=== PATIENT | male | born 1965 | race Caucasian/White ===

== ENCOUNTER 2022-02-14 12:41 | Inpatient (IN) | payer MEDICARE, OTHER ==
[2022-02-14] MEDS ORDERED: ACETAMINOPHEN TAB 325 MG TAB PO PRN (12:52)
[2022-02-14] MEDS ORDERED: NALOXONE 0.4 MG/ML 1 ML VIAL IV PRN (12:52)
[2022-02-14] MEDS ORDERED: NOREPINEPHRINE 4 MG in SODIUM CHLORIDE 0.9% 250 ML IV SCH (13:00)
[2022-02-14] MEDS ORDERED: NOREPINEPHRINE 32 MG in SODIUM CHLORIDE 0.9% 250 ML IV SCH (13:00)
--- NOTE | 2022-02-14 13:04 | ED ---
General Adult HPI - General Chief complaint: Shortness of Breath Stated complaint: pneumonia Time Seen by Provider: 02/14/22 12:43 Source: patient, EMS, RN notes reviewed, old records reviewed Mode of arrival: EMS Limitations: altered mental status - History of Present Illness Initial comments: 56-year-old male who had presented as a transfer from outside hospital. Patient is nonambulatory, he is blind. He has a neurodegenerative disorder. Patient was transferred with septic shock for bilateral pneumonia. He does have history of recurrent UTI however urinalysis was unremarkable. He had significant laboratory abnormalities prior to transfer. He was started on norepinephrine through right femoral central line and transferred for ICU placement. He was given daptomycin and cefepime prior to transfer. Blood cultures were obtained and are pending. Patient is a DO NOT RESUSCITATE. - Related Data Home Medications Medication Instructions Recorded Confirmed ARIPiprazole [Abilify] 10 mg PO HS 04/20/15 04/20/15 ARIPiprazole [Abilify] 20 mg PO DAILY 04/20/15 04/20/15 Atropine Ophth Soln 1% 5Ml [Isopto 1 drops LEFT EYE HS 04/20/15 04/20/15 Atropine 1% 5Ml] Divalproex [Depakote] 500 mg PO BID 04/20/15 04/20/15 Divalproex [Depakote] 500 mg PO BID 04/20/15 04/20/15 Docusate [Colace] 100 mg PO BID 04/20/15 04/20/15 LORazepam [Ativan] 1 mg PO BID PRN 04/20/15 04/20/15 Lactulose [Kristalose] 10 gm PO DAILY 04/20/15 04/20/15 OXcarbazepine [Trileptal] 300 mg PO BID 04/20/15 04/20/15 Ranitidine HCl 150 mg PO DAILY 04/20/15 04/20/15 Sertraline [Zoloft] 25 mg PO DAILY 04/20/15 04/20/15 Sertraline [Zoloft] 50 mg PO DAILY 04/20/15 04/20/15 Sodium Bicarbonate Tab 10 gm PO TID 04/20/15 04/20/15 Zonisamide [Zonegran] 75 mg PO HS 04/20/15 04/20/15 Zonisamide [Zonegran] 100 mg PO Q12HR 04/20/15 04/20/15 lamoTRIgine [LaMICtal] 25 mg PO BID 04/20/15 04/20/15 lamoTRIgine [LaMICtal] 200 mg PO BID 04/20/15 04/20/15 prednisoLONE ACETATE 1% OPHTH 1 drops LEFT EYE HS 04/20/15 04/20/15 [Pred Forte 1%] Allergies Allergy/AdvReac Type Severity Reaction Status Date / Time No Known Allergies Allergy Verified 04/20/15 10:38 Review of Systems ROS Statement: Those systems with pertinent positive or pertinent negative responses have been documented in the HPI. ROS Other: All systems not noted in ROS Statement are negative. Past Medical History Past Medical History: Seizure Disorder Additional Past Medical History / Comment(s): Epileptic, mentally impaired, blind History of Any Multi-Drug Resistant Organisms: None Reported Past Surgical History: Orthopedic Surgery Past Anesthesia/Blood Transfusion Reactions: No Reported Reaction Smoking Status: Never smoker Past Alcohol Use History: None Reported Past Drug Use History: None Reported - Past Family History Sister(s) Family Medical History: Cancer Brother(s) Family Medical History: Cancer General Exam Limitations: altered mental status General appearance: alert, in no apparent distress Head exam: Present: atraumatic, normocephalic ENT exam: Present: mucous membranes dry Neck exam: Present: normal inspection. Absent: tenderness, meningismus Respiratory exam: Present: rhonchi. Absent: respiratory distress Cardiovascular Exam: Present: regular rate, normal rhythm GI/Abdominal exam: Present: soft, other (Colostomy). Absent: distended, tenderness, guarding Extremities exam: Present: normal inspection, normal capillary refill Neurological exam: Present: alert Skin exam: Present: warm, dry, intact. Absent: cyanosis, diaphoretic Course Vital Signs 02/14/22 02/14/22 02/14/22 12:44 12:50 12:53 Temperature 99.2 F Pulse Rate 101 H 92 Respiratory 20 20 20 Rate Blood Pressure 91/81 100/62 O2 Sat by Pulse 100 99 Oximetry Medical Decision Making - Medical Decision Making 56-year-old male with septic shock transfer from outside hospital with bilateral pneumonia. Patient will be continued on antibiotics as well as norepinephrine. He had received a 3 L bolus prior to transfer. He'll be continued on IV fluids here. He'll be admitted to the ICU with Dr. Martin and Dr. Barrera on consult. Case discussed with Dr. Farley. All laboratory testing will be repeated. Critical Care Time Critical Care Time: Yes Total Critical Care Time: 35 Disposition Clinical Impression: Bilateral pneumonia, Septic shock Disposition: ADMITTED IP TO THIS [facility] Condition: Serious Is patient prescribed a controlled substance at d/c from ED?: No Referrals: None,Stated [Primary Care Provider] - 1-2 days Time of Disposition: 13:04
[2022-02-14] MEDS: NOREPINEPHRINE 32 MG in SODIUM CHLORIDE 0.9% 218 ML IV SCH (13:15)
[2022-02-14] MEDS: SODIUM CHLORIDE 0.9% 1,000 ML IV SCH ×2 (13:22→21:30)
[2022-02-14 13:37] LABS: Glucose,Whole Blood 99 mg/dL (75-99)
[2022-02-14 13:48] LABS: Appearance,Urine Cloudy (Clear); Bacteria,Urine Rare /hpf; Bilirubin,Urine Negative (Negative); Blood,Urine Moderate (Negative); Color,Urine Dark Yellow; Glucose,Urine (UA) Negative (Negative); Ketones,Urine Trace (Negative); Leukocyte Esterase,Urine Moderate (Negative); Mucus,Urine Moderate /hpf; Nitrite,Urine Negative (Negative); PH, Urine 5.5 (5.0-8.0); Protein,Urine 1+ (Negative); RBC,Urine 48 /hpf (0-5); Urobilinogen,Urine <2.0 mg/dL (<2.0); WBC,Urine 27 /hpf (0-5)
--- NOTE | 2022-02-14 14:11 | XR ---
EXAMINATION TYPE: XR chest 1V portable DATE OF EXAM: 02/14/2022 COMPARISON: None INDICATION: Pneumonia TECHNIQUE: Single frontal view of the chest is obtained. FINDINGS: The heart size is normal. The pulmonary vasculature is upper limits for normal. Patchy infiltrate is through the right mid and lower lung field. Some mild left infrahilar infiltrate may be present. Correlate for pneumonia. Atelectasis could be considered. IMPRESSION: 1. Right lower lobe and left infrahilar infiltrates. Correlate for atelectasis and pneumonia.
[2022-02-14 14:18] LABS: Partial Thromboplastin Time 22.1 sec (22.0-30.0); Prothrombin Time 10.9 sec (9.0-12.0)
[2022-02-14 14:21] LABS: ALT 48 U/L (4-49); African American GFR (CKD) >90 (>60 ml/min/1.73 sqM); Albumin 2.9 g/dL (3.5-5.0); Anion Gap 6 mmol/L; Blood Urea Nitrogen 14 mg/dL (9-20); Calcium 8.4 mg/dL (8.4-10.2); Carbon Dioxide 20 mmol/L (22-30); Chloride 110 mmol/L (98-107); Glucose 97 mg/dL (74-99); Non-African American GFR(CKD) >90 (>60 ml/min/1.73 sqM); Potassium 3.6 mmol/L (3.5-5.1); Sodium 136 mmol/L (137-145); Total Protein 5.6 g/dL (6.3-8.2)
[2022-02-14 14:22] LABS: AST 77 U/L (17-59); Alkaline Phosphatase 74 U/L (38-126); Magnesium 1.6 mg/dL (1.6-2.3)
[2022-02-14 14:24] LABS: Glucose,Whole Blood 84 mg/dL (75-99)
[2022-02-14 14:24] LABS: HCT 38.3 % (39.0-53.0); HGB 12.5 gm/dL (13.0-17.5); MCH 34.1 pg (25.0-35.0); MCHC 32.5 g/dL (31.0-37.0); MCV 104.9 fL (80.0-100.0); Macrocytosis Moderate; Mean Platelet Volume 7.7; Platelet Count 161 k/uL (150-450); RBC 3.66 m/uL (4.30-5.90); RDW 14.1 % (11.5-15.5)
[2022-02-14] MEDS ORDERED: VANCOMYCIN IV PER PHARMACY 1 EACH MISC MISCELLANE PRN (14:54)
[2022-02-14 15:00] LABS: Band Neutrophils % 10 %; Monocytes # (M) 0.85 k/uL (0-1.0); Neutrophils % (M) 57 %; Nucleated Red Blood Cells 0 /100 WBC (0-0); Total Cells Counted 100
--- NOTE | 2022-02-14 15:02 | P.CNPUL ---
History of Present Illness Consult date: 02/14/22 Requesting physician: Matthew E Sheet Reason for consult: pneumonia, other (Septic shock) Chief complaint: Altered mental status, shortness of breath, and fever. History of present illness: This is a 56-year-old white male with history of Anita gestaut/LGS syndrome,, patient had 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 Patient lives at [facility] in [place], and patient is mostly wheelchair bound, bed bound, and since he was born the patient had many issues related to severe osteoporosis and recurrent left hip fractures, history of bowel issues requiring colostomy about a year and a half ago, history of recurrent urinary tract infections requiring multiple stent placements by Dr. 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 History of hypogonadism. History of obesity. And the patient has been seen in many institutions over the years including [facility], [facility], [facility], and most of the admissions were mostly related to recurrent infections. Few weeks ago, patient had stent placement by Dr. Johnson at [facility]. Apparently patient had multiple episodes of VRE urinary tract infections and has been frequently on antibiotics almost on a regular basis. Today the patient was noted to have altered mental status, fever, shortness of breath, and the staff at the [facility] sent the patient down to [facility] ER. His workup in the ER included a chest x-ray which was consistent with bilateral pneumonia right more so than left, his urinalysis was relatively unremarkable. Patient was febrile with a temp as high as 103, he was also hypotensive requiring fluid boluses, and required norepinephrine drip through a right femoral triple-lumen catheter that was placed by the ER physician at [facility]. Arrangements were made to transfer the patient to [facility], mother declined transfer to [facility] in [place]. I saw the patient in the ER, he is on 0.13 mcg/kg/m of norepinephrine, he already received antibiotics in the form of daptomycin and cefepime at [facility], I evaluated the patient, and recommended admission to the ICU. CODE STATUS has been discussed with the mother, and apparently the patient is DO NOT RESUSCITATE CODE STATUS at present Review of Systems ROS unobtainable: due to mental status (According to mother, patient had history of seizures most of his life secondary to LGS, history of recurrent bone frac tures, bones are brittle and this is related to seizure medications. Patient had recurrent and multiple episodes of urinary tract infections and sepsis.) Past Medical History Past Medical History: Seizure Disorder Additional Past Medical History / Comment(s): Epileptic, mentally impaired, blind history of nephrolithiasis,ANITA GESTAUT SYNDROME, history of hypogonadism, history of hyponatremia, and history of recurrent episodes of sepsis mostly related to urinary tract infections. And mostly related to nephrolithiasis. History of Any Multi-Drug Resistant Organisms: None Reported Past Surgical History: Orthopedic Surgery Additional Past Surgical History / Comment(s): Cystoscopy, cystourethroscopy, shockwave lithotripsy, open reduction internal fixation of right ankle open treatment of medial malleolus fracture bypass descend colon cut, colostomy i nsertion of PICC lines history of buttock debridement incision and drainage and excision of buttock skin, open reduction internal fixation of tibia 01/09/20 Past Anesthesia/Blood Transfusion Reactions: No Reported Reaction Smoking Status: Never smoker Past Alcohol Use History: None Reported Past Drug Use History: None Reported - Past Family History Sister(s) Family Medical History: Cancer Brother(s) Family Medical History: Cancer Medications and Allergies Home Medications Medication Instructions Recorded Confirmed Type Atropine Ophth Soln 1% 5Ml [Isopto 1 drops LEFT EYE HS 04/20/15 02/14/22 History Atropine 1% 5Ml] LORazepam [Ativan] 1 mg PO DIRECTED PRN 04/20/15 02/14/22 History Sodium Bicarbonate Tab 650 mg PO TID 04/20/15 02/14/22 History Zonisamide [Zonegran] See Taper PO DAILY 04/20/15 02/14/22 History lamoTRIgine [LaMICtal] 25 mg PO BID 04/20/15 02/14/22 History lamoTRIgine [LaMICtal] 200 mg PO BID 04/20/15 02/14/22 History prednisoLONE ACETATE 1% OPHTH 1 drops LEFT EYE QID 04/20/15 02/14/22 History [Pred Forte 1%] Acetaminophen Tab [Tylenol Tab] 1,000 mg PO Q6HR PRN 02/14/22 02/14/22 History Benzocaine 20 % Gel [Orajel] 1 applic TOPICAL QID PRN 02/14/22 02/14/22 History Brivaracetam [Briviact] 25 mg PO HS 02/14/22 02/14/22 History Brivaracetam [Briviact] 50 mg PO HS 02/14/22 02/14/22 History Cenobamate [Xcopri] 200 mg PO HS 02/14/22 02/14/22 History Chlorhexidine Gluconate [Peridex] 15 ml PO BID 02/14/22 02/14/22 History Dextrose Chew [Glucose Chew Tab] 4 gm PO DIRECTED PRN 02/14/22 02/14/22 History Divalproex ER [Depakote ER] 1,000 mg PO HS 02/14/22 02/14/22 History Divalproex ER [Depakote ER] 250 mg PO HS 02/14/22 02/14/22 History Ergocalciferol [Vitamin D2 (1250 1,250 mcg PO WE 02/14/22 02/14/22 History Mcg = 73161 Iu)] Folic Acid 1 mg PO HS 02/14/22 02/14/22 History Ibuprofen [Motrin Ib] 200 - 800 mg PO Q8H PRN 02/14/22 02/14/22 History Ibuprofen [Motrin] 600 mg PO Q6H PRN 02/14/22 02/14/22 History Lactulose 20 gm PO DAILY 02/14/22 02/14/22 History Levothyroxine Sodium [Synthroid] 75 mcg PO DAILY 02/14/22 02/14/22 History Magnesium Hydroxide [Milk of 2,400 mg PO HS 02/14/22 02/14/22 History Magnesia] Nutritional Supplim 1 tab PO BID@1200,1930 02/14/22 02/14/22 History OXcarbazepine [Oxtellar Xr] 1,200 mg PO HS 02/14/22 02/14/22 History Omeprazole 40 mg PO DAILY 02/14/22 02/14/22 History Polyethylene Glycol 3350 [Miralax] 17 gm PO DAILY 02/14/22 02/14/22 History Potassium Chloride ER [K-Dur 10] 10 meq PO DAILY 02/14/22 02/14/22 History Propranolol [Inderal] 40 mg PO DAILY@1230 PRN 02/14/22 02/14/22 History Sennosides [Senna] 17.2 mg PO HS 02/14/22 02/14/22 History Sertraline [Zoloft] 100 mg PO DAILY 02/14/22 02/14/22 History Tamsulosin [Flomax] 0.4 mg PO DAILY 02/14/22 02/14/22 History risperiDONE [RisperDAL] 2 mg PO HS 02/14/22 02/14/22 History risperiDONE [RisperDAL] 4 mg PO DAILY 02/14/22 02/14/22 History Allergies Allergy/AdvReac Type Severity Reaction Status Date / Time No Known Allergies Allergy Verified 02/14/22 13:42 Physical Exam Vitals: Vital Signs Temp Pulse Resp BP Pulse Ox 02/14/22 13:39 88 16 112/66 97 02/14/22 13:18 89 18 80/58 02/14/22 12:53 92 20 100/62 99 02/14/22 12:50 20 02/14/22 12:44 99.2 F 101 H 20 91/81 100 Intake and Output 02/13/22 02/14/22 02/14/22 22:59 06:59 14:59 Intake Total 0.409 Balance 0.409 Intake: Intake, IV Titration 0.409 Amount Norepinephrine 32 mg In 0.409 Sodium Chloride 0.9% 218 ml @ 0.1 MCG/KG/MIN 4.088 mls/hr IV .Q24H [facility] Rx#: [id number] Other: Weight 87.2 kg Physical Exam: Revealed a 56-year-old white male obese, blind, confused, not in distress Head: Atraumatic, normocephalic. Eyes: Bilateral eye blindness no icterus. No discharge. Neck supple, no tracheal deviation, no stridor. Throat dry mucous membranes otherwise negative. Chest: Symmetrical chest expansion, minimal crackles at the bases. No wheezes. Cardiac Exam: Tachycardic, regular rhythm, no murmur. Abdomen: [Obese, Soft, nontender, no megaly, no rebound, no guarding, normal bowel sounds.] Left sided colostomy is noted. With have full bag. Extremities: [No clubbing, no edema, no cyanosis.] Muscle wasting noted bilaterally in both lower extremities. Good pulses bilaterally. Neurological Exam: Arousable, does not follow any instructions, confused, generally weak. Psychiatric: Could not be assessed. Results - Laboratory Findings CBC and BMP: 02/14/22 14:00 02/14/22 14:00 PT/INR, D-dimer PT 10.9 sec (9.0-12.0) 02/14/22 14:00 INR 1.0 (<1.2) 02/14/22 14:00 Abnormal lab findings: Abnormal Labs 02/14/22 02/14/22 02/14/22 13:16 13:16 14:00 RBC 3.66 L Hgb 12.5 L Hct 38.3 L MCV 104.9 H Sodium Chloride Carbon Dioxide Plasma Lactic Acid Keaton 2.4 H* AST Total Protein Albumin Urine Protein 1+ H Urine Ketones Trace H Urine Blood Moderate H Ur Leukocyte Esterase Moderate H Urine RBC 48 H Urine WBC 27 H Urine Bacteria Rare H Urine Mucus Moderate H 02/14/22 14:00 RBC Hgb Hct MCV Sodium 136 L Chloride 110 H Carbon Dioxide 20 L Plasma Lactic Acid Keaton AST 77 H Total Protein 5.6 L Albumin 2.9 L Urine Protein Urine Ketones Urine Blood Ur Leukocyte Esterase Urine RBC Urine WBC Urine Bacteria Urine Mucus - Diagnostic Findings Chest x-ray: image reviewed (As noted in HPI, there is evidence of bilateral pneumonia.) Assessment and Plan Assessment: Impression: Sepsis and septic shock, patient required fluid boluses followed by norepinephrine. 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 However his urinalysis is clean on this admission. Cultures are pending. History of nephrolithiasis. 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 Severe osteoporosis and recurrent bone fractures. Mentally impaired and blind History of colostomy. Recommendation: Admit patient to the ICU Start patient on antibiotics will recommend vancomycin and cefepime for now empirically Swallow evaluation and aspiration precautions in the meantime keep the patient nothing by mouth. GI and DVT prophylaxis. Check urine sputum and blood cultures Infectious disease to see on consultation Urology consultation with Dr. Johnson regarding his nephrolithiasis and previous stent placement. Continue norepinephrine and titrate accordingly maintaining a mean arterial pressure of over 65. Resume home medications mostly his seizure medications. Neurology to see on consultation for his seizures /LGS Discussed CODE STATUS with the mother at bedside, wishes DO NOT RESUSCITATE CODE STATUS at present. Consider PEG tube placement if the patient failed the swallow evaluation. Patient is extremely ill, prognosis is guarded, we will admit to the ICU. Critical care time is over 55 minutes. Time with Patient: Greater than 30
[2022-02-14] MEDS ORDERED: ACETAMINOPHEN TAB 500 MG TAB PO PRN (15:08)
[2022-02-14] MEDS ORDERED: LORazepam 1 MG TAB PO PRN (15:08)
[2022-02-14] MEDS ORDERED: BENZOCAINE 20 % GEL 11.9 GM TUBE MM PRN (15:08)
[2022-02-14] MEDS ORDERED: ERGOCALCIFEROL 1,250 MCG (50,000 IU) CAPSULE PO SCH (17:30)
[2022-02-14] MEDS: VANCOMYCIN 1,500 MG in SODIUM CHLORIDE 0.9% 250 ML IVPB SCH (17:41)
--- NOTE | 2022-02-14 17:47 | HP ---
HISTORY AND PHYSICAL DATE OF SERVICE: 02/14/2022 CHIEF COMPLAINTS: Shortness of breath and pneumonia. HISTORY OF PRESENT ILLNESS: This 56-year-old gentleman with a past medical history of recurrent UTIs, history of seizure disorder, epilepsy, mental impairment, was living in an [facility] home. The patient was feeling well yesterday, but subsequently today the patient had features of hypotension, septic shock and pneumonia. He was evaluated in [facility] and was sent to [facility]. The patient was admitted to ICU. Dr. Martin is following the patient. Patient has been started on broad-spectrum IV antibiotics as well as Levophed at this time. Most of the history was taken from my discussion with the family at the bedside at this time. PAST MEDICAL HISTORY: History of seizure disorder, epilepsy, recurrent UTIs. HOME MEDICATIONS: Reviewed, which include Risperdal, Lamictal. Doses and other medications are reviewed. ALLERGIES: NONE. FAMILY HISTORY,: History of cancer. Social history and review of systems could not be taken at length. PHYSICAL EXAMINATION: Pulse is 71, blood pressure is 80/58, respiration 18, temperature 100.3, pulse ox 99% on 5 L. HEENT: Conjunctivae normal. NECK: No jugular venous distention. CARDIOVASCULAR: S1, S2 muffled. RESPIRATION: Breath sounds diminished at the bases. A few scattered rhonchi. ABDOMEN: Soft, nontender. LEGS: No edema. No swelling. NERVOUS SYSTEM: No focal deficit. SKIN: No ulcer, rash, bleeding. JOINTS: No active deforming arthropathy. LABS: WBC 5, hemoglobin 12.5. Sodium is 130. Other labs are noted. Chest x-ray reviewed personally. ASSESSMENT: 1. Acute bilateral pneumonia, right more than left, with possibly aspiration with hypotension and sepsis. 2. Seizure disorder. 3. History of nephrolithiasis. 4. History of recurrent urinary tract infection. 5. NO CODE, NO CPR, NO VENT. RECOMMENDATIONS AND DISCUSSION: In this 56-year-old gentleman who presented with multiple complex medical issues, we will monitor the patient closely. We will initiate broad-spectrum IV antibiotics, obtain the cultures. Closely monitor in ICU. Continue with the Levophed and pressor support. Otherwise, I would also recommend a speech pathology evaluation and modified barium swallow also. The patient is currently NO CODE. Resume the home medications and proton pump inhibitors and DVT prophylaxis. Discussed with staff at length. Further recommendations to follow. MMODL / IJN: [id number] /
[2022-02-14] MEDS: LEVOTHYROXINE 75 MCG TAB PO SCH (20:34)
[2022-02-14] MEDS: PANTOPRAZOLE 40 MG/10 ML VIAL IVP SCH (20:41)
[2022-02-14] MEDS: ENOXAPARIN 40 MG/0.4 ML SYRINGE SQ SCH (20:41)
[2022-02-14] MEDS: CEFEPIME 2 GM in SODIUM CHLORIDE 0.9% 100 ML IVPB SCH (20:41)
[2022-02-14] MEDS: prednisoLONE ACETATE 1% OPHTH DROPS 5 ML BTL LEFT EYE SCH ×2 (20:42→21:33)
[2022-02-14] MEDS: SODIUM BICARBONATE TAB 650 MG TAB PO SCH ×2 (20:42→21:36)
[2022-02-14] MEDS: ZONISAMIDE 100 MG CAP PO SCH (20:42)
[2022-02-14] MEDS: ATROPINE OPHTH SOLN 1% 5ML BTL LEFT EYE SCH (21:30)
[2022-02-14] MEDS: BRIVARACETAM 25 MG PO SCH (21:31)
[2022-02-14] MEDS: CENOBAMATE 200 MG PO SCH (21:31)
[2022-02-14] MEDS: BRIVARACETAM 50 MG PO SCH (21:31)
[2022-02-14] MEDS: OXCARBAZEPINE 600 MG PO SCH (21:32)
[2022-02-14] MEDS: MAGNESIUM HYDROXIDE 2,400 MG/10 ML CUP PO SCH (21:32)
[2022-02-14] MEDS: FOLIC ACID 1 MG TAB PO SCH (21:35)
[2022-02-14] MEDS: SENNOSIDES 8.6 MG TAB PO SCH (21:36)
[2022-02-14] MEDS: lamoTRIgine 100 MG TAB PO SCH (21:36)
[2022-02-14] MEDS: risperiDONE 2 MG TAB PO SCH (21:36)
[2022-02-14] MEDS: lamoTRIgine 25 MG TAB PO SCH (21:36)
[2022-02-14] MEDS: DIVALPROEX ER 500 MG TAB.ER.24H PO SCH (21:50)
[2022-02-14] MEDS: DIVALPROEX ER 250 MG TAB.ER.24H PO SCH (21:50)
[2022-02-15 00:03] LABS: Glucose,Whole Blood 65 mg/dL (75-99)
[2022-02-15] MEDS: CEFEPIME 2 GM in SODIUM CHLORIDE 0.9% 100 ML IVPB SCH ×4 (00:17→23:33)
[2022-02-15 00:25] LABS: Glucose,Whole Blood 81 mg/dL (75-99)
[2022-02-15] MEDS: VANCOMYCIN 1,500 MG in SODIUM CHLORIDE 0.9% 250 ML IVPB SCH ×2 (04:03→16:45)
[2022-02-15] MEDS: SODIUM CHLORIDE 0.9% 1,000 ML IV SCH ×2 (04:04→17:12)
[2022-02-15 05:49] LABS: Glucose,Whole Blood 52 mg/dL (75-99)
[2022-02-15] MEDS: DEXTROSE 4 GM CHEWABLE PO PRN ×2 (05:50→23:32)
[2022-02-15 06:11] LABS: Glucose,Whole Blood 64 mg/dL (75-99)
[2022-02-15] MEDS: LEVOTHYROXINE 75 MCG TAB PO SCH (06:18)
[2022-02-15 06:24] LABS: Glucose,Whole Blood 67 mg/dL (75-99)
[2022-02-15 06:39] LABS: Glucose,Whole Blood 76 mg/dL (75-99)
--- NOTE | 2022-02-15 07:47 | P.CONS ---
History of Present Illness - Reason for Consult Consult date: 02/14/22 Sepsis/pneumonia Requesting physician: Matthew E Sheet - Chief Complaint Fever 1 day - History of Present Illness Patient is a 56-year-old male with a past medical history significant for Leighton gestaut/LGS syndrome history of seizure disorder, renal stone and rec urrent urinary tract infection in this patient who is a resident of assisted living facility, patient recently did did have a ureteral stent placement by Dr. Johnson and this patient did have a history of ureteric infection with multiple pathogen including VRE the patient was noticed this morning to have a altered mental status a fever of 103 degrees formulae and the patient was complaining of some shortness of breath for the patient was taken to [facility] ER patient has been evaluated by the ER physician at that facility apparently the patient have a UA that was unremarkable patient did have a chest x-ray suggestive of right-sided pneumonia patient was hypotensive requiring multiple fluid boluses and subsequently patient was transferred to [facility] for higher level of care patient on presentation to this facility did have a low-grade fever 100.3 degrees small right did have a normal white count elevated lactic acid creatinine was normal AST was mildly elevated UA done here is positive with moderate leukocyte esterase and 27 WBC chest x-ray right lower lobe and left inf rahilar infiltrate patient has been admitted to ICU and started on cefepime infectious disease was consulted for further management of antibiotic therapy most information has been obtained from review the chart and talking to nursing staff as the patient himself not really good historian Review of Systems Positive points has been mentioned in HPI complete review could not be obtained because of his underlying mental status Past Medical History Past Medical History: Seizure Disorder Additional Past Medical History / Comment(s): Epileptic, mentally impaired, blind history of nephrolithiasis,ANITA GESTAUT SYNDROME, history of hypogonadism, history of hyponatremia, and history of recurrent episodes of sepsis mostly related to urinary tract infections. And mostly related to nephrolithiasis. History of Any Multi-Drug Resistant Organisms: None Reported Past Surgical History: Orthopedic Surgery Past Anesthesia/Blood Transfusion Reactions: No Reported Reaction Smoking Status: Never smoker Past Alcohol Use History: None Reported Past Drug Use History: None Reported - Past Family History Sister(s) Family Medical History: Cancer Brother(s) Family Medical History: Cancer Medications and Allergies Home Medications Medication Instructions Recorded Confirmed Type Atropine Ophth Soln 1% 5Ml [Isopto 1 drops LEFT EYE HS 04/20/15 02/14/22 History Atropine 1% 5Ml] LORazepam [Ativan] 1 mg PO DIRECTED PRN 04/20/15 02/14/22 History Sodium Bicarbonate Tab 650 mg PO TID 04/20/15 02/14/22 History Zonisamide [Zonegran] See Taper PO DAILY 04/20/15 02/14/22 History lamoTRIgine [LaMICtal] 25 mg PO BID 04/20/15 02/14/22 History lamoTRIgine [LaMICtal] 200 mg PO BID 04/20/15 02/14/22 History prednisoLONE ACETATE 1% OPHTH 1 drops LEFT EYE QID 04/20/15 02/14/22 History [Pred Forte 1%] Acetaminophen Tab [Tylenol Tab] 1,000 mg PO Q6HR PRN 02/14/22 02/14/22 History Benzocaine 20 % Gel [Orajel] 1 applic TOPICAL QID PRN 02/14/22 02/14/22 History Brivaracetam [Briviact] 25 mg PO HS 02/14/22 02/14/22 History Brivaracetam [Briviact] 50 mg PO HS 02/14/22 02/14/22 History Cenobamate [Xcopri] 200 mg PO HS 02/14/22 02/14/22 History Chlorhexidine Gluconate [Peridex] 15 ml PO BID 02/14/22 02/14/22 History Dextrose Chew [Glucose Chew Tab] 4 gm PO DIRECTED PRN 02/14/22 02/14/22 History Divalproex ER [Depakote ER] 1,000 mg PO HS 02/14/22 02/14/22 History Divalproex ER [Depakote ER] 250 mg PO HS 02/14/22 02/14/22 History Ergocalciferol [Vitamin D2 (1250 1,250 mcg PO WE 02/14/22 02/14/22 History Mcg = 28778 Iu)] Folic Acid 1 mg PO HS 02/14/22 02/14/22 History Ibuprofen [Motrin Ib] 200 - 800 mg PO Q8H PRN 02/14/22 02/14/22 History Ibuprofen [Motrin] 600 mg PO Q6H PRN 02/14/22 02/14/22 History Lactulose 20 gm PO DAILY 02/14/22 02/14/22 History Levothyroxine Sodium [Synthroid] 75 mcg PO DAILY 02/14/22 02/14/22 History Magnesium Hydroxide [Milk of 2,400 mg PO HS 02/14/22 02/14/22 History Magnesia] Nutritional Supplim 1 tab PO BID@1200,1930 02/14/22 02/14/22 History OXcarbazepine [Oxtellar Xr] 1,200 mg PO HS 02/14/22 02/14/22 History Omeprazole 40 mg PO DAILY 02/14/22 02/14/22 History Polyethylene Glycol 3350 [Miralax] 17 gm PO DAILY 02/14/22 02/14/22 History Potassium Chloride ER [K-Dur 10] 10 meq PO DAILY 02/14/22 02/14/22 History Propranolol [Inderal] 40 mg PO DAILY@1230 PRN 02/14/22 02/14/22 History Sennosides [Senna] 17.2 mg PO HS 02/14/22 02/14/22 History Sertraline [Zoloft] 100 mg PO DAILY 02/14/22 02/14/22 History Tamsulosin [Flomax] 0.4 mg PO DAILY 02/14/22 02/14/22 History risperiDONE [RisperDAL] 2 mg PO HS 02/14/22 02/14/22 History risperiDONE [RisperDAL] 4 mg PO DAILY 02/14/22 02/14/22 History Allergies Allergy/AdvReac Type Severity Reaction Status Date / Time No Known Allergies Allergy Verified 02/14/22 13:42 Physical Exam Vitals: Vital Signs Temp Pulse Resp BP Pulse Ox 02/14/22 14:30 100.3 F H 71 16 134/60 99 02/14/22 13:39 88 16 112/66 97 02/14/22 13:18 89 18 80/58 02/14/22 12:53 92 20 100/62 99 02/14/22 12:50 20 02/14/22 12:44 99.2 F 101 H 20 91/81 100 Intake and Output 02/13/22 02/14/22 02/14/22 22:59 06:59 14:59 Intake Total 0.409 Balance 0.409 Intake: Intake, IV Titration 0.409 Amount Norepinephrine 32 mg In 0.409 Sodium Chloride 0.9% 218 ml @ 0.1 MCG/KG/MIN 4.088 mls/hr IV .Q24H [facility] Rx#: [id number] Other: Weight 87.2 kg GENERAL DESCRIPTION: Middle-aged male lying in bed, no distress. No tachypnea or accessory muscle of respiration use. HEENT: Shows Pallor , no scleral icterus. Oral mucous membrane is dry. No pharyngeal erythema or thrush NECK: Trachea central, no thyromegaly. LUNGS: Unlabored breathing. Decreased breath sounds at the base. No wheeze or crackle. HEART: S1, S2, regular rate and rhythm. No loud murmur ABDOMEN: Soft, no tenderness , guarding or rigidity, no organomegaly EXTREMITIES: No edema of feet. SKIN: No rash, no masses palpable. NEUROLOGICAL: The patient is awake, however orientation could not be determined because of mental status Results CBC & Chem 7: 02/14/22 14:00 02/14/22 14:00 Labs: Abnormal Lab Results - Last 24 Hours (Table) 02/14/22 02/14/22 02/14/22 Range/Units 13:16 13:16 14:00 RBC 3.66 L (4.30-5.90) m/uL Hgb 12.5 L (13.0-17.5) gm/dL Hct 38.3 L (39.0-53.0) % MCV 104.9 H (80.0-100.0) fL Sodium (137-145) mmol/L Chloride (98-107) mmol/L Carbon Dioxide (22-30) mmol/L Plasma Lactic Acid Keaton 2.4 H* (0.7-2.0) mmol/L AST (17-59) U/L Total Protein (6.3-8.2) g/dL Albumin (3.5-5.0) g/dL Urine Protein 1+ H (Negative) Urine Ketones Trace H (Negative) Urine Blood Moderate H (Negative) Ur Leukocyte Esterase Moderate H (Negative) Urine RBC 48 H (0-5) /hpf Urine WBC 27 H (0-5) /hpf Urine Bacteria Rare H (None) /hpf Urine Mucus Moderate H (None) /hpf 02/14/22 Range/Units 14:00 RBC (4.30-5.90) m/uL Hgb (13.0-17.5) gm/dL Hct (39.0-53.0) % MCV (80.0-100.0) fL Sodium 136 L (137-145) mmol/L Chloride 110 H (98-107) mmol/L Carbon Dioxide 20 L (22-30) mmol/L Plasma Lactic Acid Keaton (0.7-2.0) mmol/L AST 77 H (17-59) U/L Total Protein 5.6 L (6.3-8.2) g/dL Albumin 2.9 L (3.5-5.0) g/dL Urine Protein (Negative) Urine Ketones (Negative) Urine Blood (Negative) Ur Leukocyte Esterase (Negative) Urine RBC (0-5) /hpf Urine WBC (0-5) /hpf Urine Bacteria (None) /hpf Urine Mucus (None) /hpf Assessment and Plan (1) Bilateral pneumonia Current Visit: Yes Status: Acute Code(s): J18.9 - PNEUMONIA, UNSPECIFIED ORGANISM SNOMED Code(s): 715816087 Plan: 1patient presented hospital with sepsis in this patient did have a fever elevated lactic acid tachycardia concerning for right lower lobe pneumonia in this patient who has been out of the hospital concerning for possible resistant gram-positive or gram-negative pathogen. 2we will try to obtain a sputum for gram stain and culture. 3cefepime 2 g every 8 hours. 4vancomycin pharmacy to dose target trough of 15 while watching kidney function and vancomycin trough closely. We will follow on clinical condition and cultures to further adjust medication if needed Thank you for this consultation will follow this patient along with you Time with Patient: Greater than 30
[2022-02-15] MEDS: ENOXAPARIN 40 MG/0.4 ML SYRINGE SQ SCH (08:13)
[2022-02-15] MEDS: PANTOPRAZOLE 40 MG/10 ML VIAL IVP SCH (08:13)
[2022-02-15] MEDS: SERTRALINE 100 MG TAB PO SCH (08:14)
[2022-02-15] MEDS: risperiDONE 2 MG TAB PO SCH ×2 (08:14→20:43)
[2022-02-15] MEDS: lamoTRIgine 25 MG TAB PO SCH ×2 (08:14→20:43)
[2022-02-15] MEDS: lamoTRIgine 100 MG TAB PO SCH ×2 (08:14→20:43)
[2022-02-15] MEDS: ZONISAMIDE 100 MG CAP PO SCH (08:14)
[2022-02-15] MEDS: SODIUM BICARBONATE TAB 650 MG TAB PO SCH ×3 (08:14→21:03)
[2022-02-15 08:30] LABS: ALT 50 U/L (4-49); AST 56 U/L (17-59); African American GFR (CKD) >90 (>60 ml/min/1.73 sqM); Albumin 2.8 g/dL (3.5-5.0); Alkaline Phosphatase 64 U/L (38-126); Anion Gap 6 mmol/L; Blood Urea Nitrogen 15 mg/dL (9-20); Calcium 8.3 mg/dL (8.4-10.2); Carbon Dioxide 20 mmol/L (22-30); Chloride 112 mmol/L (98-107); Glucose 97 mg/dL (74-99); Non-African American GFR(CKD) >90 (>60 ml/min/1.73 sqM); Potassium 3.7 mmol/L (3.5-5.1); Sodium 138 mmol/L (137-145); Total Bilirubin 0.8 mg/dL (0.2-1.3); Total Protein 5.5 g/dL (6.3-8.2)
[2022-02-15] MEDS: prednisoLONE ACETATE 1% OPHTH DROPS 5 ML BTL LEFT EYE SCH ×4 (08:38→21:03)
[2022-02-15 08:41] LABS: Basophils % (A) 1 %; Eosinophils # (A) 0.1 k/uL (0-0.7); Eosinophils % (A) 1 %; HCT 36.7 % (39.0-53.0); Hypochromasia Marked; Lymphocytes # (A) 0.8 k/uL (1.0-4.8); Lymphocytes % (A) 14 %; MCH 33.8 pg (25.0-35.0); Macrocytosis Marked; Monocytes # (A) 0.4 k/uL (0-1.0); Monocytes % (A) 6 %; Neutrophils # (A) 4.3 k/uL (1.3-7.7); Neutrophils % (A) 77 %; Platelet Count 139 k/uL (150-450); RBC 3.26 m/uL (4.30-5.90); RDW 14.1 % (11.5-15.5); WBC 5.7 k/uL (3.8-10.6)
[2022-02-15 08:46] LABS: MCV 112.5 fL (80.0-100.0)
[2022-02-15 09:23] LABS: C Reactive Protein 19.2 mg/dL (<1.0)
--- NOTE | 2022-02-15 09:23 | XR ---
EXAMINATION TYPE: XR chest 1V portable DATE OF EXAM: 02/15/2022 HISTORY: Shortness of breath. COMPARISON: 02/14/2022 TECHNIQUE: Single view of the chest is submitted. FINDINGS: Demonstrated are scattered senescent parenchymal change. Patchy perihilar and basilar infiltrates right greater than left persist unchanged. The heart is stable. Hilar and mediastinal structures are within normal limits. Degenerative changes are seen of the dorsal spine. IMPRESSION: 1. No change in features of pneumonia.
[2022-02-15 09:30] LABS: Lamotrigine (Lamictal) 9.3 ug/mL (2.0-15.0)
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
--- NOTE | 2022-02-15 11:30 | P.PN ---
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 Patient lives at [facility] in [place], and patient is mostly wheelchair bound, bed bound, and since he was born the patient had many issues related to severe osteoporosis and recurrent left hip fractures, history of bowel issues requiring colostomy about a year and a half ago, history of recurrent urinary tract infections requiring multiple stent placements by Dr. 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 History of hypogonadism. History of obesity. And the patient has been seen in many institutions over the years including [facility], [facility], [facility], and most of the admissions were mostly related to recurrent infections. Few weeks ago, patient had stent placement by Dr. Johnson at [facility]. Apparently patient had multiple epis odes of VRE urinary tract infections and has been frequently on antibiotics almost on a regular basis. Today the patient was noted to have altered mental status, fever, shortness of breath, and the staff at the [facility] sent the patient down to [facility] ER. His workup in the ER included a chest x-ray which was consistent with bilateral pneumonia right more so than left, his urinalysis was relatively unremarkable. Patient was febrile with a temp as high as 103, he was also hypotensive requiring fluid boluses, and required norepinephrine drip through a right femoral triple-lumen catheter that was placed by the ER physician at [facility]. Arrangements were made to transfer the patient to [facility], mother declined transfer to [facility] in [place]. I saw the patient in the ER, he is on 0.13 mcg/kg/m of norepinephrine, he already received antibiotics in the form of daptomycin and cefepime at [facility], I evaluated the patient, and recommended admission to the ICU. CODE STATUS has been discussed with the mother, and apparently the patient is DO NOT RESUSCITATE CODE STATUS at present Patient was reevaluated today on 02/15/2022, patient remains in the ICU, he is actually doing quite well better than expected, he is on room air, remains on vancomycin and cefepime, he is off norepinephrine, and he seems to be hemodynamically stable. Patient is having a barium swallow evaluation today. Remains on IV fluids at 1 30 mL per hour. Blood cultures and urine cultures are pending. Patient is being followed by many consultants including neurology and infectious disease. WBC count is 5.7 hemoglobin is 11 was are normal renal profile is normal Objective - Vital Signs Vital signs: Vital Signs Temp 98.3 F 02/15/22 08:00 Pulse 86 02/15/22 11:00 Resp 15 02/15/22 11:00 BP 99/58 02/15/22 11:00 Pulse Ox 98 02/15/22 11:00 Intake & Output 02/14/22 02/15/22 02/15/22 18:59 06:59 18:59 Intake Total 610.725 9905.090 750 Output Total 180 375 225 Balance 979.317 2437.090 525 Weight 87.2 kg 90.8 kg Intake: IV 1780 750 Cefepime 2 gm In Sodium 100 100 Chloride 0.9% 100 ml @ 25 mls/hr IVPB Q8HR [facility] Rx# :[id number] Sodium Chloride 0.9% 1, 1430 650 000 ml @ 130 mls/hr IV . Q7H42M [facility] Rx#:[id number] Vancomycin 1,500 mg In 250 Sodium Chloride 0.9% 250 ml @ 125 mls/hr IVPB Q12H [facility] Rx#:[id number] Intake, IV Titration 520.409 168.090 Amount Norepinephrine 32 mg In 0.409 38.090 Sodium Chloride 0.9% 218 ml @ 0.1 MCG/KG/MIN 4.088 mls/hr IV .Q24H [facility] Rx#: [id number] Sodium Chloride 0.9% 1, 520 130 000 ml @ 130 mls/hr IV . Q7H42M [facility] Rx#:[id number] Output: Urine 180 375 225 Other: Voiding Method Indwelling Catheter Indwelling Catheter Indwelling Catheter # Bowel Movements 1 - Exam Physical Exam: Revealed a 56-year-old white male obese, blind, confused, not in distress, patient is on room air. Head: Atraumatic, normocephalic. Eyes: Bilateral eye blindness no icterus. No discharge. Neck supple, no tracheal deviation, no stridor. Throat dry mucous membranes otherwise negative. Chest: Symmetrical chest expansion, minimal crackles at the bases. No wheezes. Cardiac Exam: Tachycardic, regular rhythm, no murmur. Abdomen: [Obese, Soft, nontender, no megaly, no rebound, no guarding, normal bowel sounds.] Left sided colostomy is noted. With have full bag. Extremities: [No clubbing, no edema, no cyanosis.] Muscle wasting noted bilaterally in both lower extremities. Good pulses bilaterally. Neurological Exam : does not follow any instructions, confused, generally weak. Psychiatric: Could not be assessed. - Labs CBC & Chem 7: 02/15/22 07:11 02/15/22 07:11 Labs: Abnormal Lab Results - Last 24 Hours (Table) 02/14/22 02/14/22 02/14/22 Range/Units 13:16 13:16 14:00 RBC 3.66 L (4.30-5.90) m/uL Hgb 12.5 L (13.0-17.5) gm/dL Hct 38.3 L (39.0-53.0) % MCV 104.9 H (80.0-100.0) fL MCHC (31.0-37.0) g/dL Plt Count (150-450) k/uL Lymphocytes # (1.0-4.8) k/uL Lymphocytes # (Manual) 0.80 L (1.0-4.8) k/uL Macrocytosis Sodium (137-145) mmol/L Chloride (98-107) mmol/L Carbon Dioxide (22-30) mmol/L POC Glucose (mg/dL) (75-99) mg/dL Plasma Lactic Acid Keaton 2.4 H* (0.7-2.0) mmol/L Calcium (8.4-10.2) mg/dL AST (17-59) U/L ALT (4-49) U/L C-Reactive Protein (<1.0) mg/dL Total Protein (6.3-8.2) g/dL Albumin (3.5-5.0) g/dL Urine Protein 1+ H (Negative) Urine Ketones Trace H (Negative) Urine Blood Moderate H (Negative) Ur Leukocyte Esterase Moderate H (Negative) Urine RBC 48 H (0-5) /hpf Urine WBC 27 H (0-5) /hpf Urine Bacteria Rare H (None) /hpf Urine Mucus Moderate H (None) /hpf 02/14/22 02/14/22 02/14/22 Range/Units 14:00 16:27 19:06 RBC (4.30-5.90) m/uL Hgb (13.0-17.5) gm/dL Hct (39.0-53.0) % MCV (80.0-100.0) fL MCHC (31.0-37.0) g/dL Plt Count (150-450) k/uL Lymphocytes # (1.0-4.8) k/uL Lymphocytes # (Manual) (1.0-4.8) k/uL Macrocytosis Sodium 136 L (137-145) mmol/L Chloride 110 H (98-107) mmol/L Carbon Dioxide 20 L (22-30) mmol/L POC Glucose (mg/dL) (75-99) mg/dL Plasma Lactic Acid Keaton 2.5 H* 2.5 H* (0.7-2.0) mmol/L Calcium (8.4-10.2) mg/dL AST 77 H (17-59) U/L ALT (4-49) U/L C-Reactive Protein (<1.0) mg/dL Total Protein 5.6 L (6.3-8.2) g/dL Albumin 2.9 L (3.5-5.0) g/dL Urine Protein (Negative) Urine Ketones (Negative) Urine Blood (Negative) Ur Leukocyte Esterase (Negative) Urine RBC (0-5) /hpf Urine WBC (0-5) /hpf Urine Bacteria (None) /hpf Urine Mucus (None) /hpf 02/14/22 02/15/22 02/15/22 Range/Units 22:04 00:02 05:48 RBC (4.30-5.90) m/uL Hgb (13.0-17.5) gm/dL Hct (39.0-53.0) % MCV (80.0-100.0) fL MCHC (31.0-37.0) g/dL Plt Count (150-450) k/uL Lymphocytes # (1.0-4.8) k/uL Lymphocytes # (Manual) (1.0-4.8) k/uL Macrocytosis Sodium (137-145) mmol/L Chloride (98-107) mmol/L Carbon Dioxide (22-30) mmol/L POC Glucose (mg/dL) 65 L 52 L (75-99) mg/dL Plasma Lactic Acid Keaton 2.1 H* (0.7-2.0) mmol/L Calcium (8.4-10.2) mg/dL AST (17-59) U/L ALT (4-49) U/L C-Reactive Protein (<1.0) mg/dL Total Protein (6.3-8.2) g/dL Albumin (3.5-5.0) g/dL Urine Protein (Negative) Urine Ketones (Negative) Urine Blood (Negative) Ur Leukocyte Esterase (Negative) Urine RBC (0-5) /hpf Urine WBC (0-5) /hpf Urine Bacteria (None) /hpf Urine Mucus (None) /hpf 02/15/22 02/15/22 02/15/22 Range/Units 06:09 06:23 07:11 RBC (4.30-5.90) m/uL Hgb (13.0-17.5) gm/dL Hct (39.0-53.0) % MCV (80.0-100.0) fL MCHC (31.0-37.0) g/dL Plt Count (150-450) k/uL Lymphocytes # (1.0-4.8) k/uL Lymphocytes # (Manual) (1.0-4.8) k/uL Macrocytosis Sodium (137-145) mmol/L Chloride 112 H (98-107) mmol/L Carbon Dioxide 20 L (22-30) mmol/L POC Glucose (mg/dL) 64 L 67 L (75-99) mg/dL Plasma Lactic Acid Keaton (0.7-2.0) mmol/L Calcium 8.3 L (8.4-10.2) mg/dL AST (17-59) U/L ALT 50 H (4-49) U/L C-Reactive Protein 19.2 H (<1.0) mg/dL Total Protein 5.5 L (6.3-8.2) g/dL Albumin 2.8 L (3.5-5.0) g/dL Urine Protein (Negative) Urine Ketones (Negative) Urine Blood (Negative) Ur Leukocyte Esterase (Negative) Urine RBC (0-5) /hpf Urine WBC (0-5) /hpf Urine Bacteria (None) /hpf Urine Mucus (None) /hpf 02/15/22 Range/Units 07:11 RBC 3.26 L (4.30-5.90) m/uL Hgb 11.0 L (13.0-17.5) gm/dL Hct 36.7 L (39.0-53.0) % MCV 112.5 H D (80.0-100.0) fL MCHC 30.0 L (31.0-37.0) g/dL Plt Count 139 L (150-450) k/uL Lymphocytes # 0.8 L (1.0-4.8) k/uL Lymphocytes # (Manual) (1.0-4.8) k/uL Macrocytosis Marked A Sodium (137-145) mmol/L Chloride (98-107) mmol/L Carbon Dioxide (22-30) mmol/L POC Glucose (mg/dL) (75-99) mg/dL Plasma Lactic Acid Keaton (0.7-2.0) mmol/L Calcium (8.4-10.2) mg/dL AST (17-59) U/L ALT (4-49) U/L C-Reactive Protein (<1.0) mg/dL Total Protein (6.3-8.2) g/dL Albumin (3.5-5.0) g/dL Urine Protein (Negative) Urine Ketones (Negative) Urine Blood (Negative) Ur Leukocyte Esterase (Negative) Urine RBC (0-5) /hpf Urine WBC (0-5) /hpf Urine Bacteria (None) /hpf Urine Mucus (None) /hpf Assessment and Plan Assessment: Impression: Sepsis and septic shock, most likely source is aspiration pneumonia Acute bilateral pneumonia, strongly suspect aspiration pneumonia 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 However his urinalysis is clean on this admission. Cultures are pending. History of nephrolithiasis. 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 Severe osteoporosis and recurrent bone fractures. Mentally impaired and blind History of colostomy. Recommendation: Continue to monitor in the ICU. Awaiting final cultures including blood cultures and urine cultures as well as sputum cultures Continue cefepime and vancomycin. Continue GI and DVT prophylaxis. Agree with modified barium swallow today. Keep patient off norepinephrine assuming his blood pressure remains stable. Consider transferring the patient out of the ICU to the regular medical floor in the next 24 hours. Resume his seizure medications as per neurology on the case. Continue aspiration precautions and seizure precautions. If the patient failed the swallow evaluation, may have to consider a PEG tube placement. CODE STATUS DO NOT RESUSCITATE Time with Patient: Less than 30
[2022-02-15] MEDS: polyethylene glycoL 3350 17 GM POWD.PACK PO SCH (11:39)
[2022-02-15] MEDS: POTASSIUM CHLORIDE ER 10 MEQ TAB.ER.PRT PO SCH (11:39)
[2022-02-15] MEDS: TAMSULOSIN 0.4 MG CAP.ER.24H PO SCH (11:39)
[2022-02-15] MEDS: LACTULOSE 20 GM/30 ML CUP PO SCH (11:39)
[2022-02-15 12:00] LABS: Glucose,Whole Blood 55 mg/dL (75-99)
[2022-02-15] MEDS ORDERED: DEXTROSE 50% SYRINGE 50 ML IVP ONE (12:00)
[2022-02-15] MEDS ORDERED: DEXTROSE 50% SYRINGE 50 ML IVP STA (12:07)
[2022-02-15 12:21] LABS: Glucose,Whole Blood 105 mg/dL (75-99)
[2022-02-15] MEDS: DEXTROSE 5%-0.9% NACL 1,000 ML IV SCH (12:58)
--- NOTE | 2022-02-15 13:22 | FL ---
EXAMINATION TYPE: FL barium swallow w video DATE OF EXAM: 02/15/2022 MODIFIED SWALLOW / DEGLUTITION STUDY CLINICAL HISTORY: Dysphagia. TECHNIQUE: Deglutition study is performed utilizing thin liquid barium, barium thick applesauce, and barium coated cracker. 1 min 27 seconds of fluoro time and 0 images obtained. COMPARISON: None. FINDINGS: Slightly suboptimal due to patient's underlying medical condition. The oral and pharyngeal phases show satisfactory initiation and propagation with all modalities tested. Satisfactory masticat ion is seen with solid modalities tested. There is no evidence of penetration or aspiration with any modality tested. No significant pharyngeal residue was appreciated. IMPRESSION: No penetration or aspiration observed. Please refer to speech therapist notes for furthe r details if necessary.
--- NOTE | 2022-02-15 15:12 | P.PN ---
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 Patient lives at [facility] in [place], and patient is mostl y wheelchair bound, bed bound, and since he was born the patient had many issues related to severe osteoporosis and recurrent left hip fractures, history of bowel issues requiring colostomy about a year and a half ago, history of recurrent urinary tract infections requiring multiple stent placements by Dr. 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 History of hypogonadism. History of obesity. And the patient has been seen in many institutions over the years including [facility], [facility], [facility], and most of the admissions were mostly related to recurrent infections. Few weeks ago, patient had stent placement by Dr. Johnson at [facility]. Apparently patient had multiple episodes of VRE urinary tract infections and has been frequently on antibiotics almost on a regular basis. Today the patient was noted to have altered mental status, fever, shortness of breath, and the staff at the [facility] sent the patient down to [facility] ER. His workup in the ER included a chest x-ray which was consistent with bilateral pneumonia right more so than left, his urinalysis was relatively unremarkable. Patient was febrile with a temp as high as 103, he was also hypotensive requiring fluid boluses, and required norepinephrine drip through a right femoral triple-lumen catheter that was placed by the ER physician at [facility]. Arrangements were made to transfer the patient to [facility], mother declined transfer to [facility] in [place]. I saw the patient in the ER, he is on 0.13 mcg/kg/m of norepinephrine, he already received antibiotics in the form of daptomycin and cefepime at [facility], I evaluated the patient, and recommended admission to the ICU. CODE STATUS has been discussed with the mother, and apparently the patient is DO NOT RESUSCITATE CODE STATUS at present February 15: ICU: Height to coordinate this patient from my colleague Dr. Ulrich. Patient doing better. Overnight patient was taken off levo fed. Patient is on room air. Telemetry shows sinus rhythm. Spoke to the father the bedside.: At baseline: Patient needs assistance with feeding. Is wheelchair bound. Has been in diapers. Poor eyesight. Patient did well with modified barium swallow this morning. Active Medications Acetaminophen (Acetaminophen Tab 325 Mg Tab) 650 mg PO Q4HR PRN PRN Reason: Fever and/or Mild Pain Last Admin: 02/14/22 22:50 Dose: 650 mg Documented by: Acetaminophen (Acetaminophen Tab 500 Mg Tab) 1,000 mg PO Q6HR PRN PRN Reason: Pain Atropine Sulfate (Atropine Ophth Soln 1% 5ml Btl) 1 drops LEFT EYE [facility] Last Admin: 02/14/22 21:30 Dose: 1 drops Documented by: Benzocaine (Benzocaine 20 % Gel 11.9 Gm Tube) 1 applic MM QID PRN PRN Reason: Pain Divalproex Sodium (Divalproex Er 250 Mg Tab.Er.24h) 250 mg PO [facility] Last Admin: 02/14/22 21:50 Dose: Not Given Documented by: Divalproex Sodium (Divalproex Er 500 Mg Tab.Er.24h) 1,000 mg PO [facility] Last Admin: 02/14/22 21:50 Dose: Not Given Documented by: Enoxaparin Sodium (Enoxaparin 40 Mg/0.4 Ml Syringe) 40 mg SQ DAILY [facility] Last Admin: 02/15/22 08:13 Dose: 40 mg Documented by: Ergocalciferol (Ergocalciferol 1,250 Mcg (50,000 Iu) Capsule) 1,250 mcg PO [facility] Last Admin: 02/14/22 20:35 Dose: Not Given Documented by: Folic Acid (Folic Acid 1 Mg Tab) 1 mg PO [facility] Last Admin: 02/14/22 21:35 Dose: 1 mg Documented by: Glucose (Dextrose 4 Gm Chewable) 4 gm PO Q1H PRN PRN Reason: Blood Sugar - Low Last Admin: 02/15/22 05:50 Dose: 4 gm Documented by: Cefepime HCl 2 gm/ Sodium (Chloride) 100 mls @ 25 mls/hr IVPB Q8HR [facility]; Protocol Last Admin: 02/15/22 08:12 Dose: 25 mls/hr Documented by: Norepinephrine Bitartrate 32 (mg/ Sodium Chloride) 250 mls @ 4.088 mls/hr IV .Q24H [facility]; Protocol Last Titration: 02/14/22 22:20 Dose: 0 mcg/kg/min, 0 mls/hr Documented by: Sodium Chloride (Saline 0.9%) 1,000 mls @ 65 mls/hr IV .[id number] [facility] Last Admin: 02/15/22 04:04 Dose: 130 mls/hr Documented by: Vancomycin HCl 1,500 mg/ (Sodium Chloride) 250 mls @ 125 mls/hr IVPB Q12H [facility] Last Admin: 02/15/22 04:03 Dose: 125 mls/hr Documented by: Dextrose/Sodium Chloride (Dextrose 5%-Ns Iv Soln) 1,000 mls @ 65 mls/hr IV .[id number] [facility] Last Admin: 02/15/22 12:58 Dose: 65 mls/hr Documented by: Lactulose (Lactulose 20 Gm/30 Ml Cup) 20 gm PO DAILY [facility] Last Admin: 02/15/22 11:39 Dose: Not Given Documented by: Lamotrigine (Lamotrigine 25 Mg Tab) 25 mg PO BID [facility] Last Admin: 02/15/22 08:14 Dose: 25 mg Documented by: Lamotrigine (Lamotrigine 100 Mg Tab) 200 mg PO BID [facility] Last Admin: 02/15/22 08:14 Dose: 200 mg Documented by: Levothyroxine Sodium (Levothyroxine 75 Mcg Tab) 75 mcg PO 0630 [facility] Last Admin: 02/15/22 06:18 Dose: 75 mcg Documented by: Lorazepam (Lorazepam 1 Mg Tab) 1 mg PO BID PRN PRN Reason: SEIZURE Magnesium Hydroxide (Magnesium Hydroxide 2,400 Mg/10 Ml Cup) 2,400 mg PO [facility] Last Admin: 02/14/22 21:32 Dose: Not Given Documented by: Miscellaneous Information (Vancomycin Trough Due 1 Each Misc) 0 each MISCELLANE DIRECTED ONE Stop: 02/16/22 15:01 Naloxone HCl (Naloxone 0.4 Mg/Ml 1 Ml Vial) 0.2 mg IV Q2M PRN PRN Reason: Opioid Reversal Patient's Own ( Brivaracetam [ Briviact] 25 Mg Tablet) 25 mg PO [facility] Last Admin: 02/14/22 21:31 Dose: Not Given Documented by: Patient's Own ( Brivaracetam [ Briviact] 50 Mg Tablet) 50 mg PO [facility] Last Admin: 02/14/22 21:31 Dose: Not Given Documented by: Patient's Own ( Cenobamate [Xcopri] 200 Mg Tablet) 200 mg PO [facility] Last Admin: 02/14/22 21:31 Dose: Not Given Documented by: Patient's Own ( Oxcarbazepine [ Oxtellar Xr] 600 Mg Tablet) 1,200 mg PO [facility] Last Admin: 02/14/22 21:32 Dose: Not Given Documented by: Pantoprazole Sodium (Pantoprazole 40 Mg/10 Ml Vial) 40 mg IVP DAILY [facility] Last Admin: 02/15/22 08:13 Dose: 40 mg Documented by: Polyethylene Glycol (Polyethylene Glycol 3350 17 Gm Powd.Pack) 17 gm PO DAILY [facility] Last Admin: 02/15/22 11:39 Dose: Not Given Documented by: Potassium Chloride (Potassium Chloride Er 10 Meq Tab.Er.Prt) 10 meq PO DAILY [facility] Last Admin: 02/15/22 11:39 Dose: Not Given Documented by: Prednisolone Acetate (Prednisolone Acetate 1% Ophth Drops 5 Ml Btl) 1 drops LEFT EYE QID [facility] Last Admin: 02/15/22 13:40 Dose: Not Given Documented by: Risperidone (Risperidone 2 Mg Tab) 2 mg PO [facility] Last Admin: 02/14/22 21:36 Dose: 2 mg Documented by: Risperidone (Risperidone 2 Mg Tab) 4 mg PO DAILY [facility] Last Admin: 02/15/22 08:14 Dose: 4 mg Documented by: Senna (Sennosides 8.6 Mg Tab) 17.2 mg PO [facility] Last Admin: 02/14/22 21:36 Dose: 17.2 mg Documented by: Sertraline HCl (Sertraline 100 Mg Tab) 100 mg PO DAILY [facility] Last Admin: 02/15/22 08:14 Dose: 100 mg Documented by: Sodium Bicarbonate (Sodium Bicarbonate Tab 650 Mg Tab) 650 mg PO TID [facility] Last Admin: 02/15/22 08:14 Dose: 650 mg Documented by: Tamsulosin HCl (Tamsulosin 0.4 Mg Cap.Er.24h) 0.4 mg PO DAILY [facility] Last Admin: 02/15/22 11:39 Dose: Not Given Documented by: Zonisamide (Zonisamide 100 Mg Cap) 100 mg PO DAILY [facility] Last Admin: 02/15/22 08:14 Dose: 100 mg Documented by: On examination: VITAL SIGNS: [98.3, 89, 27, 102/68, 95% room air] GENERAL APPEARANCE: Sitting up in bed, awake, not in distress HEENT: Normal external appearance of nose and ear. Oral cavity normal EYES: Poor eyesight NECK: JVD not raised. Mass not palpable. RESPIRATORY: Respiratory effort increased. Decreased breath sounds CARDIOVASCULAR: First and second sounds normal. No edema. ABDOMEN: Soft. Liver and spleen not palpable. No tenderness. No mass palpable. PSYCHIATRY: Able to answer some simple questions. INVESTIGATIONS, reviewed in the clinical context: February 15: White count 5.7 hemoglobin 11 platelets 139 sodium 138 potassium 3.7 creatinine 0.77 Modified barium swallow: No aspiration Chest x-ray: Infiltrates Assessment and plan: : -Sepsis and septic shock, most likely source is aspiration pneumonia IV fluids. Antibiotics. 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 However his urinalysis is clean on this admission. Cultures are pending. -nephrolithiasis. 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 Depakote, Lamictal, Zonegran -Severe osteoporosis and recurrent bone fractures. -Mentally impaired and blind -Chronic colostomy. -Chronic medical debility. Baseline on a wheelchair -Chronic visual impairment -Anxiety depression otherwise specified Depakote Patient passed a modified barium swallow. Patient on IV cefepime. Vancomycin. Taken off levo fed. Diet is being advanced. Spoke to patient's father the bedside.
[2022-02-15] MEDS: NOREPINEPHRINE 32 MG in SODIUM CHLORIDE 0.9% 218 ML IV SCH (17:13)
[2022-02-15 18:20] LABS: Glucose,Whole Blood 79 mg/dL (75-99)
[2022-02-15] MEDS: DIVALPROEX ER 250 MG TAB.ER.24H PO SCH (20:42)
[2022-02-15] MEDS: ATROPINE OPHTH SOLN 1% 5ML BTL LEFT EYE SCH (20:42)
[2022-02-15] MEDS: SENNOSIDES 8.6 MG TAB PO SCH (20:43)
[2022-02-15] MEDS: DIVALPROEX ER 500 MG TAB.ER.24H PO SCH (20:43)
[2022-02-15] MEDS: FOLIC ACID 1 MG TAB PO SCH (20:43)
[2022-02-15] MEDS: MAGNESIUM HYDROXIDE 2,400 MG/10 ML CUP PO SCH (20:43)
[2022-02-15] MEDS: BRIVARACETAM 25 MG PO SCH (20:44)
[2022-02-15] MEDS: CENOBAMATE 200 MG PO SCH (20:47)
[2022-02-15] MEDS: OXCARBAZEPINE 600 MG PO SCH (20:47)
[2022-02-15] MEDS: BRIVARACETAM 50 MG PO SCH (20:47)
--- NOTE | 2022-02-15 21:22 | P.PN ---
Subjective Progress Note Date: 02/15/22 Principal diagnosis: Sepsis/pneumonia Patient is a 56-year-old male transferred from [facility] with concern for sepsis from possible pneumonia in this patient who did have history of renal stone and recurrent UTI with recent ureteral stent placement. On today's evaluation that is 02/15/2022, the patient did spike a fever last evening however is afebrile this morning, patient is hemodynamically stable and is breathing comfortably on room air no vomiting or diarrhea has been reported patient himself is not a very good historian Objective - Vital Signs Vital signs: Vital Signs Temp 98.3 F 02/15/22 08:00 Pulse 89 02/15/22 12:00 Resp 27 H 02/15/22 12:00 BP 102/68 02/15/22 12:00 Pulse Ox 95 02/15/22 12:00 Intake & Output 02/14/22 02/15/22 02/15/22 18:59 06:59 18:59 Intake Total 047.972 3009.090 905 Output Total 180 375 260 Balance 578.132 3253.090 645 Weight 87.2 kg 90.8 kg Intake: IV 1780 905 Cefepime 2 gm In Sodium 100 125 Chloride 0.9% 100 ml @ 25 mls/hr IVPB Q8HR [facility] Rx# :[id number] Sodium Chloride 0.9% 1, 1430 780 000 ml @ 130 mls/hr IV . Q7H42M [facility] Rx#:[id number] Vancomycin 1,500 mg In 250 Sodium Chloride 0.9% 250 ml @ 125 mls/hr IVPB Q12H [facility] Rx#:[id number] Intake, IV Titration 520.409 168.090 Amount Norepinephrine 32 mg In 0.409 38.090 Sodium Chloride 0.9% 218 ml @ 0.1 MCG/KG/MIN 4.088 mls/hr IV .Q24H [facility] Rx#: [id number] Sodium Chloride 0.9% 1, 520 130 000 ml @ 130 mls/hr IV . Q7H42M [facility] Rx#:[id number] Output: Urine 180 375 260 Other: Voiding Method Indwelling Catheter Indwelling Catheter Indwelling Catheter # Bowel Movements 1 - Exam GENERAL DESCRIPTION: Middle-age male lying in bed in no distress RESPIRATORY SYSTEM: Unlabored breathing , decreased breath sounds at bases HEART: S1 S2 regular rate and rhythm , ABDOMEN: Soft , no tenderness EXTREMITIES: No edema feet - Labs CBC & Chem 7: 02/15/22 07:11 02/15/22 07:11 Labs: Abnormal Lab Results - Last 24 Hours (Table) 02/14/22 02/14/22 02/14/22 Range/Units 13:16 13:16 14:00 RBC 3.66 L (4.30-5.90) m/uL Hgb 12.5 L (13.0-17.5) gm/dL Hct 38.3 L (39.0-53.0) % MCV 104.9 H (80.0-100.0) fL MCHC (31.0-37.0) g/dL Plt Count (150-450) k/uL Lymphocytes # (1.0-4.8) k/uL Lymphocytes # (Manual) 0.80 L (1.0-4.8) k/uL Macrocytosis Sodium (137-145) mmol/L Chloride (98-107) mmol/L Carbon Dioxide (22-30) mmol/L POC Glucose (mg/dL) (75-99) mg/dL Plasma Lactic Acid Keaton 2.4 H* (0.7-2.0) mmol/L Calcium (8.4-10.2) mg/dL AST (17-59) U/L ALT (4-49) U/L C-Reactive Protein (<1.0) mg/dL Total Protein (6.3-8.2) g/dL Albumin (3.5-5.0) g/dL Urine Protein 1+ H (Negative) Urine Ketones Trace H (Negative) Urine Blood Moderate H (Negative) Ur Leukocyte Esterase Moderate H (Negative) Urine RBC 48 H (0-5) /hpf Urine WBC 27 H (0-5) /hpf Urine Bacteria Rare H (None) /hpf Urine Mucus Moderate H (None) /hpf 02/14/22 02/14/22 02/14/22 Range/Units 14:00 16:27 19:06 RBC (4.30-5.90) m/uL Hgb (13.0-17.5) gm/dL Hct (39.0-53.0) % MCV (80.0-100.0) fL MCHC (31.0-37.0) g/dL Plt Count (150-450) k/uL Lymphocytes # (1.0-4.8) k/uL Lymphocytes # (Manual) (1.0-4.8) k/uL Macrocytosis Sodium 136 L (137-145) mmol/L Chloride 110 H (98-107) mmol/L Carbon Dioxide 20 L (22-30) mmol/L POC Glucose (mg/dL) (75-99) mg/dL Plasma Lactic Acid Keaton 2.5 H* 2.5 H* (0.7-2.0) mmol/L Calcium (8.4-10.2) mg/dL AST 77 H (17-59) U/L ALT (4-49) U/L C-Reactive Protein (<1.0) mg/dL Total Protein 5.6 L (6.3-8.2) g/dL Albumin 2.9 L (3.5-5.0) g/dL Urine Protein (Negative) Urine Ketones (Negative) Urine Blood (Negative) Ur Leukocyte Esterase (Negative) Urine RBC (0-5) /hpf Urine WBC (0-5) /hpf Urine Bacteria (None) /hpf Urine Mucus (None) /hpf 02/14/22 02/15/22 02/15/22 Range/Units 22:04 00:02 05:48 RBC (4.30-5.90) m/uL Hgb (13.0-17.5) gm/dL Hct (39.0-53.0) % MCV (80.0-100.0) fL MCHC (31.0-37.0) g/dL Plt Count (150-450) k/uL Lymphocytes # (1.0-4.8) k/uL Lymphocytes # (Manual) (1.0-4.8) k/uL Macrocytosis Sodium (137-145) mmol/L Chloride (98-107) mmol/L Carbon Dioxide (22-30) mmol/L POC Glucose (mg/dL) 65 L 52 L (75-99) mg/dL Plasma Lactic Acid Keaton 2.1 H* (0.7-2.0) mmol/L Calcium (8.4-10.2) mg/dL AST (17-59) U/L ALT (4-49) U/L C-Reactive Protein (<1.0) mg/dL Total Protein (6.3-8.2) g/dL Albumin (3.5-5.0) g/dL Urine Protein (Negative) Urine Ketones (Negative) Urine Blood (Negative) Ur Leukocyte Esterase (Negative) Urine RBC (0-5) /hpf Urine WBC (0-5) /hpf Urine Bacteria (None) /hpf Urine Mucus (None) /hpf 02/15/22 02/15/22 02/15/22 Range/Units 06:09 06:23 07:11 RBC (4.30-5.90) m/uL Hgb (13.0-17.5) gm/dL Hct (39.0-53.0) % MCV (80.0-100.0) fL MCHC (31.0-37.0) g/dL Plt Count (150-450) k/uL Lymphocytes # (1.0-4.8) k/uL Lymphocytes # (Manual) (1.0-4.8) k/uL Macrocytosis Sodium (137-145) mmol/L Chloride 112 H (98-107) mmol/L Carbon Dioxide 20 L (22-30) mmol/L POC Glucose (mg/dL) 64 L 67 L (75-99) mg/dL Plasma Lactic Acid Keaton (0.7-2.0) mmol/L Calcium 8.3 L (8.4-10.2) mg/dL AST (17-59) U/L ALT 50 H (4-49) U/L C-Reactive Protein 19.2 H (<1.0) mg/dL Total Protein 5.5 L (6.3-8.2) g/dL Albumin 2.8 L (3.5-5.0) g/dL Urine Protein (Negative) Urine Ketones (Negative) Urine Blood (Negative) Ur Leukocyte Esterase (Negative) Urine RBC (0-5) /hpf Urine WBC (0-5) /hpf Urine Bacteria (None) /hpf Urine Mucus (None) /hpf 02/15/22 02/15/22 Range/Units 07:11 11:59 RBC 3.26 L (4.30-5.90) m/uL Hgb 11.0 L (13.0-17.5) gm/dL Hct 36.7 L (39.0-53.0) % MCV 112.5 H D (80.0-100.0) fL MCHC 30.0 L (31.0-37.0) g/dL Plt Count 139 L (150-450) k/uL Lymphocytes # 0.8 L (1.0-4.8) k/uL Lymphocytes # (Manual) (1.0-4.8) k/uL Macrocytosis Marked A Sodium (137-145) mmol/L Chloride (98-107) mmol/L Carbon Dioxide (22-30) mmol/L POC Glucose (mg/dL) 55 L (75-99) mg/dL Plasma Lactic Acid Keaton (0.7-2.0) mmol/L Calcium (8.4-10.2) mg/dL AST (17-59) U/L ALT (4-49) U/L C-Reactive Protein (<1.0) mg/dL Total Protein (6.3-8.2) g/dL Albumin (3.5-5.0) g/dL Urine Protein (Negative) Urine Ketones (Negative) Urine Blood (Negative) Ur Leukocyte Esterase (Negative) Urine RBC (0-5) /hpf Urine WBC (0-5) /hpf Urine Bacteria (None) /hpf Urine Mucus (None) /hpf Assessment and Plan (1) Bilateral pneumonia Current Visit: Yes Status: Acute Code(s): J18.9 - PNEUMONIA, UNSPECIFIED ORGANISM SNOMED Code(s): 000797501 Plan: 1patient presented hospital with sepsis in this patient did have a fever elevated lactic acid tachycardia concerning for right lower lobe pneumonia in this patient who has been out of the hospital concerning for possible resistant gram-positive or gram-negative pathogen. 2we will try to obtain a sputum for gram stain and culture. 3patient to continue with cefepime 2 g every 8 hours and vancomycin pharmacy to dose target trough of 15 while watching kidney function and vancomycin trough closely. Time with Patient: Less than 30
[2022-02-15 23:45] LABS: Glucose,Whole Blood 65 mg/dL (75-99)
[2022-02-15 23:45] LABS: Glucose,Whole Blood 72 mg/dL (75-99)
[2022-02-16] MEDS: DEXTROSE 5%-0.9% NACL 1,000 ML IV SCH ×2 (04:05→10:16)
[2022-02-16] MEDS: VANCOMYCIN 1,500 MG in SODIUM CHLORIDE 0.9% 250 ML IVPB SCH ×2 (04:06→15:33)
[2022-02-16] MEDS: SODIUM CHLORIDE 0.9% 1,000 ML IV SCH ×2 (04:06→22:47)
[2022-02-16 04:11] LABS: Glucose,Whole Blood 110 mg/dL (75-99)
[2022-02-16 05:49] LABS: Glucose,Whole Blood 93 mg/dL (75-99)
[2022-02-16] MEDS: LEVOTHYROXINE 75 MCG TAB PO SCH (06:22)
[2022-02-16 07:22] LABS: HCT 33.8 % (39.0-53.0); HGB 10.5 gm/dL (13.0-17.5); Hypochromasia Moderate; MCH 34.1 pg (25.0-35.0); MCHC 31.2 g/dL (31.0-37.0); MCV 109.4 fL (80.0-100.0); Macrocytosis Marked; Mean Platelet Volume 7.6; Platelet Count 109 k/uL (150-450); RBC 3.09 m/uL (4.30-5.90); RDW 13.5 % (11.5-15.5); WBC 5.1 k/uL (3.8-10.6)
[2022-02-16 07:42] LABS: African American GFR (CKD) >90 (>60 ml/min/1.73 sqM); Anion Gap 6 mmol/L; Blood Urea Nitrogen 11 mg/dL (9-20); Calcium 8.3 mg/dL (8.4-10.2); Carbon Dioxide 17 mmol/L (22-30); Chloride 115 mmol/L (98-107); Glucose 94 mg/dL (74-99); Non-African American GFR(CKD) >90 (>60 ml/min/1.73 sqM); Potassium 3.9 mmol/L (3.5-5.1); Sodium 138 mmol/L (137-145)
[2022-02-16] MEDS: lamoTRIgine 25 MG TAB PO SCH ×2 (08:01→20:26)
[2022-02-16] MEDS: CEFEPIME 2 GM in SODIUM CHLORIDE 0.9% 100 ML IVPB SCH ×3 (08:01→23:20)
[2022-02-16] MEDS: ENOXAPARIN 40 MG/0.4 ML SYRINGE SQ SCH (08:01)
[2022-02-16] MEDS: PANTOPRAZOLE 40 MG/10 ML VIAL IVP SCH (08:01)
[2022-02-16] MEDS: SERTRALINE 100 MG TAB PO SCH (08:02)
[2022-02-16] MEDS: SODIUM BICARBONATE TAB 650 MG TAB PO SCH ×3 (08:02→20:19)
[2022-02-16] MEDS: POTASSIUM CHLORIDE ER 10 MEQ TAB.ER.PRT PO SCH (08:02)
[2022-02-16] MEDS: lamoTRIgine 100 MG TAB PO SCH ×2 (08:02→20:19)
[2022-02-16] MEDS: ZONISAMIDE 100 MG CAP PO SCH (08:02)
[2022-02-16] MEDS: risperiDONE 2 MG TAB PO SCH ×2 (08:02→20:20)
[2022-02-16] MEDS: TAMSULOSIN 0.4 MG CAP.ER.24H PO SCH (08:02)
[2022-02-16] MEDS: prednisoLONE ACETATE 1% OPHTH DROPS 5 ML BTL LEFT EYE SCH ×4 (08:03→20:22)
--- NOTE | 2022-02-16 08:03 | XR ---
EXAMINATION TYPE: XR chest 1V portable DATE OF EXAM: 02/16/2022 COMPARISON: Chest x-ray 02/15/2022 HISTORY: Pneumonia TECHNIQUE: Single frontal view of the chest is obtained. FINDINGS: Lung volumes are low and the patient is rotated. There are overlying leads. Cardiac medias tinal silhouette is likely stable accounting for differences in technique. No evident pneumothorax or pleural effusion. Patchy airspace disease is thought to persist. IMPRESSION: Correlate for pneumonia, exam is expiratory and rotated, follow-up
[2022-02-16] MEDS: LACTULOSE 20 GM/30 ML CUP PO SCH (09:15)
[2022-02-16] MEDS: polyethylene glycoL 3350 17 GM POWD.PACK PO SCH (09:15)
--- NOTE | 2022-02-16 09:17 | P.PN ---
Subjective Progress Note Date: 02/15/22 Patient was seen for a follow-up. Patient's another sister was present today. No further seizures noted. Patient has improved significantly as per patient's sister. No new concerns. Objective - Vital Signs Vital signs: Vital Signs Temp 98.4 F 02/15/22 16:00 Pulse 79 02/15/22 19:00 Resp 31 H 02/15/22 19:00 BP 96/65 02/15/22 19:00 Pulse Ox 98 02/15/22 19:00 Intake & Output 02/15/22 02/15/22 02/16/22 06:59 18:59 06:59 Intake Total 3194.522 3186 130 Output Total 375 525 45 Balance 1849.671 0063 85 Weight 90.8 kg Intake: IV 1780 1685 130 Cefepime 2 gm In Sodium 100 125 Chloride 0.9% 100 ml @ 25 mls/hr IVPB Q8HR [facility] Rx# :[id number] Dextrose 5%-0.9% NaCl 1, 390 65 000 ml @ 65 mls/hr IV . [id number] [facility] Rx#:[id number] Sodium Chloride 0.9% 1, 1430 1170 65 000 ml @ 65 mls/hr IV . [id number] [facility] Rx#:[id number] Vancomycin 1,500 mg In 250 Sodium Chloride 0.9% 250 ml @ 125 mls/hr IVPB Q12H [facility] Rx#:[id number] Intake, IV Titration 168.090 Amount Norepinephrine 32 mg In 38.090 Sodium Chloride 0.9% 218 ml @ 0.1 MCG/KG/MIN 4.088 mls/hr IV .Q24H [facility] Rx#: [id number] Sodium Chloride 0.9% 1, 130 000 ml @ 65 mls/hr IV . [id number] [facility] Rx#:[id number] Output: Urine 375 525 45 Other: Voiding Method Indwelling Catheter Indwelling Catheter # Bowel Movements 1 - Exam Patient is alert and awake. He is trying to vocalize, speech is slightly more clear. Rest of the examination is unchanged. - Labs CBC & Chem 7: 02/16/22 07:06 02/16/22 07:06 Labs: Abnormal Lab Results - Last 24 Hours (Table) 02/14/22 02/14/22 02/15/22 Range/Units 19:06 22:04 00:02 RBC (4.30-5.90) m/uL Hgb (13.0-17.5) gm/dL Hct (39.0-53.0) % MCV (80.0-100.0) fL MCHC (31.0-37.0) g/dL Plt Count (150-450) k/uL Lymphocytes # (1.0-4.8) k/uL Macrocytosis Chloride (98-107) mmol/L Carbon Dioxide (22-30) mmol/L POC Glucose (mg/dL) 65 L (75-99) mg/dL Plasma Lactic Acid Keaton 2.5 H* 2.1 H* (0.7-2.0) mmol/L Calcium (8.4-10.2) mg/dL ALT (4-49) U/L C-Reactive Protein (<1.0) mg/dL Total Protein (6.3-8.2) g/dL Albumin (3.5-5.0) g/dL Procalcitonin (0.02-0.09) ng/mL 02/15/22 02/15/22 02/15/22 Range/Units 05:48 06:09 06:23 RBC (4.30-5.90) m/uL Hgb (13.0-17.5) gm/dL Hct (39.0-53.0) % MCV (80.0-100.0) fL MCHC (31.0-37.0) g/dL Plt Count (150-450) k/uL Lymphocytes # (1.0-4.8) k/uL Macrocytosis Chloride (98-107) mmol/L Carbon Dioxide (22-30) mmol/L POC Glucose (mg/dL) 52 L 64 L 67 L (75-99) mg/dL Plasma Lactic Acid Keaton (0.7-2.0) mmol/L Calcium (8.4-10.2) mg/dL ALT (4-49) U/L C-Reactive Protein (<1.0) mg/dL Total Protein (6.3-8.2) g/dL Albumin (3.5-5.0) g/dL Procalcitonin (0.02-0.09) ng/mL 05/03/0402/15/22 02/15/22 Range/Units 07:11 07:11 07:11 RBC 3.26 L (4.30-5.90) m/uL Hgb 11.0 L (13.0-17.5) gm/dL Hct 36.7 L (39.0-53.0) % MCV 112.5 H D (80.0-100.0) fL MCHC 30.0 L (31.0-37.0) g/dL Plt Count 139 L (150-450) k/uL Lymphocytes # 0.8 L (1.0-4.8) k/uL Macrocytosis Marked A Chloride 112 H (98-107) mmol/L Carbon Dioxide 20 L (22-30) mmol/L POC Glucose (mg/dL) (75-99) mg/dL Plasma Lactic Acid Keaton (0.7-2.0) mmol/L Calcium 8.3 L (8.4-10.2) mg/dL ALT 50 H (4-49) U/L C-Reactive Protein 19.2 H (<1.0) mg/dL Total Protein 5.5 L (6.3-8.2) g/dL Albumin 2.8 L (3.5-5.0) g/dL Procalcitonin 6.62 H (0.02-0.09) ng/mL 02/15/22 02/15/22 Range/Units 11:59 12:20 RBC (4.30-5.90) m/uL Hgb (13.0-17.5) gm/dL Hct (39.0-53.0) % MCV (80.0-100.0) fL MCHC (31.0-37.0) g/dL Plt Count (150-450) k/uL Lymphocytes # (1.0-4.8) k/uL Macrocytosis Chloride (98-107) mmol/L Carbon Dioxide (22-30) mmol/L POC Glucose (mg/dL) 55 L 105 H (75-99) mg/dL Plasma Lactic Acid Keaton (0.7-2.0) mmol/L Calcium (8.4-10.2) mg/dL ALT (4-49) U/L C-Reactive Protein (<1.0) mg/dL Total Protein (6.3-8.2) g/dL Albumin (3.5-5.0) g/dL Procalcitonin (0.02-0.09) ng/mL Microbiology - Last 24 Hours (Table) 02/14/22 13:17 Blood Culture - Preliminary Blood No Growth after 24 hours 02/14/22 13:00 Blood Culture - Preliminary Blood No Growth after 24 hours Assessment and Plan Assessment: * 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 Patient admitted however for bilateral pneumonia and sepsis * Mentally challenged, legally blind, wheelchair dependent status * History of recurrent UTI * History of recurrent nephrolithiasis * History of multiple hip fractures. * Probable underlying osteoporosis. * DO NOT RESUSCITATE status Plan: * Patient appears to be on fairly high dose of multiple antiepileptic medications, however the levels are therapeutic as mentioned below. * Patient is on Lamictal 225 mg twice a day, Trileptal (Oxtellar XR 1200 mg daily), Depakote 1250 mg at bedtime, Briviact 75 mg at bedtime and most recently started on Xcopri (Cenobamate) 200 mg at bedtime. These medications have been resumed in the hospital. * According to the notes from Dr. Medina, patient is being weaned off Zonegran 100 mg capsules. He will be off Zonegran on 02/18/2022. * All antiepileptic medication levels are therapeutic, with Lamictal 9.3(2-15), Depakote 53.7 (50-100) and Trileptal 12.7(10-35). * No other neurological workup indicated. Continue present dose of AEDs. * Patient to follow up with his neurologist after discharge. * Medical management as per IM/critical care. Please call neurology if any other concerns.
[2022-02-16 11:20] LABS: Glucose,Whole Blood 100 mg/dL (75-99)
--- NOTE | 2022-02-16 11:29 | P.PN ---
Subjective Progress Note Date: 02/16/22 Principal diagnosis: Aspiration pneumonia, sepsis, septic shock This is a 56-year-old white male with history of [place] gestaut/LGS syndrome,, patient had 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 Patient lives at [facility] in [place], and patient is mostly wheelchair bound, bed bound, and since he was born the patient had many issues related to severe osteoporosis and recurrent left hip fractures, history of bowel issues requiring colostomy about a year and a half ago, history of recurrent urinary tract infections requiring multiple stent placements by Dr. 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 History of hypogonadism. History of obesity. And the patient has been seen in many institutions over the years including [facility], [facility], [facility], and most of the admissions were mostly related to recurrent infections. Few weeks ago, patient had stent placement by Dr. Johnson at [facility]. Apparently patient had multiple epis odes of VRE urinary tract infections and has been frequently on antibiotics almost on a regular basis. Today the patient was noted to have altered mental status, fever, shortness of breath, and the staff at the [facility] sent the patient down to [facility] ER. His workup in the ER included a chest x-ray which was consistent with bilateral pneumonia right more so than left, his urinalysis was relatively unremarkable. Patient was febrile with a temp as high as 103, he was also hypotensive requiring fluid boluses, and required norepinephrine drip through a right femoral triple-lumen catheter that was placed by the ER physician at [facility]. Arrangements were made to transfer the patient to [facility], mother declined transfer to [facility] in [place]. I saw the patient in the ER, he is on 0.13 mcg/kg/m of norepinephrine, he already received antibiotics in the form of daptomycin and cefepime at [facility], I evaluated the patient, and recommended admission to the ICU. CODE STATUS has been discussed with the mother, and apparently the patient is DO NOT RESUSCITATE CODE STATUS at present Patient was reevaluated today on 02/15/2022, patient remains in the ICU, he is actually doing quite well better than expected, he is on room air, remains on vancomycin and cefepime, he is off norepinephrine, and he seems to be hemodynamically stable. Patient is having a barium swallow evaluation today. Remains on IV fluids at 1 30 mL per hour. Blood cultures and urine cultures are pending. Patient is being followed by many consultants including neurology and infectious disease. WBC count is 5.7 hemoglobin is 11 was are normal renal profile is normal Reevaluated today on 02/16/2022, patient remains in the ICU, has been off norepinephrine, patient is hemodynamically stable, remains on antibiotics including vancomycin and cefepime, no hemodynamic instability noted in the last 24 hours, chest x-ray is showing improvement in his pneumonia, cultures are pending, blood cultures are negative so far. Urine culture is pending so far. Labs today are unremarkable WBC count is 5.1 hemoglobin is 10.5 electrolytes are normal bicarb remains a bit low at 17. However the patient does not have anion gap acidosis. Objective - Vital Signs Vital signs: Vital Signs Temp 97.6 F 02/16/22 08:00 Pulse 57 L 02/16/22 10:00 Resp 22 02/16/22 10:00 BP 99/61 02/16/22 10:00 Pulse Ox 97 02/16/22 10:00 Intake & Output 02/15/22 02/16/22 02/16/22 18:59 06:59 18:59 Intake Total 1685 1810 390 Output Total 525 735 215 Balance 1160 1075 175 Weight 92.3 kg Intake: IV 1685 1810 390 Cefepime 2 gm In Sodium 125 Chloride 0.9% 100 ml @ 25 mls/hr IVPB Q8HR [facility] Rx# :[id number] Dextrose 5%-0.9% NaCl 1, 390 1025 230 000 ml @ 65 mls/hr IV . [id number] [facility] Rx#:[id number] Sodium Chloride 0.9% 1, 1170 535 160 000 ml @ 65 mls/hr IV . [id number] [facility] Rx#:[id number] Vancomycin 1,500 mg In 250 Sodium Chloride 0.9% 250 ml @ 125 mls/hr IVPB Q12H [facility] Rx#:[id number] Output: Urine 525 535 215 Stool 200 Other: Voiding Method Indwelling Catheter Indwelling Catheter Indwelling Catheter # Bowel Movements 1 1 - Exam Physical Exam: Revealed a 56-year-old white male obese, blind, confused, not in distress, patient is on room air. Head: Atraumatic, normocephalic. Eyes: Bilateral eye blindness no icterus. No discharge. Neck supple, no tracheal deviation, no stridor. Throat dry mucous membranes otherwise negative. Chest: Symmetrical chest expansion, minimal crackles at the bases. No wheezes. Cardiac Exam: Normal S1 and S2, no S3. Abdomen: [Obese, Soft, nontender, no megaly, no rebound, no guarding, normal bowel sounds.] Left sided colostomy is noted. Functional Extremities: [No clubbing, no edema, no cyanosis.] Muscle wasting noted bilaterally in both lower extremities. Good pulses bilaterally. Neurological Exam : does not follow any instructions, confused, generally weak. Psychiatric: Could not be assessed. - Labs CBC & Chem 7: 02/16/22 07:06 02/16/22 07:06 Labs: Abnormal Lab Results - Last 24 Hours (Table) 02/15/22 02/15/22 02/15/22 Range/Units 07:11 11:59 12:20 RBC (4.30-5.90) m/uL Hgb (13.0-17.5) gm/dL Hct (39.0-53.0) % MCV (80.0-100.0) fL Plt Count (150-450) k/uL Macrocytosis Chloride (98-107) mmol/L Carbon Dioxide (22-30) mmol/L Creatinine (0.66-1.25) mg/dL POC Glucose (mg/dL) 55 L 105 H (75-99) mg/dL Calcium (8.4-10.2) mg/dL Procalcitonin 6.62 H (0.02-0.09) ng/mL 02/15/22 02/15/22 02/16/22 Range/Units 23:29 23:43 04:10 RBC (4.30-5.90) m/uL Hgb (13.0-17.5) gm/dL Hct (39.0-53.0) % MCV (80.0-100.0) fL Plt Count (150-450) k/uL Macrocytosis Chloride (98-107) mmol/L Carbon Dioxide (22-30) mmol/L Creatinine (0.66-1.25) mg/dL POC Glucose (mg/dL) 65 L 72 L 110 H (75-99) mg/dL Calcium (8.4-10.2) mg/dL Procalcitonin (0.02-0.09) ng/mL 02/16/22 02/16/22 02/16/22 Range/Units 07:06 07:06 11:19 RBC 3.09 L (4.30-5.90) m/uL Hgb 10.5 L (13.0-17.5) gm/dL Hct 33.8 L (39.0-53.0) % MCV 109.4 H (80.0-100.0) fL Plt Count 109 L (150-450) k/uL Macrocytosis Marked A Chloride 115 H (98-107) mmol/L Carbon Dioxide 17 L (22-30) mmol/L Creatinine 0.58 L (0.66-1.25) mg/dL POC Glucose (mg/dL) 100 H (75-99) mg/dL Calcium 8.3 L (8.4-10.2) mg/dL Procalcitonin (0.02-0.09) ng/mL Microbiology - Last 24 Hours (Table) 02/14/22 13:16 Urine Culture - Preliminary Urine,Clean Catch 02/14/22 13:17 Blood Culture - Preliminary Blood No Growth after 24 hours 02/14/22 13:00 Blood Culture - Preliminary Blood No Growth after 24 hours Assessment and Plan Assessment: Impression: Sepsis and septic shock, most likely source is aspiration pneumonia Acute bilateral pneumonia, strongly suspect aspiration pneumonia 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 However his urinalysis is clean on this admission. Cultures are pending. History of nephrolithiasis. 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 Severe osteoporosis and recurrent bone fractures. Mentally impaired and blind History of colostomy. Recommendation: Transfer patient out of the ICU to a regular medical floor. Continue empiric antibiotics/vancomycin and cefepime. Continue GI and DVT prophylaxis. Patient is being followed by other consultants including infectious disease, and including neurology. We will continue to follow on when necessary basis. Time with Patient: Less than 30
[2022-02-16] MEDS ORDERED: VANCOMYCIN TROUGH DUE 1 EACH MISC MISCELLANE ONE (15:00)
--- NOTE | 2022-02-16 15:32 | P.PN ---
Subjective Progress Note Date: 02/16/22 Principal diagnosis: Sepsis/pneumonia Patient is a 56-year-old male transferred from [facility] with concern for sepsis from possible pneumonia in this patient who did have history of renal stone and recurrent UTI with recent ureteral stent placement. On today's evaluation that is 02/16/2022, the patient is afebrile this morning, patient is hemodynamically stable not requiring any pressor support, the patient is breathing comfortably on room air no vomiting or diarrhea has been reported by the nursing staff Objective - Vital Signs Vital signs: Vital Signs Temp 98.1 F 02/16/22 12:00 Pulse 53 L 02/16/22 12:00 Resp 12 02/16/22 12:00 BP 101/59 02/16/22 12:00 Pulse Ox 94 L 02/16/22 12:00 Intake & Output 02/15/22 02/16/22 02/16/22 18:59 06:59 18:59 Intake Total 1685 1810 750 Output Total 525 735 215 Balance 1160 1075 535 Weight 92.3 kg Intake: IV 1685 1810 650 Cefepime 2 gm In Sodium 125 Chloride 0.9% 100 ml @ 25 mls/hr IVPB Q8HR [facility] Rx# :[id number] Dextrose 5%-0.9% NaCl 1, 390 1025 360 000 ml @ 65 mls/hr IV . [id number] [facility]AVEENA Rx#:[id number] Sodium Chloride 0.9% 1, 1170 535 290 000 ml @ 65 mls/hr IV . [id number] [facility]EENA Rx#:[id number] Vancomycin 1,500 mg In 250 Sodium Chloride 0.9% 250 ml @ 125 mls/hr IVPB Q12H [facility]NA Rx#:[id number] Oral 100 Output: Urine 525 535 215 Stool 200 Other: Voiding Method Indwelling Catheter Indwelling Catheter Indwelling Catheter # Bowel Movements 1 1 - Exam GENERAL DESCRIPTION: Middle-age male lying in bed in no distress RESPIRATORY SYSTEM: Unlabored breathing , decreased breath sounds at bases HEART: S1 S2 regular rate and rhythm , ABDOMEN: Soft , no tenderness EXTREMITIES: No edema feet - Labs CBC & Chem 7: 02/16/22 07:06 02/16/22 07:06 Labs: Abnormal Lab Results - Last 24 Hours (Table) 02/15/22 02/15/22 02/15/22 Range/Units 07:11 23:29 23:43 RBC (4.30-5.90) m/uL Hgb (13.0-17.5) gm/dL Hct (39.0-53.0) % MCV (80.0-100.0) fL Plt Count (150-450) k/uL Macrocytosis Chloride (98-107) mmol/L Carbon Dioxide (22-30) mmol/L Creatinine (0.66-1.25) mg/dL POC Glucose (mg/dL) 65 L 72 L (75-99) mg/dL Calcium (8.4-10.2) mg/dL Procalcitonin 6.62 H (0.02-0.09) ng/mL 02/16/22 02/16/22 02/16/22 Range/Units 04:10 07:06 07:06 RBC 3.09 L (4.30-5.90) m/uL Hgb 10.5 L (13.0-17.5) gm/dL Hct 33.8 L (39.0-53.0) % MCV 109.4 H (80.0-100.0) fL Plt Count 109 L (150-450) k/uL Macrocytosis Marked A Chloride 115 H (98-107) mmol/L Carbon Dioxide 17 L (22-30) mmol/L Creatinine 0.58 L (0.66-1.25) mg/dL POC Glucose (mg/dL) 110 H (75-99) mg/dL Calcium 8.3 L (8.4-10.2) mg/dL Procalcitonin (0.02-0.09) ng/mL 02/16/22 Range/Units 11:19 RBC (4.30-5.90) m/uL Hgb (13.0-17.5) gm/dL Hct (39.0-53.0) % MCV (80.0-100.0) fL Plt Count (150-450) k/uL Macrocytosis Chloride (98-107) mmol/L Carbon Dioxide (22-30) mmol/L Creatinine (0.66-1.25) mg/dL POC Glucose (mg/dL) 100 H (75-99) mg/dL Calcium (8.4-10.2) mg/dL Procalcitonin (0.02-0.09) ng/mL Microbiology - Last 24 Hours (Table) 02/14/22 13:16 Urine Culture - Preliminary Urine,Clean Catch 02/14/22 13:17 Blood Culture - Preliminary Blood No Growth after 24 hours 02/14/22 13:00 Blood Culture - Preliminary Blood No Growth after 24 hours Assessment and Plan (1) Bilateral pneumonia Current Visit: Yes Status: Acute Code(s): J18.9 - PNEUMONIA, UNSPECIFIED ORGANISM SNOMED Code(s): 201313620 Plan: 1patient presented hospital with sepsis in this patient did have a fever elevated lactic acid tachycardia concerning for right lower lobe pneumonia in this patient who has been out of the hospital concerning for possible resistant gram-positive or gram-negative pathogen. 2we will try to obtain a sputum for gram stain and culture. 3patient seemed to have shown clinical improvement and the patient will continue with cefepime 2 g every 8 hours and vancomycin pharmacy to dose target trough of 15 while watching kidney function and vancomycin trough closely. Time with Patient: Less than 30
--- NOTE | 2022-02-16 17:44 | P.PN ---
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 Patient lives at [facility] in [place], and patient is mostl y wheelchair bound, bed bound, and since he was born the patient had many issues related to severe osteoporosis and recurrent left hip fractures, history of bowel issues requiring colostomy about a year and a half ago, history of recurrent urinary tract infections requiring multiple stent placements by Dr. 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 History of hypogonadism. History of obesity. And the patient has been seen in many institutions over the years including [facility], [facility], [facility], and most of the admissions were mostly related to recurrent infections. Few weeks ago, patient had stent placement by Dr. Johnson at [facility]. Apparently patient had multiple episodes of VRE urinary tract infections and has been frequently on antibiotics almost on a regular basis. Today the patient was noted to have altered mental status, fever, shortness of breath, and the staff at the [facility] sent the patient down to [facility] ER. His workup in the ER included a chest x-ray which was consistent with bilateral pneumonia right more so than left, his urinalysis was relatively unremarkable. Patient was febrile with a temp as high as 103, he was also hypotensive requiring fluid boluses, and required norepinephrine drip through a right femoral triple-lumen catheter that was placed by the ER physician at [facility]. Arrangements were made to transfer the patient to [facility], mother declined transfer to [facility] in [place]. I saw the patient in the ER, he is on 0.13 mcg/kg/m of norepinephrine, he already received antibiotics in the form of daptomycin and cefepime at [facility], I evaluated the patient, and recommended admission to the ICU. CODE STATUS has been discussed with the mother, and apparently the patient is DO NOT RESUSCITATE CODE STATUS at present February 15: ICU: Resume care off the patient from my colleague Dr. Ulrich. Patient doing better. Overnight patient was taken off levo fed. Patient is on room air. Telemetry shows sinus rhythm. Spoke to the father the bedside.: At baseline: Patient needs assistance with feeding. Is wheelchair bound. Has been in diapers. Poor eyesight. Patient did well with modified barium swallow this morning. February 16: ICU: Pending bed on the medical floor. Has been tolerating diet. Also scored on room air. On IV cefepime and vancomycin. Nasal swab for MRSA being sent off. Breathing stable. Active Medications Acetaminophen (Acetaminophen Tab 325 Mg Tab) 650 mg PO Q4HR PRN PRN Reason: Fever and/or Mild Pain Last Admin: 02/14/22 22:50 Dose: 650 mg Documented by: Acetaminophen (Acetaminophen Tab 500 Mg Tab) 1,000 mg PO Q6HR PRN PRN Reason: Pain Atropine Sulfate (Atropine Ophth Soln 1% 5ml Btl) 1 drops LEFT EYE [facility] Last Admin: 02/15/22 20:42 Dose: 1 drops Documented by: Benzocaine (Benzocaine 20 % Gel 11.9 Gm Tube) 1 applic MM QID PRN PRN Reason: Pain Divalproex Sodium (Divalproex Er 250 Mg Tab.Er.24h) 250 mg PO [facility] Last Admin: 02/15/22 20:42 Dose: 250 mg Documented by: Divalproex Sodium (Divalproex Er 500 Mg Tab.Er.24h) 1,000 mg PO [facility] Last Admin: 02/15/22 20:43 Dose: 1,000 mg Documented by: Enoxaparin Sodium (Enoxaparin 40 Mg/0.4 Ml Syringe) 40 mg SQ DAILY [facility] Last Admin: 02/16/22 08:01 Dose: 40 mg Documented by: Ergocalciferol (Ergocalciferol 1,250 Mcg (50,000 Iu) Capsule) 1,250 mcg PO WE [facility] Last Admin: 02/14/22 20:35 Dose: Not Given Documented by: Folic Acid (Folic Acid 1 Mg Tab) 1 mg PO [facility] Last Admin: 02/15/22 20:43 Dose: 1 mg Documented by: Glucose (Dextrose 4 Gm Chewable) 4 gm PO Q1H PRN PRN Reason: Blood Sugar - Low Last Admin: 02/15/22 23:32 Dose: 4 gm Documented by: Cefepime HCl 2 gm/ Sodium (Chloride) 100 mls @ 25 mls/hr IVPB Q8HR [facility]; Protocol Last Admin: 02/16/22 15:33 Dose: 25 mls/hr Documented by: Sodium Chloride (Saline 0.9%) 1,000 mls @ 65 mls/hr IV .[id number] [facility] Last Admin: 02/16/22 04:06 Dose: 65 mls/hr Documented by: Dextrose/Sodium Chloride (Dextrose 5%-Ns Iv Soln) 1,000 mls @ 65 mls/hr IV .[id number] [facility] Last Admin: 02/16/22 10:16 Dose: 65 mls/hr Documented by: Vancomycin HCl 1,750 mg/ (Sodium Chloride) 500 mls @ 167 mls/hr IVPB Q12H [facility] Lactulose (Lactulose 20 Gm/30 Ml Cup) 20 gm PO DAILY [facility] Last Admin: 02/16/22 09:15 Dose: Not Given Documented by: Lamotrigine (Lamotrigine 25 Mg Tab) 25 mg PO BID [facility] Last Admin: 02/16/22 08:01 Dose: 25 mg Documented by: Lamotrigine (Lamotrigine 100 Mg Tab) 200 mg PO BID [facility] Last Admin: 02/16/22 08:02 Dose: 200 mg Documented by: Levothyroxine Sodium (Levothyroxine 75 Mcg Tab) 75 mcg PO 0630 [facility] Last Admin: 02/16/22 06:22 Dose: 75 mcg Documented by: Lorazepam (Lorazepam 1 Mg Tab) 1 mg PO BID PRN PRN Reason: SEIZURE Magnesium Hydroxide (Magnesium Hydroxide 2,400 Mg/10 Ml Cup) 2,400 mg PO [facility] Last Admin: 02/15/22 20:43 Dose: Not Given Documented by: Naloxone HCl (Naloxone 0.4 Mg/Ml 1 Ml Vial) 0.2 mg IV Q2M PRN PRN Reason: Opioid Reversal Patient's Own ( Brivaracetam [ Briviact] 25 Mg Tablet) 25 mg PO [facility] Last Admin: 02/15/22 20:44 Dose: Not Given Documented by: Patient's Own ( Brivaracetam [ Briviact] 50 Mg Tablet) 50 mg PO [facility] Last Admin: 02/15/22 20:47 Dose: Not Given Documented by: Patient's Own ( Oxcarbazepine [ Oxtellar Xr] 600 Mg Tablet) 1,200 mg PO [facility] Last Admin: 02/15/22 20:47 Dose: Not Given Documented by: Cenobamate [Xcopri] (200 Mg Tablet) 200 mg PO [facility] Pantoprazole Sodium (Pantoprazole 40 Mg/10 Ml Vial) 40 mg IVP DAILY [facility] Last Admin: 02/16/22 08:01 Dose: 40 mg Documented by: Polyethylene Glycol (Polyethylene Glycol 3350 17 Gm Powd.Pack) 17 gm PO DAILY [facility] Last Admin: 02/16/22 09:15 Dose: Not Given Documented by: Potassium Chloride (Potassium Chloride Er 10 Meq Tab.Er.Prt) 10 meq PO DAILY [facility] Last Admin: 02/16/22 08:02 Dose: 10 meq Documented by: Prednisolone Acetate (Prednisolone Acetate 1% Ophth Drops 5 Ml Btl) 1 drops LEFT EYE QID [facility] Last Admin: 02/16/22 12:29 Dose: 1 drops Documented by: Risperidone (Risperidone 2 Mg Tab) 2 mg PO [facility] Last Admin: 02/15/22 20:43 Dose: 2 mg Documented by: Risperidone (Risperidone 2 Mg Tab) 4 mg PO DAILY [facility] Last Admin: 02/16/22 08:02 Dose: 4 mg Documented by: Senna (Sennosides 8.6 Mg Tab) 17.2 mg PO [facility] Last Admin: 02/15/22 20:43 Dose: 17.2 mg Documented by: Sertraline HCl (Sertraline 100 Mg Tab) 100 mg PO DAILY [facility] Last Admin: 02/16/22 08:02 Dose: 100 mg Documented by: Sodium Bicarbonate (Sodium Bicarbonate Tab 650 Mg Tab) 650 mg PO TID [facility] Last Admin: 02/16/22 15:34 Dose: 650 mg Documented by: Tamsulosin HCl (Tamsulosin 0.4 Mg Cap.Er.24h) 0.4 mg PO DAILY [facility] Last Admin: 02/16/22 08:02 Dose: 0.4 mg Documented by: Zonisamide (Zonisamide 100 Mg Cap) 100 mg PO DAILY [facility] Last Admin: 02/16/22 08:02 Dose: 100 mg Documented by: On examination: VITAL SIGNS: 98.1, 53, 12, 101/59, 94% room air GENERAL APPEARANCE: Reclining in bed, tired, not in distress HEENT: Normal external appearance of nose and ear. Oral cavity normal EYES: Poor eyesight NECK: JVD not raised. Mass not palpable. RESPIRATORY: Respiratory effort increased. Decreased breath sounds CARDIOVASCULAR: First and second sounds normal. No edema. ABDOMEN: Soft. Liver and spleen not palpable. No tenderness. No mass palpable. PSYCHIATRY: Able to answer some simple questions. INVESTIGATIONS, reviewed in the clinical context: February 16: White count 5.1 hemoglobin 10.5 platelets 109 sodium 138 potassium 3.9 creatinine 0.58 February 15: White count 5.7 hemoglobin 11 platelets 139 sodium 138 potassium 3.7 creatinine 0.77 Modified barium swallow: No aspiration Chest x-ray: Infiltrates Assessment and plan: : -Sepsis and septic shock, most likely source is aspiration pneumonia: Better IV fluids. Antibiotics. 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 However his urinalysis is clean on this admission. Cultures are pending. -nephrolithiasis. 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 Depakote, Lamictal, Zonegran -Severe osteoporosis and recurrent bone fractures. -Mentally impaired and blind -Chronic colostomy. -Chronic medical debility. Baseline on a wheelchair -Chronic visual impairment -Anxiety depression otherwise specified Depakote on IV cefepime. Vancomycin. Tolerating diet. We will check nasal swab for MRSA. If negative can DC vancomycin.
--- NOTE | 2022-02-16 18:28 | P.GSCN ---
History of Present Illness Consult date: 02/16/22 Reason for Consult: UTI Requesting physician: Tish Martin History of present illness: The patient is a 56-year-old white male well known to me. He has a history of developmental disability. He was found to have kidney stones in 2020. He underwent left ESWL in March 2021. He developed urinary retention on April 13 requ iring an indwelling Gaston catheter. Subsequently, he was hospitalized approximately 6 times with recurrent E. coli (ESBL) recurrent UTIs. He was found to have mild left hydronephrosis due to a small UPJ calculus. In July 2021, he underwent left ureteroscopy with Holmium laser lithotripsy to remove left renal calculi. His calculi are composed predominantly of calcium oxalate. A CT scan in November 2021 showed a small left renal pelvic calculus, with no evidence of hydronephrosis. He is now admitted with sepsis due to pneumonia. He was given levothyroid but this has been discontinued. The Gaston catheter is in place, draining clear yellow urine. He does report mild right flank disco mfort, the significance of which is unclear. Review of Systems - Constitutional Reports fever - Respiratory Reports dyspnea - Genitourinary Reports flank pain Past Medical History Past Medical History: Seizure Disorder Additional Past Medical History / Comment(s): Epileptic, mentally impaired, blind history of nephrolithiasis,ANITA GESTAUT SYNDROME, history of hypogonadism, history of hyponatremia, and history of recurrent episodes of sepsis mostly related to urinary tract infections. And mostly related to nephrolithiasis. History of Any Multi-Drug Resistant Organisms: None Reported Past Surgical History: Orthopedic Surgery Additional Past Surgical History / Comment(s): Cystoscopy, cystourethroscopy, shockwave lithotripsy, open reduction internal fixation of right ankle open treatment of medial malleolus fracture bypass descend colon cut, colostomy insertion of PICC lines history of buttock debridement incision and drainage and excision of buttock skin, open reduction internal fixation of tibia 01/09/20 Past Anesthesia/Blood Transfusion Reactions: No Reported Reaction Smoking Status: Never smoker Past Alcohol Use History: None Reported Past Drug Use History: None Reported - Past Family History Sister(s) Family Medical History: Cancer Brother(s) Family Medical History: Cancer Medications and Allergies Home Medications Medication Instructions Recorded Confirmed Type Atropine Ophth Soln 1% 5Ml [Isopto 1 drops LEFT EYE HS 04/20/15 02/14/22 History Atropine 1% 5Ml] LORazepam [Ativan] 1 mg PO DIRECTED PRN 04/20/15 02/14/22 History Sodium Bicarbonate Tab 650 mg PO TID 04/20/15 02/14/22 History Zonisamide [Zonegran] See Taper PO DAILY 04/20/15 02/14/22 History lamoTRIgine [LaMICtal] 25 mg PO BID 04/20/15 02/14/22 History lamoTRIgine [LaMICtal] 200 mg PO BID 04/20/15 02/14/22 History prednisoLONE ACETATE 1% OPHTH 1 drops LEFT EYE QID 04/20/15 02/14/22 History [Pred Forte 1%] Acetaminophen Tab [Tylenol Tab] 1,000 mg PO Q6HR PRN 02/14/22 02/14/22 History Benzocaine 20 % Gel [Orajel] 1 applic TOPICAL QID PRN 02/14/22 02/14/22 History Brivaracetam [Briviact] 25 mg PO HS 02/14/22 02/14/22 History Brivaracetam [Briviact] 50 mg PO HS 02/14/22 02/14/22 History Cenobamate [Xcopri] 200 mg PO HS 02/14/22 02/14/22 History Chlorhexidine Gluconate [Peridex] 15 ml PO BID 02/14/22 02/14/22 History Dextrose Chew [Glucose Chew Tab] 4 gm PO DIRECTED PRN 02/14/22 02/14/22 History Divalproex ER [Depakote ER] 1,000 mg PO HS 02/14/22 02/14/22 History Divalproex ER [Depakote ER] 250 mg PO HS 02/14/22 02/14/22 History Ergocalciferol [Vitamin D2 (1250 1,250 mcg PO WE 02/14/22 02/14/22 History Mcg = 74949 Iu)] Folic Acid 1 mg PO HS 02/14/22 02/14/22 History Ibuprofen [Motrin Ib] 200 - 800 mg PO Q8H PRN 02/14/22 02/14/22 History Ibuprofen [Motrin] 600 mg PO Q6H PRN 02/14/22 02/14/22 History Lactulose 20 gm PO DAILY 02/14/22 02/14/22 History Levothyroxine Sodium [Synthroid] 75 mcg PO DAILY 02/14/22 02/14/22 History Magnesium Hydroxide [Milk of 2,400 mg PO HS 02/14/22 02/14/22 History Magnesia] Nutritional Supplim 1 tab PO BID@1200,1930 02/14/22 02/14/22 History OXcarbazepine [Oxtellar Xr] 1,200 mg PO HS 02/14/22 02/14/22 History Omeprazole 40 mg PO DAILY 02/14/22 02/14/22 History Polyethylene Glycol 3350 [Miralax] 17 gm PO DAILY 02/14/22 02/14/22 History Potassium Chloride ER [K-Dur 10] 10 meq PO DAILY 02/14/22 02/14/22 History Propranolol [Inderal] 40 mg PO DAILY@1230 PRN 02/14/22 02/14/22 History Sennosides [Senna] 17.2 mg PO HS 02/14/22 02/14/22 History Sertraline [Zoloft] 100 mg PO DAILY 02/14/22 02/14/22 History Tamsulosin [Flomax] 0.4 mg PO DAILY 02/14/22 02/14/22 History risperiDONE [RisperDAL] 2 mg PO HS 02/14/22 02/14/22 History risperiDONE [RisperDAL] 4 mg PO DAILY 02/14/22 02/14/22 History Allergies Allergy/AdvReac Type Severity Reaction Status Date / Time No Known Allergies Allergy Verified 02/14/22 13:42 Surgical - Exam Vital Signs Temp Pulse Resp BP Pulse Ox 99.2 F 101 H 20 91/81 100 02/14/22 12:44 02/14/22 12:44 02/14/22 12:44 02/14/22 12:44 02/14/22 12:44 - General well developed, well nourished, no distress - Respiratory normal respiratory effort - Abdomen Abdomen: soft, non tender, no guarding, no rigid, no rebound - Genitourinary normal penis with no external lesions, testicles non-tender Results - Labs 02/16/22 07:06 02/16/22 07:06 Abnormal Lab Results - Last 24 Hours (Table) 02/15/22 02/15/22 02/15/22 Range/Units 07:11 07:11 07:11 RBC 3.26 L (4.30-5.90) m/uL Hgb 11.0 L (13.0-17.5) gm/dL Hct 36.7 L (39.0-53.0) % MCV 112.5 H D (80.0-100.0) fL MCHC 30.0 L (31.0-37.0) g/dL Plt Count 139 L (150-450) k/uL Lymphocytes # 0.8 L (1.0-4.8) k/uL Macrocytosis Marked A Chloride 112 H (98-107) mmol/L Carbon Dioxide 20 L (22-30) mmol/L POC Glucose (mg/dL) (75-99) mg/dL Calcium 8.3 L (8.4-10.2) mg/dL ALT 50 H (4-49) U/L C-Reactive Protein 19.2 H (<1.0) mg/dL Total Protein 5.5 L (6.3-8.2) g/dL Albumin 2.8 L (3.5-5.0) g/dL Procalcitonin 6.62 H (0.02-0.09) ng/mL 02/15/22 02/15/22 02/15/22 Range/Units 11:59 12:20 23:29 RBC (4.30-5.90) m/uL Hgb (13.0-17.5) gm/dL Hct (39.0-53.0) % MCV (80.0-100.0) fL MCHC (31.0-37.0) g/dL Plt Count (150-450) k/uL Lymphocytes # (1.0-4.8) k/uL Macrocytosis Chloride (98-107) mmol/L Carbon Dioxide (22-30) mmol/L POC Glucose (mg/dL) 55 L 105 H 65 L (75-99) mg/dL Calcium (8.4-10.2) mg/dL ALT (4-49) U/L C-Reactive Protein (<1.0) mg/dL Total Protein (6.3-8.2) g/dL Albumin (3.5-5.0) g/dL Procalcitonin (0.02-0.09) ng/mL 02/15/22 02/16/22 Range/Units 23:43 04:10 RBC (4.30-5.90) m/uL Hgb (13.0-17.5) gm/dL Hct (39.0-53.0) % MCV (80.0-100.0) fL MCHC (31.0-37.0) g/dL Plt Count (150-450) k/uL Lymphocytes # (1.0-4.8) k/uL Macrocytosis Chloride (98-107) mmol/L Carbon Dioxide (22-30) mmol/L POC Glucose (mg/dL) 72 L 110 H (75-99) mg/dL Calcium (8.4-10.2) mg/dL ALT (4-49) U/L C-Reactive Protein (<1.0) mg/dL Total Protein (6.3-8.2) g/dL Albumin (3.5-5.0) g/dL Procalcitonin (0.02-0.09) ng/mL Microbiology - Last 24 Hours (Table) 02/14/22 13:16 Urine Culture - Preliminary Urine,Clean Catch 02/14/22 13:17 Blood Culture - Preliminary Blood No Growth after 24 hours 02/14/22 13:00 Blood Culture - Preliminary Blood No Growth after 24 hours Diabetes panel 02/15/22 Range/Units 07:11 Sodium 138 (137-145) mmol/L Potassium 3.7 (3.5-5.1) mmol/L Chloride 112 H (98-107) mmol/L Carbon Dioxide 20 L (22-30) mmol/L BUN 15 (9-20) mg/dL Creatinine 0.77 (0.66-1.25) mg/dL Glucose 97 (74-99) mg/dL Calcium 8.3 L (8.4-10.2) mg/dL AST 56 (17-59) U/L ALT 50 H (4-49) U/L Alkaline Phosphatase 64 (38-126) U/L Total Protein 5.5 L (6.3-8.2) g/dL Albumin 2.8 L (3.5-5.0) g/dL Calcium panel 02/15/22 Range/Units 07:11 Calcium 8.3 L (8.4-10.2) mg/dL Albumin 2.8 L (3.5-5.0) g/dL Pituitary panel 02/15/22 Range/Units 07:11 Sodium 138 (137-145) mmol/L Potassium 3.7 (3.5-5.1) mmol/L Chloride 112 H (98-107) mmol/L Carbon Dioxide 20 L (22-30) mmol/L BUN 15 (9-20) mg/dL Creatinine 0.77 (0.66-1.25) mg/dL Glucose 97 (74-99) mg/dL Calcium 8.3 L (8.4-10.2) mg/dL Adrenal panel 02/15/22 Range/Units 07:11 Sodium 138 (137-145) mmol/L Potassium 3.7 (3.5-5.1) mmol/L Chloride 112 H (98-107) mmol/L Carbon Dioxide 20 L (22-30) mmol/L BUN 15 (9-20) mg/dL Creatinine 0.77 (0.66-1.25) mg/dL Glucose 97 (74-99) mg/dL Calcium 8.3 L (8.4-10.2) mg/dL Total Bilirubin 0.8 (0.2-1.3) mg/dL AST 56 (17-59) U/L ALT 50 H (4-49) U/L Alkaline Phosphatase 64 (38-126) U/L Total Protein 5.5 L (6.3-8.2) g/dL Albumin 2.8 L (3.5-5.0) g/dL Assessment and Plan (1) UTI (urinary tract infection) Current Visit: Yes Status: Acute Code(s): N39.0 - URINARY TRACT INFECTION, SITE NOT SPECIFIED SNOMED Code(s): 86738986 Plan: The patient has a complicated urologic history of kidney stones and recurrent UTIs. He is currently admitted with sepsis secondary to pneumonia. Urinalysis is suggestive of a possible infection. A urine culture is pending. I would suggest that he continue to receive broad-spectrum antibiotics until the urine culture is complete. The Gaston catheter may be removed when no longer needed.
[2022-02-16 20:13] LABS: Glucose,Whole Blood 82 mg/dL (75-99)
[2022-02-16] MEDS: FOLIC ACID 1 MG TAB PO SCH (20:19)
[2022-02-16] MEDS: SENNOSIDES 8.6 MG TAB PO SCH (20:19)
[2022-02-16] MEDS: MAGNESIUM HYDROXIDE 2,400 MG/10 ML CUP PO SCH (20:19)
[2022-02-16] MEDS: DIVALPROEX ER 500 MG TAB.ER.24H PO SCH (20:19)
[2022-02-16] MEDS: CENOBAMATE 200 MG PO SCH (20:21)
[2022-02-16] MEDS: Brivaracetam [Briviact] 50 MG Tablet PO SCH (20:21)
[2022-02-16] MEDS: OXCARBAZEPINE 600 MG PO SCH (20:22)
[2022-02-16] MEDS: ATROPINE OPHTH SOLN 1% 5ML BTL LEFT EYE SCH (20:28)
[2022-02-16] MEDS: DIVALPROEX ER 250 MG TAB.ER.24H PO SCH (20:28)
[2022-02-17 01:40] LABS: Glucose,Whole Blood 110 mg/dL (75-99)
[2022-02-17] MEDS: VANCOMYCIN 1,750 MG in SODIUM CHLORIDE 0.9% 500 ML 500 ML IVPB SCH ×2 (04:25→16:31)
[2022-02-17 06:07] LABS: African American GFR (CKD) >90 (>60 ml/min/1.73 sqM); Non-African American GFR(CKD) >90 (>60 ml/min/1.73 sqM)
[2022-02-17] MEDS: LEVOTHYROXINE 75 MCG TAB PO SCH (06:08)
[2022-02-17 06:18] LABS: Glucose,Whole Blood 103 mg/dL (75-99)
--- NOTE | 2022-02-17 07:23 | P.PN ---
Subjective Progress Note Date: 02/16/22 Patient was seen for a follow-up. Patient's one of the sister was present today. Patient apparently had a witnessed seizure, lasting for 30 seconds. Per nurse's description, his eyes were flickering, could not break his gaze. Post ictally he appeared stable, and was talking. It appears patient has not been receiving his nonformulary medications. Now they have been started. Objective - Vital Signs Vital signs: Vital Signs Temp 36.9 F L 02/16/22 16:00 Pulse 65 02/16/22 17:00 Resp 21 02/16/22 17:00 BP 131/84 02/16/22 17:00 Pulse Ox 98 02/16/22 17:00 Intake & Output 02/15/22 02/16/22 02/16/22 18:59 06:59 18:59 Intake Total 1685 1810 1400 Output Total 525 735 395 Balance 1160 1075 1005 Weight 92.3 kg Intake: IV 1685 1810 1300 Cefepime 2 gm In Sodium 125 Chloride 0.9% 100 ml @ 25 mls/hr IVPB Q8HR [facility] Rx# :[id number] Dextrose 5%-0.9% NaCl 1, 390 1025 685 000 ml @ 65 mls/hr IV . [id number] [facility] Rx#:[id number] Sodium Chloride 0.9% 1, 1170 535 615 000 ml @ 65 mls/hr IV . [id number] [facility] Rx#:[id number] Vancomycin 1,500 mg In 250 Sodium Chloride 0.9% 250 ml @ 125 mls/hr IVPB Q12H [facility] Rx#:[id number] Oral 100 Output: Urine 525 535 395 Stool 200 Other: Voiding Method Indwelling Catheter Indwelling Catheter Indwelling Catheter # Bowel Movements 1 1 - Exam Patient is alert and awake. He is trying to vocalize, speech is slightly more clear. Rest of the examination is unchanged. - Labs CBC & Chem 7: 02/16/22 07:06 02/17/22 05:03 Labs: Abnormal Lab Results - Last 24 Hours (Table) 02/15/22 02/15/22 02/16/22 Range/Units 23:29 23:43 04:10 RBC (4.30-5.90) m/uL Hgb (13.0-17.5) gm/dL Hct (39.0-53.0) % MCV (80.0-100.0) fL Plt Count (150-450) k/uL Macrocytosis Chloride (98-107) mmol/L Carbon Dioxide (22-30) mmol/L Creatinine (0.66-1.25) mg/dL POC Glucose (mg/dL) 65 L 72 L 110 H (75-99) mg/dL Calcium (8.4-10.2) mg/dL 02/16/22 02/16/22 02/16/22 Range/Units 07:06 07:06 11:19 RBC 3.09 L (4.30-5.90) m/uL Hgb 10.5 L (13.0-17.5) gm/dL Hct 33.8 L (39.0-53.0) % MCV 109.4 H (80.0-100.0) fL Plt Count 109 L (150-450) k/uL Macrocytosis Marked A Chloride 115 H (98-107) mmol/L Carbon Dioxide 17 L (22-30) mmol/L Creatinine 0.58 L (0.66-1.25) mg/dL POC Glucose (mg/dL) 100 H (75-99) mg/dL Calcium 8.3 L (8.4-10.2) mg/dL Microbiology - Last 24 Hours (Table) 02/14/22 13:17 Blood Culture - Preliminary Blood No Growth after 48 hours 02/14/22 13:00 Blood Culture - Preliminary Blood No Growth after 48 hours 02/14/22 13:16 Urine Culture - Preliminary Urine,Clean Catch Assessment and Plan Assessment: * 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 Patient admitted however for bilateral pneumonia and sepsis * Mentally challenged, legally blind, wheelchair dependent status * History of recurrent UTI * History of recurrent nephrolithiasis * History of multiple hip fractures. * Probable underlying osteoporosis. * DO NOT RESUSCITATE status Plan: * Patient appears to be on fairly high dose of multiple antiepileptic medications, however the levels are therapeutic as mentioned below. * Patient is on Lamictal 225 mg twice a day, Trileptal (Oxtellar XR 1200 mg daily), Depakote 1250 mg at bedtime, Briviact 75 mg at bedtime and most recent ly started on Xcopri (Cenobamate) 200 mg at bedtime. These medications have been resumed in the hospital. * According to the notes from Dr. Medina, patient is being weaned off Zonegran 100 mg capsules. He will be off Zonegran on 02/18/2022. * All antiepileptic medication levels are therapeutic, with Lamictal 9.3(2-15), Depakote 53.7 (50-100) and Trileptal 12.7(10-35). * No other neurological workup indicated. Continue present dose of AEDs. * Patient to follow up with his neurologist after discharge. * Patient's today's breakthrough seizure was likely due to not receiving his nonformulary medications. Please report neurology for any further breakthrough seizures.
[2022-02-17] MEDS: LACTULOSE 20 GM/30 ML CUP PO SCH (08:50)
[2022-02-17] MEDS: SERTRALINE 100 MG TAB PO SCH (08:50)
[2022-02-17] MEDS: lamoTRIgine 100 MG TAB PO SCH ×2 (08:50→20:31)
[2022-02-17] MEDS: ENOXAPARIN 40 MG/0.4 ML SYRINGE SQ SCH (08:51)
[2022-02-17] MEDS: POTASSIUM CHLORIDE ER 10 MEQ TAB.ER.PRT PO SCH (08:51)
[2022-02-17] MEDS: SODIUM BICARBONATE TAB 650 MG TAB PO SCH ×3 (08:51→21:30)
[2022-02-17] MEDS: CEFEPIME 2 GM in SODIUM CHLORIDE 0.9% 100 ML IVPB SCH ×2 (08:51→16:32)
[2022-02-17] MEDS: TAMSULOSIN 0.4 MG CAP.ER.24H PO SCH (08:51)
[2022-02-17] MEDS: risperiDONE 2 MG TAB PO SCH ×2 (08:52→20:31)
[2022-02-17] MEDS: polyethylene glycoL 3350 17 GM POWD.PACK PO SCH (08:52)
[2022-02-17] MEDS: lamoTRIgine 25 MG TAB PO SCH ×2 (08:53→20:31)
[2022-02-17] MEDS: ZONISAMIDE 100 MG CAP PO SCH (08:53)
[2022-02-17] MEDS: prednisoLONE ACETATE 1% OPHTH DROPS 5 ML BTL LEFT EYE SCH ×4 (08:54→21:24)
[2022-02-17] MEDS: SODIUM CHLORIDE 0.9% 1,000 ML IV SCH (08:55)
[2022-02-17] MEDS: PANTOPRAZOLE 40 MG/10 ML VIAL IVP SCH (09:18)
[2022-02-17] MEDS: DEXTROSE 5%-0.9% NACL 1,000 ML IV SCH (11:35)
[2022-02-17 12:03] LABS: Glucose,Whole Blood 94 mg/dL (75-99)
--- NOTE | 2022-02-17 12:22 | P.PN ---
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 Patient lives at [facility] in [place], and patient is mostl y wheelchair bound, bed bound, and since he was born the patient had many issues related to severe osteoporosis and recurrent left hip fractures, history of bowel issues requiring colostomy about a year and a half ago, history of recurrent urinary tract infections requiring multiple stent placements by Dr. 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 History of hypogonadism. History of obesity. And the patient has been seen in many institutions over the years including [facility], [facility], [facility], and most of the admissions were mostly related to recurrent infections. Few weeks ago, patient had stent placement by Dr. Johnson at [facility]. Apparently patient had multiple episodes of VRE urinary tract infections and has been frequently on antibiotics almost on a regular basis. Today the patient was noted to have altered mental status, fever, shortness of breath, and the staff at the [facility] sent the patient down to [facility] ER. His workup in the ER included a chest x-ray which was consistent with bilateral pneumonia right more so than left, his urinalysis was relatively unremarkable. Patient was febrile with a temp as high as 103, he was also hypotensive requiring fluid boluses, and required norepinephrine drip through a right femoral triple-lumen catheter that was placed by the ER physician at [facility]. Arrangements were made to transfer the patient to [facility], mother declined transfer to [facility] in [place]. I saw the patient in the ER, he is on 0.13 mcg/kg/m of norepinephrine, he already received antibiotics in the form of daptomycin and cefepime at [facility], I evaluated the patient, and recommended admission to the ICU. CODE STATUS has been discussed with the mother, and apparently the patient is DO NOT RESUSCITATE CODE STATUS at present February 15: ICU: Resume care off the patient from my colleague Dr. Ulrich. Patient doing better. Overnight patient was taken off levo fed. Patient is on room air. Telemetry shows sinus rhythm. Spoke to the father the bedside.: At baseline: Patient needs assistance with feeding. Is wheelchair bound. Has been in diapers. Poor eyesight. Patient did well with modified barium swallow this morning. February 16: ICU: Pending bed on the medical floor. Has been tolerating diet. Also scored on room air. On IV cefepime and vancomycin. Nasal swab for MRSA being sent off. Breathing stable. February 17: Eating well. Tired. IV cefepime and vancomycin. Active Medications Acetaminophen (Acetaminophen Tab 325 Mg Tab) 650 mg PO Q4HR PRN PRN Reason: Fever and/or Mild Pain Last Admin: 02/14/22 22:50 Dose: 650 mg Documented by: Acetaminophen (Acetaminophen Tab 500 Mg Tab) 1,000 mg PO Q6HR PRN PRN Reason: Pain Atropine Sulfate (Atropine Ophth Soln 1% 5ml Btl) 1 drops LEFT EYE [facility] Last Admin: 02/16/22 20:28 Dose: 1 drops Documented by: Benzocaine (Benzocaine 20 % Gel 11.9 Gm Tube) 1 applic MM QID PRN PRN Reason: Pain Divalproex Sodium (Divalproex Er 250 Mg Tab.Er.24h) 250 mg PO [facility] Last Admin: 02/16/22 20:28 Dose: 250 mg Documented by: Divalproex Sodium (Divalproex Er 500 Mg Tab.Er.24h) 1,000 mg PO [facility] Last Admin: 02/16/22 20:19 Dose: 1,000 mg Documented by: Enoxaparin Sodium (Enoxaparin 40 Mg/0.4 Ml Syringe) 40 mg SQ DAILY [facility] Last Admin: 02/17/22 08:51 Dose: 40 mg Documented by: Ergocalciferol (Ergocalciferol 1,250 Mcg (50,000 Iu) Capsule) 1,250 mcg PO WE [facility] Last Admin: 02/14/22 20:35 Dose: Not Given Documented by: Folic Acid (Folic Acid 1 Mg Tab) 1 mg PO [facility] Last Admin: 02/16/22 20:19 Dose: 1 mg Documented by: Glucose (Dextrose 4 Gm Chewable) 4 gm PO Q1H PRN PRN Reason: Blood Sugar - Low Last Admin: 02/15/22 23:32 Dose: 4 gm Documented by: Cefepime HCl 2 gm/ Sodium (Chloride) 100 mls @ 25 mls/hr IVPB Q8HR [facility]; Protocol Last Admin: 02/17/22 08:51 Dose: 25 mls/hr Documented by: Sodium Chloride (Saline 0.9%) 1,000 mls @ 65 mls/hr IV .[id number] [facility] Last Admin: 02/17/22 08:55 Dose: 65 mls/hr Documented by: Dextrose/Sodium Chloride (Dextrose 5%-Ns Iv Soln) 1,000 mls @ 65 mls/hr IV .[id number] [facility] Last Admin: 02/17/22 11:35 Dose: 65 mls/hr Documented by: Vancomycin HCl 1,750 mg/ (Sodium Chloride) 500 mls @ 167 mls/hr IVPB Q12H [facility] Last Admin: 02/17/22 04:25 Dose: 167 mls/hr Documented by: Lactulose (Lactulose 20 Gm/30 Ml Cup) 20 gm PO DAILY [facility] Last Admin: 02/17/22 08:50 Dose: 20 gm Documented by: Lamotrigine (Lamotrigine 25 Mg Tab) 25 mg PO BID [facility] Last Admin: 02/17/22 08:53 Dose: 25 mg Documented by: Lamotrigine (Lamotrigine 100 Mg Tab) 200 mg PO BID [facility] Last Admin: 02/17/22 08:50 Dose: 200 mg Documented by: Levothyroxine Sodium (Levothyroxine 75 Mcg Tab) 75 mcg PO 0630 [facility] Last Admin: 02/17/22 06:08 Dose: 75 mcg Documented by: Lorazepam (Lorazepam 1 Mg Tab) 1 mg PO BID PRN PRN Reason: SEIZURE Magnesium Hydroxide (Magnesium Hydroxide 2,400 Mg/10 Ml Cup) 2,400 mg PO [facility] Last Admin: 02/16/22 20:19 Dose: 2,400 mg Documented by: Naloxone HCl (Naloxone 0.4 Mg/Ml 1 Ml Vial) 0.2 mg IV Q2M PRN PRN Reason: Opioid Reversal Cenobamate [Xcopri] (200 Mg Tablet) 200 mg PO [facility] Last Admin: 02/16/22 20:21 Dose: 200 mg Documented by: Oxcarbazepine [ Oxtellar Xr] 600 Mg Tablet 1,200 mg PO [facility] Last Admin: 02/16/22 20:22 Dose: 1,200 mg Documented by: Brivaracetam [ Briviact] 25 Mg Tablet 25 mg PO [facility] Last Admin: 02/16/22 20:21 Dose: 25 mg Documented by: Brivaracetam [ Briviact] 50 Mg Tablet 50 mg PO [facility] Last Admin: 02/16/22 20:21 Dose: 50 mg Documented by: Pantoprazole Sodium (Pantoprazole 40 Mg/10 Ml Vial) 40 mg IVP DAILY [facility] Last Admin: 02/17/22 09:18 Dose: 40 mg Documented by: Polyethylene Glycol (Polyethylene Glycol 3350 17 Gm Powd.Pack) 17 gm PO DAILY [facility] Last Admin: 02/17/22 08:52 Dose: 17 gm Documented by: Potassium Chloride (Potassium Chloride Er 10 Meq Tab.Er.Prt) 10 meq PO DAILY [facility] Last Admin: 02/17/22 08:51 Dose: 10 meq Documented by: Prednisolone Acetate (Prednisolone Acetate 1% Ophth Drops 5 Ml Btl) 1 drops LEFT EYE QID [facility] Last Admin: 02/17/22 08:54 Dose: 1 drops Documented by: Risperidone (Risperidone 2 Mg Tab) 2 mg PO [facility] Last Admin: 02/16/22 20:20 Dose: 2 mg Documented by: Risperidone (Risperidone 2 Mg Tab) 4 mg PO DAILY [facility] Last Admin: 02/17/22 08:52 Dose: 4 mg Documented by: Senna (Sennosides 8.6 Mg Tab) 17.2 mg PO [facility] Last Admin: 02/16/22 20:19 Dose: 17.2 mg Documented by: Sertraline HCl (Sertraline 100 Mg Tab) 100 mg PO DAILY [facility] Last Admin: 02/17/22 08:50 Dose: 100 mg Documented by: Sodium Bicarbonate (Sodium Bicarbonate Tab 650 Mg Tab) 650 mg PO TID [facility] Last Admin: 02/17/22 08:51 Dose: 650 mg Documented by: Tamsulosin HCl (Tamsulosin 0.4 Mg Cap.Er.24h) 0.4 mg PO DAILY [facility] Last Admin: 02/17/22 08:51 Dose: 0.4 mg Documented by: Zonisamide (Zonisamide 100 Mg Cap) 100 mg PO DAILY [facility] Last Admin: 02/17/22 08:53 Dose: 100 mg Documented by: On examination: VITAL SIGNS: 98.7, 56, 17, 107/65, 98% room air GENERAL APPEARANCE: Reclining in bed, sleepy HEENT: Normal external appearance of nose and ear. Oral cavity normal EYES: Poor eyesight NECK: JVD not raised. Mass not palpable. RESPIRATORY: Respiratory effort increased. Decreased breath sounds CARDIOVASCULAR: First and second sounds normal. No edema. ABDOMEN: Soft. Liver and spleen not palpable. No tenderness. No mass palpable. PSYCHIATRY: Sleepy INVESTIGATIONS, reviewed in the clinical context: February 16: White count 5.1 hemoglobin 10.5 platelets 109 sodium 138 potassium 3.9 creatinine 0.58 February 15: White count 5.7 hemoglobin 11 platelets 139 sodium 138 potassium 3.7 creatinine 0.77 Modified barium swallow: No aspiration Chest x-ray: Infiltrates Assessment and plan: : -Sepsis and septic shock, most likely source is aspiration pneumonia: Better IV fluids. Antibiotics. 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 However his urinalysis is clean on this admission. Cultures are pending. -nephrolithiasis. 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 Depakote, Lamictal, Zonegran -Severe osteoporosis and recurrent bone fractures. -Mentally impaired and blind -Chronic colostomy. -Chronic medical debility. Baseline on a wheelchair -Chronic visual impairment -Anxiety depression otherwise specified Depakote on IV cefepime. Vancomycin. Eating well. Pending results nasal swab for MRSA. If negative can DC vancomycin.
[2022-02-17 18:42] LABS: Glucose,Whole Blood 76 mg/dL (75-99)
[2022-02-17] MEDS: ATROPINE OPHTH SOLN 1% 5ML BTL LEFT EYE SCH (20:30)
[2022-02-17] MEDS: SENNOSIDES 8.6 MG TAB PO SCH (20:31)
[2022-02-17] MEDS: DIVALPROEX ER 500 MG TAB.ER.24H PO SCH (20:31)
[2022-02-17] MEDS: FOLIC ACID 1 MG TAB PO SCH (20:31)
[2022-02-17] MEDS: MAGNESIUM HYDROXIDE 2,400 MG/10 ML CUP PO SCH (20:31)
[2022-02-17] MEDS: DIVALPROEX ER 250 MG TAB.ER.24H PO SCH (20:31)
[2022-02-17] MEDS: CENOBAMATE 200 MG PO SCH (21:17)
[2022-02-17] MEDS: Brivaracetam [Briviact] 50 MG Tablet PO SCH (21:18)
[2022-02-17] MEDS: OXCARBAZEPINE 600 MG PO SCH (21:22)
[2022-02-18 00:16] LABS: Glucose,Whole Blood 93 mg/dL (75-99)
[2022-02-18] MEDS: CEFEPIME 2 GM in SODIUM CHLORIDE 0.9% 100 ML IVPB SCH ×4 (00:22→23:51)
--- NOTE | 2022-02-18 00:27 | P.PN ---
Subjective Progress Note Date: 02/17/22 Principal diagnosis: Sepsis/pneumonia Patient is a 56-year-old male transferred from [facility] with concern for sepsis from possible pneumonia in this patient who did have history of renal stone and recurrent UTI with recent ureteral stent placement. On today's evaluation that is 02/17/2022, the patient remains to be afebrile, patient is breathing comfortably on room air no vomiting or diarrhea has been reported by the nursing staff Objective - Vital Signs Vital signs: Vital Signs Temp 97.9 F 02/17/22 14:00 Pulse 60 02/17/22 14:00 Resp 17 02/17/22 14:00 BP 105/65 02/17/22 14:00 Pulse Ox 94 L 02/17/22 15:36 Intake & Output 02/16/22 02/17/22 02/17/22 18:59 06:59 18:59 Intake Total 1400 900 Output Total 395 750 Balance 1005 150 Intake: IV 1300 900 Dextrose 5%-0.9% NaCl 1, 685 780 000 ml @ 65 mls/hr IV . [id number] [facility] Rx#:[id number] Sodium Chloride 0.9% 1, 615 120 000 ml @ 65 mls/hr IV . [id number] [facility] Rx#:[id number] Oral 100 Output: Urine 395 750 Other: Voiding Method Indwelling Catheter Incontinent Incontinent External Catheter External Catheter - Exam GENERAL DESCRIPTION: Middle-age male lying in bed in no distress RESPIRATORY SYSTEM: Unlabored breathing , decreased breath sounds at bases HEART: S1 S2 regular rate and rhythm , ABDOMEN: Soft , no tenderness EXTREMITIES: No edema feet - Labs CBC & Chem 7: 02/16/22 07:06 02/17/22 05:03 Labs: Abnormal Lab Results - Last 24 Hours (Table) 02/17/22 02/17/22 02/17/22 Range/Units 01:37 05:03 06:12 Creatinine 0.54 L (0.66-1.25) mg/dL POC Glucose (mg/dL) 110 H 103 H (75-99) mg/dL Microbiology - Last 24 Hours (Table) 02/14/22 13:17 Blood Culture - Preliminary Blood No Growth after 72 hours 02/14/22 13:00 Blood Culture - Preliminary Blood No Growth after 72 hours 02/14/22 13:16 Urine Culture - Final Urine,Clean Catch 02/16/22 12:30 Nasal Screen MRSA/MSSA - Preliminary Nasal Swab Assessment and Plan (1) Bilateral pneumonia Current Visit: Yes Status: Acute Code(s): J18.9 - PNEUMONIA, UNSPECIFIED ORGANISM SNOMED Code(s): 827255397 Plan: 1patient presented hospital with sepsis in this patient did have a fever elevated lactic acid tachycardia concerning for right lower lobe pneumonia in this patient who has been out of the hospital concerning for possible resistant gram-positive or gram-negative pathogen. 2we will try to obtain a sputum for gram stain and culture. 3patient a slowly clinical improvement and the patient will continue with c efepime 2 g every 8 hours and vancomycin pharmacy to dose target trough of 15 while watching kidney function and vancomycin trough closely and hopefully finishing therapy with oral antibiotics. Family the bedside questions were answered Time with Patient: Less than 30
[2022-02-18] MEDS: SODIUM CHLORIDE 0.9% 1,000 ML IV SCH (03:11)
[2022-02-18] MEDS: DEXTROSE 5%-0.9% NACL 1,000 ML IV SCH ×2 (03:12→13:16)
[2022-02-18] MEDS: VANCOMYCIN 1,750 MG in SODIUM CHLORIDE 0.9% 500 ML 500 ML IVPB SCH ×2 (03:56→16:14)
[2022-02-18 05:03] LABS: African American GFR (CKD) >90 (>60 ml/min/1.73 sqM); Non-African American GFR(CKD) >90 (>60 ml/min/1.73 sqM)
[2022-02-18] MEDS: LEVOTHYROXINE 75 MCG TAB PO SCH (05:51)
[2022-02-18 05:55] LABS: Glucose,Whole Blood 71 mg/dL (75-99)
[2022-02-18] MEDS: ENOXAPARIN 40 MG/0.4 ML SYRINGE SQ SCH (07:56)
[2022-02-18] MEDS: LACTULOSE 20 GM/30 ML CUP PO SCH (07:56)
[2022-02-18] MEDS: POTASSIUM CHLORIDE ER 10 MEQ TAB.ER.PRT PO SCH (07:57)
[2022-02-18] MEDS: polyethylene glycoL 3350 17 GM POWD.PACK PO SCH (07:57)
[2022-02-18] MEDS: risperiDONE 2 MG TAB PO SCH ×2 (07:58→20:57)
[2022-02-18] MEDS: SODIUM BICARBONATE TAB 650 MG TAB PO SCH ×3 (07:58→20:57)
[2022-02-18] MEDS: TAMSULOSIN 0.4 MG CAP.ER.24H PO SCH (07:58)
[2022-02-18] MEDS: SERTRALINE 100 MG TAB PO SCH (07:58)
[2022-02-18] MEDS: lamoTRIgine 100 MG TAB PO SCH ×2 (07:58→20:57)
[2022-02-18] MEDS: PANTOPRAZOLE 40 MG TABLET PO SCH (07:58)
[2022-02-18] MEDS: prednisoLONE ACETATE 1% OPHTH DROPS 5 ML BTL LEFT EYE SCH ×4 (08:01→20:58)
[2022-02-18] MEDS: lamoTRIgine 25 MG TAB PO SCH ×2 (08:01→20:58)
[2022-02-18] MEDS: ZONISAMIDE 100 MG CAP PO SCH (08:01)
--- NOTE | 2022-02-18 09:44 | P.PN ---
Progress Note - Text Progress Note Date: 02/18/22 The patient is resting comfortably. The Gaston catheter is out. He denies flank pain. His urine culture was negative. He does not appear to have any urologic pathology. Please notify me if I can be of any further assistance.
[2022-02-18 11:19] LABS: Glucose,Whole Blood 78 mg/dL (75-99)
[2022-02-18 17:05] LABS: Glucose,Whole Blood 89 mg/dL (75-99)
--- NOTE | 2022-02-18 19:32 | P.PN ---
Progress Note - Text Progress Note Date: 02/18/22 Aspiration pneumonia, sepsis, septic shock Hospital course: This is a 56-year-old white male with history of Uziel gestaut/LGS syndrome,, patient had 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 Patient lives at [facility] in [place], and patient is mostl y wheelchair bound, bed bound, and since he was born the patient had many issues related to severe osteoporosis and recurrent left hip fractures, history of bowel issues requiring colostomy about a year and a half ago, history of recurrent urinary tract infections requiring multiple stent placements by Dr. 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 History of hypogonadism. History of obesity. And the patient has been seen in many institutions over the years including [facility], [facility], [facility], and most of the admissions were mostly related to recurrent infections. Few weeks ago, patient had stent placement by Dr. Johnson at [facility]. Apparently patient had multiple episodes of VRE urinary tract infections and has been frequently on antibiotics almost on a regular basis. Today the patient was noted to have altered mental status, fever, shortness of breath, and the staff at the [facility] sent the patient down to [facility] ER. His workup in the ER included a chest x-ray which was consistent with bilateral pneumonia right more so than left, his urinalysis was relatively unremarkable. Patient was febrile with a temp as high as 103, he was also hypotensive requiring fluid boluses, and required norepinephrine drip through a right femoral triple-lumen catheter that was placed by the ER physician at [facility]. Arrangements were made to transfer the patient to [facility], mother declined transfer to [facility] in [place]. I saw the patient in the ER, he is on 0.13 mcg/kg/m of norepinephrine, he already received antibiotics in the form of daptomycin and cefepime at [facility], I evaluated the patient, and recommended admission to the ICU. CODE STATUS has been discussed with the mother, and apparently the patient is DO NOT RESUSCITATE CODE STATUS at present February 15: ICU: Resume care off the patient from my colleague Dr. Ulrich. Patient doing better. Overnight patient was taken off levo fed. Patient is on room air. Telemetry shows sinus rhythm. Spoke to the father the bedside.: At baseline: Patient needs assistance with feeding. Is wheelchair bound. Has been in diapers. Poor eyesight. Patient did well with modified barium swallow this morning. February 16: ICU: Pending bed on the medical floor. Has been tolerating diet. Also scored on room air. On IV cefepime and vancomycin. Nasal swab for MRSA being sent off. Breathing stable. February 17: Eating well. Tired. IV cefepime and vancomycin. February 18: Oral intake good. Breathing stable. MRSA nasal screen positive. Continue IV cefepime and vancomycin. Active Medications Acetaminophen (Acetaminophen Tab 500 Mg Tab) 1,000 mg PO Q6HR PRN PRN Reason: Pain Atropine Sulfate (Atropine Ophth Soln 1% 5ml Btl) 1 drops LEFT EYE [facility] Last Admin: 02/17/22 20:30 Dose: 1 drops Documented by: Benzocaine (Benzocaine 20 % Gel 11.9 Gm Tube) 1 applic MM QID PRN PRN Reason: Pain Divalproex Sodium (Divalproex Er 250 Mg Tab.Er.24h) 250 mg PO [facility] Last Admin: 02/17/22 20:31 Dose: 250 mg Documented by: Divalproex Sodium (Divalproex Er 500 Mg Tab.Er.24h) 1,000 mg PO [facility] Last Admin: 02/17/22 20:31 Dose: 1,000 mg Documented by: Enoxaparin Sodium (Enoxaparin 40 Mg/0.4 Ml Syringe) 40 mg SQ DAILY [facility] Last Admin: 02/18/22 07:56 Dose: 40 mg Documented by: Ergocalciferol (Ergocalciferol 1,250 Mcg (50,000 Iu) Capsule) 1,250 mcg PO WE [facility] Last Admin: 02/14/22 20:35 Dose: Not Given Documented by: Folic Acid (Folic Acid 1 Mg Tab) 1 mg PO [facility] Last Admin: 02/17/22 20:31 Dose: 1 mg Documented by: Glucose (Dextrose 4 Gm Chewable) 4 gm PO Q1H PRN PRN Reason: Blood Sugar - Low Last Admin: 02/15/22 23:32 Dose: 4 gm Documented by: Cefepime HCl 2 gm/ Sodium (Chloride) 100 mls @ 25 mls/hr IVPB Q8HR [facility]; Protocol Last Admin: 02/18/22 16:14 Dose: 25 mls/hr Documented by: Dextrose/Sodium Chloride (Dextrose 5%-Ns Iv Soln) 1,000 mls @ 65 mls/hr IV .[id number] [facility] Last Admin: 02/18/22 13:16 Dose: 65 mls/hr Documented by: Vancomycin HCl 1,750 mg/ (Sodium Chloride) 500 mls @ 167 mls/hr IVPB Q12H [facility] Last Admin: 02/18/22 16:14 Dose: 167 mls/hr Documented by: Lactulose (Lactulose 20 Gm/30 Ml Cup) 20 gm PO DAILY [facility] Last Admin: 02/18/22 07:56 Dose: 20 gm Documented by: Lamotrigine (Lamotrigine 25 Mg Tab) 25 mg PO BID [facility] Last Admin: 02/18/22 08:01 Dose: 25 mg Documented by: Lamotrigine (Lamotrigine 100 Mg Tab) 200 mg PO BID [facility] Last Admin: 02/18/22 07:58 Dose: 200 mg Documented by: Levothyroxine Sodium (Levothyroxine 75 Mcg Tab) 75 mcg PO 0630 [facility] Last Admin: 02/18/22 05:51 Dose: 75 mcg Documented by: Lorazepam (Lorazepam 1 Mg Tab) 1 mg PO BID PRN PRN Reason: SEIZURE Magnesium Hydroxide (Magnesium Hydroxide 2,400 Mg/10 Ml Cup) 2,400 mg PO [facility] Last Admin: 02/17/22 20:31 Dose: 2,400 mg Documented by: Miscellaneous Information (Vancomycin Trough Due 1 Each Misc) 0 each MISCELLANE DIRECTED ONE Stop: 02/19/22 03:01 Naloxone HCl (Naloxone 0.4 Mg/Ml 1 Ml Vial) 0.2 mg IV Q2M PRN PRN Reason: Opioid Reversal Cenobamate [Xcopri] (200 Mg Tablet) 200 mg PO [facility] Last Admin: 02/17/22 21:17 Dose: 200 mg Documented by: Oxcarbazepine [ Oxtellar Xr] 600 Mg Tablet 1,200 mg PO [facility] Last Admin: 02/17/22 21:22 Dose: 1,200 mg Documented by: Brivaracetam [ Briviact] 25 Mg Tablet 25 mg PO [facility] Last Admin: 02/17/22 21:18 Dose: 25 mg Documented by: Brivaracetam [ Briviact] 50 Mg Tablet 50 mg PO [facility] Last Admin: 02/17/22 21:18 Dose: 50 mg Documented by: Pantoprazole Sodium (Pantoprazole 40 Mg Tablet) 40 mg PO AC-BRKFST [facility] Last Admin: 02/18/22 07:58 Dose: 40 mg Documented by: Polyethylene Glycol (Polyethylene Glycol 3350 17 Gm Powd.Pack) 17 gm PO DAILY [facility] Last Admin: 02/18/22 07:57 Dose: 17 gm Documented by: Potassium Chloride (Potassium Chloride Er 10 Meq Tab.Er.Prt) 10 meq PO DAILY [facility] Last Admin: 02/18/22 07:57 Dose: 10 meq Documented by: Prednisolone Acetate (Prednisolone Acetate 1% Ophth Drops 5 Ml Btl) 1 drops LEFT EYE QID [facility] Last Admin: 02/18/22 16:15 Dose: 1 drops Documented by: Risperidone (Risperidone 2 Mg Tab) 2 mg PO [facility] Last Admin: 02/17/22 20:31 Dose: 2 mg Documented by: Risperidone (Risperidone 2 Mg Tab) 4 mg PO DAILY [facility] Last Admin: 02/18/22 07:58 Dose: 4 mg Documented by: Senna (Sennosides 8.6 Mg Tab) 17.2 mg PO [facility] Last Admin: 02/17/22 20:31 Dose: 17.2 mg Documented by: Sertraline HCl (Sertraline 100 Mg Tab) 100 mg PO DAILY [facility] Last Admin: 02/18/22 07:58 Dose: 100 mg Documented by: Sodium Bicarbonate (Sodium Bicarbonate Tab 650 Mg Tab) 650 mg PO TID [facility] Last Admin: 02/18/22 16:14 Dose: 650 mg Documented by: Tamsulosin HCl (Tamsulosin 0.4 Mg Cap.Er.24h) 0.4 mg PO DAILY [facility] Last Admin: 02/18/22 07:58 Dose: 0.4 mg Documented by: Zonisamide (Zonisamide 100 Mg Cap) 100 mg PO DAILY [facility] Last Admin: 02/18/22 08:01 Dose: 100 mg Documented by: On examination: VITAL SIGNS: 97.8, 70, 18, 117/70, 99% room air GENERAL APPEARANCE: Reclining in bed, comfortable HEENT: Normal external appearance of nose and ear. Oral cavity normal EYES: Poor eyesight NECK: JVD not raised. Mass not palpable. RESPIRATORY: Respiratory effort increased. Decreased breath sounds CARDIOVASCULAR: First and second sounds normal. No edema. ABDOMEN: Soft. Liver and spleen not palpable. No tenderness. No mass palpable. Colostomy. PSYCHIATRY: Answering simple questions INVESTIGATIONS, reviewed in the clinical context: February 16: White count 5.1 hemoglobin 10.5 platelets 109 sodium 138 potassium 3.9 creatinine 0.58 February 15: White count 5.7 hemoglobin 11 platelets 139 sodium 138 potassium 3.7 creatinine 0.77 Modified barium swallow: No aspiration Chest x-ray: Infiltrates Assessment and plan: : -Sepsis and septic shock, most likely source is aspiration pneumonia: Better IV fluids. Antibiotics. IV levo fed- discontinued -Acute bilateral pneumonia, strongly suspect aspiration pneumonia: Better. 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 However his urinalysis is clean on this admission. Cultures are pending. -nephrolithiasis. 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 Depakote, Lamictal, Zonegran -Severe osteoporosis and recurrent bone fractures. -Mentally impaired and blind -Chronic colostomy. -Chronic medical debility. Baseline on a wheelchair -Chronic visual impairment -Anxiety depression otherwise specified Depakote on IV cefepime. Vancomycin. Eating well. Other medications to continue. Antibiotics per ID.
--- NOTE | 2022-02-18 20:21 | P.PN ---
Progress Note - Text Progress Note Date: 02/18/22 Spoke to the nurse on phone. Patient is doing well. No further seizures reported. Patient is back on all seizure medications. Neurology will sign off. Please reconsult neurology if any concerns. Dr. Angel Pereyra will be resuming neurology service in the morning.
[2022-02-18] MEDS: DIVALPROEX ER 500 MG TAB.ER.24H PO SCH (20:56)
[2022-02-18] MEDS: SENNOSIDES 8.6 MG TAB PO SCH (20:57)
[2022-02-18] MEDS: DIVALPROEX ER 250 MG TAB.ER.24H PO SCH (20:57)
[2022-02-18] MEDS: MAGNESIUM HYDROXIDE 2,400 MG/10 ML CUP PO SCH (20:57)
[2022-02-18] MEDS: FOLIC ACID 1 MG TAB PO SCH (20:57)
[2022-02-18] MEDS: ATROPINE OPHTH SOLN 1% 5ML BTL LEFT EYE SCH (20:58)
[2022-02-18] MEDS: CENOBAMATE 200 MG PO SCH (22:11)
[2022-02-18] MEDS: Brivaracetam [Briviact] 50 MG Tablet PO SCH (22:12)
[2022-02-18] MEDS: OXCARBAZEPINE 600 MG PO SCH (22:12)
[2022-02-19 01:01] LABS: Glucose,Whole Blood 92 mg/dL (75-99)
[2022-02-19 02:17] VITALS: RESP 17
[2022-02-19] MEDS ORDERED: VANCOMYCIN TROUGH DUE 1 EACH MISC MISCELLANE ONE (03:00)
[2022-02-19 03:40] LABS: African American GFR (CKD) >90 (>60 ml/min/1.73 sqM); Anion Gap 4 mmol/L; Blood Urea Nitrogen 3 mg/dL (9-20); Calcium 8.1 mg/dL (8.4-10.2); Carbon Dioxide 27 mmol/L (22-30); Chloride 109 mmol/L (98-107); Glucose 94 mg/dL (74-99); Non-African American GFR(CKD) >90 (>60 ml/min/1.73 sqM); Potassium 3.7 mmol/L (3.5-5.1); Sodium 140 mmol/L (137-145)
[2022-02-19] MEDS: VANCOMYCIN 1,750 MG in SODIUM CHLORIDE 0.9% 500 ML 500 ML IVPB SCH (04:01)
[2022-02-19] MEDS: LEVOTHYROXINE 75 MCG TAB PO SCH (06:11)
[2022-02-19 06:17] LABS: Glucose,Whole Blood 79 mg/dL (75-99)
[2022-02-19 07:33] VITALS: BP 118/71; PULSE 60; TEMP 98.4
--- NOTE | 2022-02-19 07:36 | P.PN ---
Subjective Progress Note Date: 02/18/22 Principal diagnosis: Sepsis/pneumonia Patient is a 56-year-old male transferred from [facility] with concern for sepsis from possible pneumonia in this patient who did have history of renal stone and recurrent UTI with recent ureteral stent placement. On today's evaluation that is 02/18/2022, the patient is afebrile, patient is breathing comfortably on room air no vomiting or diarrhea has been reported by the nursing staff patient himself is not a very good historian Objective - Vital Signs Vital signs: Vital Signs Temp 97.8 F 02/18/22 07:20 Pulse 62 02/18/22 07:20 Resp 17 02/18/22 07:20 BP 129/73 02/18/22 07:20 Pulse Ox 96 02/18/22 07:20 Intake & Output 02/17/22 02/18/22 02/18/22 18:59 06:59 18:59 Other: Voiding Method Incontinent Incontinent Incontinent External Catheter External Catheter External Catheter # Voids 4 - Exam GENERAL DESCRIPTION: Middle-age male lying in bed in no distress RESPIRATORY SYSTEM: Unlabored breathing , decreased breath sounds at bases HEART: S1 S2 regular rate and rhythm , ABDOMEN: Soft , no tenderness EXTREMITIES: No edema feet - Labs CBC & Chem 7: 02/16/22 07:06 02/19/22 02:58 Labs: Abnormal Lab Results - Last 24 Hours (Table) 02/18/22 02/18/22 Range/Units 04:05 05:51 Creatinine 0.53 L (0.66-1.25) mg/dL POC Glucose (mg/dL) 71 L (75-99) mg/dL Microbiology - Last 24 Hours (Table) 02/16/22 12:30 Nasal Screen MRSA/MSSA - Final Nasal Swab Methicillin resist S. aureus 02/14/22 13:17 Blood Culture - Preliminary Blood No Growth after 72 hours 02/14/22 13:00 Blood Culture - Preliminary Blood No Growth after 72 hours Assessment and Plan (1) Bilateral pneumonia Current Visit: Yes Status: Acute Code(s): J18.9 - PNEUMONIA, UNSPECIFIED ORGANISM SNOMED Code(s): 402046313 Plan: 1patient presented hospital with sepsis in this patient did have a fever elevated lactic acid tachycardia concerning for right lower lobe pneumonia in this patient who has been out of the hospital concerning for possible resistant gram-positive or gram-negative pathogen. 2we will try to obtain a sputum for gram stain and culture. 3patient is showing overall clinical improvement, afebrile culture has been negative, patient to continue with cefepime 2 g every 8 hours and vancomycin pharmacy to dose target trough of 15 while watching kidney function and vancomycin trough closely with the plan to finish therapy with oral Avelox and doxycycline Time with Patient: Less than 30
[2022-02-19] MEDS: ENOXAPARIN 40 MG/0.4 ML SYRINGE SQ SCH (09:02)
[2022-02-19] MEDS: PANTOPRAZOLE 40 MG TABLET PO SCH (09:02)
[2022-02-19] MEDS: polyethylene glycoL 3350 17 GM POWD.PACK PO SCH (09:02)
[2022-02-19] MEDS: lamoTRIgine 100 MG TAB PO SCH (09:02)
[2022-02-19] MEDS: SODIUM BICARBONATE TAB 650 MG TAB PO SCH (09:02)
[2022-02-19] MEDS: LACTULOSE 20 GM/30 ML CUP PO SCH (09:02)
[2022-02-19] MEDS: SERTRALINE 100 MG TAB PO SCH (09:02)
[2022-02-19] MEDS: POTASSIUM CHLORIDE ER 10 MEQ TAB.ER.PRT PO SCH (09:02)
[2022-02-19] MEDS: DEXTROSE 5%-0.9% NACL 1,000 ML IV SCH (09:03)
[2022-02-19] MEDS: ZONISAMIDE 100 MG CAP PO SCH (09:03)
[2022-02-19] MEDS: TAMSULOSIN 0.4 MG CAP.ER.24H PO SCH (09:03)
[2022-02-19] MEDS: risperiDONE 2 MG TAB PO SCH (09:03)
[2022-02-19] MEDS: lamoTRIgine 25 MG TAB PO SCH (09:04)
[2022-02-19] MEDS: prednisoLONE ACETATE 1% OPHTH DROPS 5 ML BTL LEFT EYE SCH ×2 (09:08→13:53)
[2022-02-19] MEDS: CEFEPIME 2 GM in SODIUM CHLORIDE 0.9% 100 ML IVPB SCH (09:22)
[2022-02-19 11:21] LABS: Glucose,Whole Blood 71 mg/dL (75-99)
[2022-02-19] MEDS ORDERED: VANCOMYCIN 1,250 MG in SODIUM CHLORIDE 0.9% 250 ML IVPB SCH (12:00)
--- NOTE | 2022-02-19 19:59 | P.DS ---
Providers Date of admission: 02/14/22 12:52 Expected date of discharge: 02/19/22 Attending physician: Luis Antonio Groves Consults: 02/14/22 12:52 Consult Physician Routine Consulting Provider: Tish Martin Consult Reason/Comments: Sepsis Do you want consulting provider notified?: Already Contacted Consult Physician Routine Consulting Provider: Bobbi iMlls Consult Reason/Comments: Sepsis, BL PNA Do you want consulting provider notified?: Yes 02/14/22 15:03 Consult Physician Routine Consulting Provider: Bobbi Mills Consult Reason/Comments: septic shock Do you want consulting provider notified?: Yes 02/14/22 15:04 Consult Physician Routine Consulting Provider: Rupert Johnson Consult Reason/Comments: NEPHROLITHIASIS/STENT KNOWN TO HIM Do you want consulting provider notified?: Yes Consult Physician Routine Consulting Provider: Varsha Hernandez Consult Reason/Comments: LGS/SEIZURES Do you want consulting provider notified?: Yes Primary care physician: Fernando Layne MD Hospital Course: Aspiration pneumonia, sepsis, septic shock Hospital course: This is a 56-year-old white male with history of Freeport gestaut/LGS syndrome,, patient had 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 Patient lives [facility] in [place], and patient is mostly wheelchair bound, bed bound, and since he was born the patient had many issues related to severe osteoporosis and recurrent left hip fractures, history of bowel issues requiring colostomy about a year and a half ago, history of recurrent urinary tract infections requiring multiple stent placements by Dr. 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 History of hypogonadism. History of obesity. And the patient has been seen in many institutions over the years including [facility], [facility], [facility], and most of the admissions were mostly related to recurrent infections. Few weeks ago, patient had stent placement by Dr. Johnson at [facility]. Apparently patient had multiple episodes of VRE urinary tract infections and has been frequently on antibiotics almost on a regular basis. Today the patient was noted to have altered mental status, fever, shortness of breath, and the staff [facility] to [facility] ER. His workup in the ER included a chest x-ray which was consistent with bilateral pneumonia right more so than left, his urinalysis was relatively unremarkable. Patient was febrile with a temp as high as 103, he was also hypotensive requiring fluid boluses, and required norepinephrine drip through a right femoral triple-lumen catheter that was placed by the ER physician at [facility]. Arran gements were made to transfer the patient to [facility], mother declined transfer to [facility] in [place]. I saw the patient in the ER, he is on 0.13 mcg/kg/m of norepinephrine, he already received antibiotics in the form of daptomycin and cefepime at [facility], I evaluated the patient, and recommended admission to the ICU. CODE STATUS has been discussed with the amita velazquez, and apparently the patient is DO NOT RESUSCITATE CODE STATUS at present February 15: ICU: Resume care off the patient from my colleague Dr. Ulrich. Patient doing better. Overnight patient was taken off levo fed. Patient is on room air. Telemetry shows sinus rhythm. Spoke to the father the bedside.: At baseline: Patient needs assistance with feeding. Is wheelchair bound. Has been in diapers. Poor eyesight. Patient did well with modified barium swallow this morning. February 16: ICU: Pending bed on the medical floor. Has been tolerating diet. Also scored on room air. On IV cefepime and vancomycin. Nasal swab for MRSA being sent off. Breathing stable. February 7: Eating well. Tired. IV cefepime and vancomycin. February 8: Oral intake good. Breathing stable. MRSA nasal screen positive. Con tinue IV cefepime and vancomycin. February 19: Patient doing well. Oral intake good. Sister the bedside. Questions answered. Being discharged on Avelox and doxycycline per ID for 5 days. Questions answered. Patient able to answer simple questions. Discussion and discharge planning more than 35 minutes On examination: VITAL SIGNS: 98.4, 16, 17, 118/71, 95% room air GENERAL APPEARANCE: Reclining in bed, comfortable HEENT: Normal external appearance of nose and ear. Oral cavity normal EYES: Poor eyesight NECK: JVD not raised. Mass not palpable. RESPIRATORY: Respiratory effort increased. Decreased breath sounds CARDIOVASCULAR: First and second sounds normal. No edema. ABDOMEN: Soft. Liver and spleen not palpable. No tenderness. No mass palpable. Colostomy. PSYCHIATRY: Answering simple questions INVESTIGATIONS, reviewed in the clinical context: February 19: Potassium 3.7 creatinine 0.5 for February 16: White count 5.1 hemoglobin 10.5 platelets 109 sodium 138 potassium 3.9 creatinine 0.58 February 15: White count 5.7 hemoglobin 11 platelets 139 sodium 138 potassium 3.7 creatinine 0.77 Modified barium swallow: No aspiration Chest x-ray: Infiltrates Assessment and plan: : -Sepsis and septic shock, most likely source is aspiration pneumonia: Better IV fluids. Antibiotics. IV levo fed- discontinued -Acute bilateral pneumonia, strongly suspect aspiration pneumonia: Better. Nasal screen positive for MRSA IV cefepime, vancomycin. 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 However his urinalysis is clean on this admission. Cultures are pending. -nephrolithiasis. 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 Depakote, Lamictal, Zonegran -Severe osteoporosis and recurrent bone fractures. -Mentally impaired and blind -Chronic colostomy. -Chronic medical debility. Baseline on a wheelchair -Chronic visual impairment -Anxiety depression otherwise specified Depakote Disposition: [facility] assisted living Plan - Discharge Summary New Discharge Prescriptions: New Moxifloxacin HCl [Avelox] 400 mg PO DAILY #5 tablet Doxycycline Hyclate 100 mg PO Q12H 5 Days #10 tab Continue Sodium Bicarbonate Tab 650 mg PO TID prednisoLONE ACETATE 1% OPHTH [Pred Forte 1%] 1 drops LEFT EYE QID lamoTRIgine [LaMICtal] 25 mg PO BID Zonisamide [Zonegran] See Taper PO DAILY lamoTRIgine [LaMICtal] 200 mg PO BID LORazepam [Ativan] 1 mg PO DIRECTED PRN PRN Reason: Seizures Atropine Ophth Soln 1% 5Ml [Isopto Atropine 1% 5Ml] 1 drops LEFT EYE HS Benzocaine 20 % Gel [Orajel] 1 applic TOPICAL QID PRN PRN Reason: Pain Ergocalciferol [Vitamin D2 (1250 Mcg = 86115 Iu)] 1,250 mcg PO WE Sertraline [Zoloft] 100 mg PO DAILY Potassium Chloride ER [K-Dur 10] 10 meq PO DAILY Polyethylene Glycol 3350 [Miralax] 17 gm PO DAILY Omeprazole 40 mg PO DAILY Magnesium Hydroxide [Milk of Magnesia] 2,400 mg PO HS Lactulose 20 gm PO DAILY Folic Acid 1 mg PO HS Divalproex ER [Depakote ER] 1,000 mg PO HS Divalproex ER [Depakote ER] 250 mg PO HS Chlorhexidine Gluconate [Peridex] 15 ml PO BID Brivaracetam [Briviact] 25 mg PO HS Nutritional Supplim 1 tab PO BID@1200,1930 Dextrose Chew [Glucose Chew Tab] 4 gm PO DIRECTED PRN PRN Reason: Blood Sugar - Low Ibuprofen [Motrin Ib] 200 - 800 mg PO Q8H PRN PRN Reason: Pain Or Fever > 100.5 Acetaminophen Tab [Tylenol] 1,000 mg PO Q6HR PRN PRN Reason: Pain Cenobamate [Xcopri] 200 mg PO HS Tamsulosin [Flomax] 0.4 mg PO DAILY risperiDONE [RisperDAL] 2 mg PO HS Sennosides [Senna] 17.2 mg PO HS risperiDONE [RisperDAL] 4 mg PO DAILY OXcarbazepine [Oxtellar Xr] 1,200 mg PO HS Levothyroxine Sodium [Synthroid] 75 mcg PO DAILY Brivaracetam [Briviact] 50 mg PO HS Discontinued Ibuprofen [Motrin] 600 mg PO Q6H PRN PRN Reason: Severe Pain Propranolol [Inderal] 40 mg PO DAILY@1230 PRN PRN Reason: HEART RATE OVER 60 Discharge Medication List Atropine Ophth Soln 1% 5Ml [Isopto Atropine 1% 5Ml] 1 drops LEFT EYE HS 04/20/15 [History] LORazepam [Ativan] 1 mg PO DIRECTED PRN 04/20/15 [History] Sodium Bicarbonate Tab 650 mg PO TID 04/20/15 [History] Zonisamide [Zonegran] See Taper PO DAILY 04/20/15 [History] lamoTRIgine [LaMICtal] 25 mg PO BID 04/20/15 [History] lamoTRIgine [LaMICtal] 200 mg PO BID 04/20/15 [History] prednisoLONE ACETATE 1% OPHTH [Pred Forte 1%] 1 drops LEFT EYE QID 04/20/15 [History] Acetaminophen Tab [Tylenol] 1,000 mg PO Q6HR PRN 02/14/22 [History] Benzocaine 20 % Gel [Orajel] 1 applic TOPICAL QID PRN 02/14/22 [History] Brivaracetam [Briviact] 25 mg PO HS 02/14/22 [History] Brivaracetam [Briviact] 50 mg PO HS 02/14/22 [History] Cenobamate [Xcopri] 200 mg PO HS 02/14/22 [History] Chlorhexidine Gluconate [Peridex] 15 ml PO BID 02/14/22 [History] Dextrose Chew [Glucose Chew Tab] 4 gm PO DIRECTED PRN 02/14/22 [History] Divalproex ER [Depakote ER] 1,000 mg PO HS 02/14/22 [History] Divalproex ER [Depakote ER] 250 mg PO HS 02/14/22 [History] Ergocalciferol [Vitamin D2 (1250 Mcg = 37785 Iu)] 1,250 mcg PO WE 02/14/22 [History] Folic Acid 1 mg PO HS 02/14/22 [History] Ibuprofen [Motrin Ib] 200 - 800 mg PO Q8H PRN 02/14/22 [History] Lactulose 20 gm PO DAILY 02/14/22 [History] Levothyroxine Sodium [Synthroid] 75 mcg PO DAILY 02/14/22 [History] Magnesium Hydroxide [Milk of Magnesia] 2,400 mg PO HS 02/14/22 [History] Nutritional Supplim 1 tab PO BID@1200,1930 02/14/22 [History] OXcarbazepine [Oxtellar Xr] 1,200 mg PO HS 02/14/22 [History] Omeprazole 40 mg PO DAILY 02/14/22 [History] Polyethylene Glycol 3350 [Miralax] 17 gm PO DAILY 02/14/22 [History] Potassium Chloride ER [K-Dur 10] 10 meq PO DAILY 02/14/22 [History] Sennosides [Senna] 17.2 mg PO HS 02/14/22 [History] Sertraline [Zoloft] 100 mg PO DAILY 02/14/22 [History] Tamsulosin [Flomax] 0.4 mg PO DAILY 02/14/22 [History] risperiDONE [RisperDAL] 2 mg PO HS 02/14/22 [History] risperiDONE [RisperDAL] 4 mg PO DAILY 02/14/22 [History] Doxycycline Hyclate 100 mg PO Q12H 5 Days #10 tab 02/19/22 [Rx] Moxifloxacin HCl [Avelox] 400 mg PO DAILY #5 tablet 02/19/22 [Rx] Follow up Appointment(s)/Referral(s): Fernando Layne MD [Primary Care Provider] - 1 Week None,Stated [REFERRING] - 1-2 days Patient Instructions/Handouts: Urinary Tract Infection in Men (DC), Sepsis (DC) Activity/Diet/Wound Care/Special Instructions: Abx per dr mills Discharge Disposition: TRANSFER TO SNF/ECF
[2022-02-20] MEDS ORDERED: VANCOMYCIN TROUGH DUE 1 EACH MISC MISCELLANE ONE (11:00)
== END 2022-02-19 13:54 | disposition home or self-care (01) | DRG 871 ==
LOC: EC 12:41 → 2SICU 12:52 → 4SSUR 02-16 18:55
PROVIDERS: ADMIT Hospitalist; ATTEND Hospitalist
PROC: 3E043XZ Introduction of Vasopressor into Central Vein, Percutaneous Approach (ICD-10-PCS; principal; 2022-02-14)
DX: A41.9 Sepsis, unspecified organism (principal); R65.21 Severe sepsis with septic shock; J69.0 Pneumonitis due to inhalation of food and vomit; G40.814 Lennox-Gastaut syndrome, intractable, without status epilepticus; N39.0 Urinary tract infection, site not specified; Z43.3 Encounter for attention to colostomy; Z66 Do not resuscitate; M81.0 Age-related osteoporosis without current pathological fracture; H54.8 Legal blindness, as defined in USA; F32.A Depression, unspecified; F41.9 Anxiety disorder, unspecified; E29.1 Testicular hypofunction; F89 Unspecified disorder of psychological development; R32 Unspecified urinary incontinence; R53.81 Other malaise; E66.9 Obesity, unspecified; Z68.27 Body mass index [BMI] 27.0-27.9, adult; Z79.1 Long term (current) use of non-steroidal anti-inflammatories (NSAID); Z79.890 Hormone replacement therapy; Z79.899 Other long term (current) drug therapy; Z87.440 Personal history of urinary (tract) infections; Z87.310 Personal history of (healed) osteoporosis fracture; Z99.3 Dependence on wheelchair; Z74.01 Bed confinement status; Z86.14 Personal history of Methicillin resistant Staphylococcus aureus infection; Z87.442 Personal history of urinary calculi; Z87.2 Personal history of diseases of the skin and subcutaneous tissue; Z86.19 Personal history of other infectious and parasitic diseases; Z96.649 Presence of unspecified artificial hip joint; Z98.890 Other specified postprocedural states; Z80.9 Family history of malignant neoplasm, unspecified
CPT/HCPCS: 71045; 74230; 80048; 80053; 80164; 80175; 80183; 80202; 81001; 82565; 83605; 83735; 84145; 85025; 85027; 85610; 85730; 86140; 87040; 87070; 87086; 99291

== ENCOUNTER 2024-03-18 12:06 | Inpatient (IN) | payer MEDICARE, OTHER ==
--- NOTE | 2024-03-18 12:59 | ED ---
General Adult HPI - General Chief complaint: Altered Mental Status Stated complaint: altered mental status Time Seen by Provider: 03/18/24 12:14 Source: EMS Mode of arrival: EMS Limitations: altered mental status - History of Present Illness Initial comments: Dictation was produced using [employer] dictation software. please excuse any grammatical, word or spelling errors. Chief Complaint: 58-year-old male presents to the emergency department for UTI and altered mental status History of Present Illness: Patient is 50-year-old male he has history of mental debility. Patient presents via EMS from longterm allegedly. Patient apparently has been little bit more lethargic than usual. Patient at baseline is ANO times 2 out of 4. States that he has been seemingly limited more sleepy than usual. Apparently he was seen here recently for nephrolithiasis. Patient recently admitted for acute delirium secondary to dehydration. Patient does have results faxed over for positive urine culture for Enterococcus. Patient able to answer basic questions. He denies any pain The ROS documented in this emergency department record has been reviewed and confirmed by me. Those systems with pertinent positive or negative responses have been documented in the HPI. All other systems are other negative and/or noncontributory. - Related Data Home Medications Medication Instructions Recorded Confirmed Atropine Ophth Soln 1% 5Ml [Isopto 1 drops LEFT EYE HS 04/20/15 03/03/24 Atropine 1% 5Ml] LORazepam [Ativan] 1 mg PO DIRECTED PRN 04/20/15 03/03/24 Sodium Bicarbonate Tab 650 mg PO TID 04/20/15 03/03/24 lamoTRIgine [LaMICtal] 25 mg PO BID 04/20/15 03/03/24 lamoTRIgine [LaMICtal] 200 mg PO BID 04/20/15 03/03/24 prednisoLONE ACETATE 1% OPHTH 1 drops LEFT EYE QID 04/20/15 03/03/24 [Pred Forte 1%] Benzocaine 20 % Gel [Orajel] 1 applic TOPICAL QID PRN 02/14/22 03/03/24 Brivaracetam [Briviact] 25 mg PO HS 02/14/22 03/03/24 Brivaracetam [Briviact] 50 mg PO HS 02/14/22 03/03/24 Cenobamate [Xcopri] 200 mg PO HS 02/14/22 03/03/24 Dextrose Chew [Glucose Chew Tab] 4 gm PO DIRECTED PRN 02/14/22 03/03/24 Divalproex ER [Depakote ER] 1,000 mg PO HS 02/14/22 03/03/24 Divalproex ER [Depakote ER] 250 mg PO HS 02/14/22 03/03/24 Ergocalciferol [Vitamin D2 (1250 1,250 mcg PO WE 02/14/22 03/03/24 Mcg = 43730 Iu)] Folic Acid 1 mg PO HS 02/14/22 03/03/24 Ibuprofen [Motrin Ib] 400 mg PO Q4H PRN 02/14/22 03/03/24 Lactulose 20 gm PO DAILY 02/14/22 03/03/24 Levothyroxine Sodium [Synthroid] 75 mcg PO DAILY 02/14/22 03/03/24 Magnesium Hydroxide [Milk of 2,400 mg PO HS 02/14/22 03/03/24 Magnesia] OXcarbazepine [Oxtellar Xr] 1,200 mg PO HS 02/14/22 03/03/24 Omeprazole 40 mg PO DAILY 02/14/22 03/03/24 Potassium Chloride ER [K-Dur 10] 10 meq PO DAILY 02/14/22 03/03/24 Sennosides [Senna] 17.2 mg PO HS 02/14/22 03/03/24 Sertraline [Zoloft] 100 mg PO DAILY 02/14/22 03/03/24 Tamsulosin [Flomax] 0.4 mg PO DAILY 02/14/22 03/03/24 polyethylene glycoL 3350 [Miralax] 17 gm PO DAILY 02/14/22 03/03/24 risperiDONE [RisperDAL] 3 mg PO HS 02/14/22 03/03/24 risperiDONE [RisperDAL] 4 mg PO DAILY 02/14/22 03/03/24 Acetaminophen Tab [Tylenol] 325 mg PO DIRECTED PRN 03/03/24 03/03/24 Lactose-Reduced Food [Boost] 1 can PO BID 03/03/24 03/03/24 Propranolol [Inderal] 40 mg PO PC-SUPPER 03/03/24 03/03/24 Sodium Chloride Tab 1 gm PO DAILY 03/03/24 03/03/24 guaiFENesin-DM 100-10MG/5ML 10 ml PO Q4H PRN MDD 6 DOSES/24 HRS 03/03/24 [Robitussin DM] Allergies Allergy/AdvReac Type Severity Reaction Status Date / Time No Known Allergies Allergy Verified 03/18/24 12:15 Review of Systems ROS Statement: Those systems with pertinent positive or pertinent negative responses have been documented in the HPI. ROS Other: All systems not noted in ROS Statement are negative. Past Medical History Past Medical History: Seizure Disorder Additional Past Medical History / Comment(s): Epileptic, mentally impaired, blind history of nephrolithiasis,ANITA GESTAUT SYNDROME, history of hypogonadism, history of hyponatremia, and history of recurrent episodes of sep sis mostly related to urinary tract infections. And mostly related to nephrolithiasis. History of Any Multi-Drug Resistant Organisms: None Reported Past Surgical History: Orthopedic Surgery Additional Past Surgical History / Comment(s): Cystoscopy, cystourethroscopy, shockwave lithotripsy, open reduction internal fixation of right ankle open treatment of medial malleolus fracture bypass descend colon cut, colostomy inser tion of PICC lines history of buttock debridement incision and drainage and excision of buttock skin, open reduction internal fixation of tibia 01/09/20 Past Anesthesia/Blood Transfusion Reactions: No Reported Reaction Past Psychological History: Anxiety, Depression Smoking Status: Never smoker Past Alcohol Use History: None Reported Past Drug Use History: None Reported - Past Family History Sister(s) Family Medical History: Cancer Brother(s) Family Medical History: Cancer General Exam - General Exam Comments Initial Comments: PHYSICAL EXAM: General Impression: Alert and oriented, not in acute distress HEENT: Normocephalic atraumatic, extra-ocular movements intact, pupils equal and reactive to light bilaterally, mucous membranes moist. Cardiovascular: Heart regular rate and rhythm Chest: Able to complete full sentences, no retractions, no tachypnea Abdomen: abdomen soft, non-tender, non-distended, no organomegaly Musculoskeletal: Pulses present and equal in all extremities, no peripheral edema Motor: no focal deficits noted Neurological: CN II-XII grossly intact, no focal motor or sensory deficits noted Skin: Intact with no visualized rashes Psych: Normal affect and mood Limitations: altered mental status Course Vital Signs 03/18/24 12:09 Temperature 97.5 F L Pulse Rate 56 L Respiratory 16 Rate O2 Sat by Pulse 98 Oximetry - Reevaluation(s) Reevaluation #1: 03/18/24 13:02 Patient has urine culture results and sensitivities. Documentation shows that patient has Enterococcus sensitive to ampicillin and linezolid. EKG Findings - EKG Comments: EKG Findings:: My EKG interpretation: Ventricular rate 53, sinus bradycardia,. With 212, QRS 92, QTc 426. No VA prolongation, no QTC prolongation, no ST or T- wave changes noted. Overall, this EKG is unremarkable Medical Decision Making - Medical Decision Making Was pt. sent in by a medical professional or institution (, PA, FARM OPERATIONS MANAGER, urgent care, hospital, or intermediate...) When possible be specific @ -No Did you speak to anyone other than the patient for history (EMS, parent, family, police, friend...)? What history was obtained from this source @ -No Did you review nursing and triage notes (agree or disagree)? Why? @ -I reviewed and agree with nursing and triage notes Were old charts reviewed (outside hosp., previous admission, EMS record, old EKG, old radiological studies, urgent care reports/EKG's, intermediate records)? Report findings @ -No old charts were reviewed Differential Diagnosis (chest pain, altered mental status, abdominal pain women, abdominal pain men, vaginal bleeding, musculoskeletal, weakness, fever, dyspnea, syncope, headache, dizziness, GI bleed, back pain, seizure, CVA, palpatations, mental health)? @ -Differential Weakness: Hypoglycemia, shock, sepsis, hyponatremia, anemia, infection, IN, ETOH, adverse medicine reaction, overdose, stroke, this is not meant to be an all-inclusive list. EKG interpreted by me (3pts min.). @ -None done X-rays interpreted by me (1pt min.). @ -None done CT interpreted by me (1pt min.). @ -CT brain shows no acute processes. U/S interpreted by me (1pt. min.). @ -None done What testing was considered but not performed or refused? (CT, X-rays, U/S, labs)? Why? @ -None What meds were considered but not given or refused? Why? @ -None Did you discuss the management of the patient with other professionals (professionals i.e. , PA, FARM OPERATIONS MANAGER, lab, RT, psych nurse, social services, orthopedic nurse practitioner, teacher, armor officer, manager case)? Give summary @ -Case discussed with hospitalist for admission Was smoking cessation discussed for >3mins.? @ -No Was critical care preformed (if so, how long)? @ -No Were there social determinants of health that impacted care today? How? (Homelessness, low income, unemployed, alcoholism, drug addiction, transportation, low edu. Level, literacy, decrease access to med. care, assisted, rehab)? @ -No Was there de-escalation of care discussed even if they declined (Discuss DNR or withdrawal of care, Hospice)? DNR status @ -No What co-morbidities impacted this encounter? (DM, HTN, Smoking, COPD, CAD, Cancer, CVA, ARF, Chemo, Hep., AIDS, mental health diagnosis, sleep apnea, morbid obesity)? @ -None Was patient admitted / discharged? Hospital course, mention meds given and route, prescriptions, significant lab abnormalities, going to OR and other pert inent info. @ -58-year-old male with mental debility presents to the ER for lethargy and positive urine cultures for Enterococcus. Patient does have some sensitivities. Urine culture results and sensitivities were reviewed with minimal information on antimicrobial susceptibilities. Nonetheless there appears to be susceptibilities to ampicillin and linezolid. Patient started on Zosyn. Laboratory evaluation obtained. Leukopenia of 2.6, sodium 129. No lactic acidosis. Patient will be admitted with consultation to infectious disease. Undiagnosed new problem with uncertain prognosis? @ -No Drug Therapy requiring intensive monitoring for toxicity (Heparin, Nitro, Insulin, Cardizem)? @ -No Were any procedures done? @ -No Diagnosis/symptom? Acute, or Chronic, or Acute on Chronic? Uncomplicated (without systemic symptoms) or Complicated (systemic symptoms)? @ -UTI complicated by lethargy Side effects of treatment? @ -No Exacerbation, Progression, or Severe Exacerbation? @ -No Poses a threat to life or bodily function? How? (Chest pain, [place], [place], pneumonia, PE, COPD, DKA, ARF, appy, cholecystitis, CVA, Diverticulitis, Homicidal, Suicidal, threat to staff... and all critical care pts) @ -yes - Lab Data Result diagrams: 03/18/24 12:46 03/18/24 12:46 Lab Results 03/18/24 03/18/24 03/18/24 Range/Units 12:46 12:46 13:01 WBC 2.6 L (3.8-10.6) k/uL RBC 4.44 (4.30-5.90) m/uL Hgb 14.2 (13.0-17.5) gm/dL Hct 44.9 (39.0-53.0) % MCV 101.1 H (80.0-100.0) fL MCH 32.1 (25.0-35.0) pg MCHC 31.7 (31.0-37.0) g/dL RDW 12.6 (11.5-15.5) % Plt Count 124 L (150-450) k/uL MPV 7.8 Neutrophils % 42 % Lymphocytes % 43 % Monocytes % 9 % Eosinophils % 3 % Basophils % 1 % Neutrophils # 1.1 L (1.3-7.7) k/uL Lymphocytes # 1.1 (1.0-4.8) k/uL Monocytes # 0.2 (0-1.0) k/uL Eosinophils # 0.1 (0-0.7) k/uL Basophils # 0.0 (0-0.2) k/uL Sodium 129 L (137-145) mmol/L Potassium 4.2 (3.5-5.1) mmol/L Chloride 95 L (98-107) mmol/L Carbon Dioxide 30 (22-30) mmol/L Anion Gap 4 mmol/L BUN 10 (9-20) mg/dL Creatinine 0.61 L (0.66-1.25) mg/dL Est GFR (CKD-EPI)AfAm >90 (>60 ml/min/1.73 sqM) Est GFR (CKD-EPI)NonAf >90 (>60 ml/min/1.73 sqM) Glucose 88 (74-99) mg/dL Plasma Lactic Acid Keaton 1.2 (0.7-2.0) mmol/L Calcium 9.0 (8.4-10.2) mg/dL Total Bilirubin 0.7 (0.2-1.3) mg/dL AST 23 (17-59) U/L ALT 20 (4-49) U/L Alkaline Phosphatase 61 (38-126) U/L Total Protein 6.2 L (6.3-8.2) g/dL Albumin 3.9 (3.5-5.0) g/dL Disposition Clinical Impression: UTI (urinary tract infection) Disposition: ADMITTED IP TO THIS HOSP Condition: Fair Referrals: None,Stated [Primary Care Provider] - 1-2 days Decision Time: 14:50
[2024-03-18 13:12] LABS: Basophils % (A) 1 %; Eosinophils # (A) 0.1 k/uL (0-0.7); Eosinophils % (A) 3 %; HCT 44.9 % (39.0-53.0); HGB 14.2 gm/dL (13.0-17.5); Lymphocytes # (A) 1.1 k/uL (1.0-4.8); Lymphocytes % (A) 43 %; MCH 32.1 pg (25.0-35.0); MCHC 31.7 g/dL (31.0-37.0); MCV 101.1 fL (80.0-100.0); Mean Platelet Volume 7.8; Monocytes # (A) 0.2 k/uL (0-1.0); Monocytes % (A) 9 %; Neutrophils # (A) 1.1 k/uL (1.3-7.7); Neutrophils % (A) 42 %; Platelet Count 124 k/uL (150-450); RBC 4.44 m/uL (4.30-5.90); RDW 12.6 % (11.5-15.5); WBC 2.6 k/uL (3.8-10.6)
[2024-03-18 13:32] LABS: ALT 20 U/L (4-49); AST 23 U/L (17-59); African American GFR (CKD) >90 (>60 ml/min/1.73 sqM); Albumin 3.9 g/dL (3.5-5.0); Alkaline Phosphatase 61 U/L (38-126); Anion Gap 4 mmol/L; Blood Urea Nitrogen 10 mg/dL (9-20); Carbon Dioxide 30 mmol/L (22-30); Chloride 95 mmol/L (98-107); Glucose 88 mg/dL (74-99); Non-African American GFR(CKD) >90 (>60 ml/min/1.73 sqM); Potassium 4.2 mmol/L (3.5-5.1); Sodium 129 mmol/L (137-145); Total Bilirubin 0.7 mg/dL (0.2-1.3); Total Protein 6.2 g/dL (6.3-8.2)
[2024-03-18] MEDS: SODIUM CHLORIDE 0.9% 1,000 ML IV STA (13:51)
[2024-03-18] MEDS: PIPERACILLIN-TAZOBACTAM 3.375 GM in SODIUM CHLORIDE 0.9% 100 ML IVPB ONE (13:52)
[2024-03-18] MEDS ORDERED: NALOXONE 0.4 MG/ML 1 ML VIAL IV PRN (14:24)
--- NOTE | 2024-03-18 15:03 | CT ---
EXAMINATION TYPE: CT brain wo con CT DLP: 1245.4 mGycm, Automated exposure control for dose reduction was used. DATE OF EXAM: 03/18/2024 2:50 PM COMPARISON: CT brain 03/03/2024. CLINICAL INDICATION:Male, 58 years old with history of acute altered mental status, ams. Pt is chroni carole mentally impaired and non-verbal. TECHNIQUE: Brain: Axial CT images of the brain were obtained with coronal and sagittal reformats created and rev iewed. Contrast used: None. Oral contrast used: None. FINDINGS: Brain: Extra-axial spaces: No abnormal extra-axial fluid collections. Ventricular system: Within normal limits Cerebral parenchyma: No acute intraparenchymal hemorrhage or mass effect. The horton-white junction is well differentiated. Cerebellum: Unremarkable. Mass effect: No evidence of midline shift. Intracranial vasculature: unremarkable Soft tissues: Normal. Calvarium/osseous structures: No depressed skull fracture. Paranasal sinuses and mastoid air cells: Partially septated left maxillary sinus and left maxillary s inus disease is present. Visualized orbits: Right lobe contents are intact. Left globe has implant IMPRESSION: No acute intracranial process.
[2024-03-18] MEDS ORDERED: LORazepam 1 MG TAB PO PRN (15:15)
--- NOTE | 2024-03-18 15:15 | P.HPIM ---
History of Present Illness H&P Date: 03/18/24 Chief Complaint: Lethargy This is a 58-year-old white male who was admitted from assisted living because of lethargy and decreased level of consciousness. He started to have a UTI and a urinalysis performed few days ago, cultures came positive for Enterococcus sensitive to ampicillin and Zyvox. Patient has decreased oral intake and decreased appetite. He is not a very good historian at the time of examination patient's sister is at bedside. There was no reported vomiting, no hematuria or dysuria. Review of Systems Unable to fully obtain secondary to decreased level of consciousness. No reported vomiting or chest pain Past Medical History Past Medical History: Seizure Disorder Additional Past Medical History / Comment(s): Epileptic, mentally impaired, blind history of nephrolithiasis,ANITA GESTAUT SYNDROME, history of hypogonadism, history of hyponatremia, and history of recurrent episodes of sepsis mostly related to urinary tract infections. And mostly related to nephrolithiasis. History of Any Multi-Drug Resistant Organisms: None Reported Past Surgical History: Orthopedic Surgery Additional Past Surgical History / Comment(s): Cystoscopy, cystourethroscopy, shockwave lithotripsy, open reduction internal fixation of right ankle open treatment of medial malleolus fracture bypass descend colon cut, colostomy insertion of PICC lines history of buttock debridement incision and drainage and excision of buttock skin, open reduction internal fixation of tibia 01/09/20 Past Anesthesia/Blood Transfusion Reactions: No Reported Reaction Past Psychological History: Anxiety, Depression Smoking Status: Never smoker Past Alcohol Use History: None Reported Past Drug Use History: None Reported - Past Family History Sister(s) Family Medical History: Cancer Brother(s) Family Medical History: Cancer Medications and Allergies Home Medications Medication Instructions Recorded Confirmed Type Atropine Ophth Soln 1% 5Ml [Isopto 1 drops LEFT EYE HS 04/20/15 03/03/24 History Atropine 1% 5Ml] LORazepam [Ativan] 1 mg PO DIRECTED PRN 04/20/15 03/03/24 History Sodium Bicarbonate Tab 650 mg PO TID 04/20/15 03/03/24 History lamoTRIgine [LaMICtal] 25 mg PO BID 04/20/15 03/03/24 History lamoTRIgine [LaMICtal] 200 mg PO BID 04/20/15 03/03/24 History prednisoLONE ACETATE 1% OPHTH 1 drops LEFT EYE QID 04/20/15 03/03/24 History [Pred Forte 1%] Benzocaine 20 % Gel [Orajel] 1 applic TOPICAL QID PRN 02/14/22 03/03/24 History Brivaracetam [Briviact] 25 mg PO HS 02/14/22 03/03/24 History Brivaracetam [Briviact] 50 mg PO HS 02/14/22 03/03/24 History Cenobamate [Xcopri] 200 mg PO HS 02/14/22 03/03/24 History Dextrose Chew [Glucose Chew Tab] 4 gm PO DIRECTED PRN 02/14/22 03/03/24 History Divalproex ER [Depakote ER] 1,000 mg PO HS 02/14/22 03/03/24 History Divalproex ER [Depakote ER] 250 mg PO HS 02/14/22 03/03/24 History Ergocalciferol [Vitamin D2 (1250 1,250 mcg PO WE 02/14/22 03/03/24 History Mcg = 79639 Iu)] Folic Acid 1 mg PO HS 02/14/22 03/03/24 History Ibuprofen [Motrin Ib] 400 mg PO Q4H PRN 02/14/22 03/03/24 History Lactulose 20 gm PO DAILY 02/14/22 03/03/24 History Levothyroxine Sodium [Synthroid] 75 mcg PO DAILY 02/14/22 03/03/24 History Magnesium Hydroxide [Milk of 2,400 mg PO HS 02/14/22 03/03/24 History Magnesia] OXcarbazepine [Oxtellar Xr] 1,200 mg PO HS 02/14/22 03/03/24 History Omeprazole 40 mg PO DAILY 02/14/22 03/03/24 History Potassium Chloride ER [K-Dur 10] 10 meq PO DAILY 02/14/22 03/03/24 History Sennosides [Senna] 17.2 mg PO HS 02/14/22 03/03/24 History Sertraline [Zoloft] 100 mg PO DAILY 02/14/22 03/03/24 History Tamsulosin [Flomax] 0.4 mg PO DAILY 02/14/22 03/03/24 History polyethylene glycoL 3350 [Miralax] 17 gm PO DAILY 02/14/22 03/03/24 History risperiDONE [RisperDAL] 3 mg PO HS 02/14/22 03/03/24 History risperiDONE [RisperDAL] 4 mg PO DAILY 02/14/22 03/03/24 History Acetaminophen Tab [Tylenol] 325 mg PO DIRECTED PRN 03/03/24 03/03/24 History Lactose-Reduced Food [Boost] 1 can PO BID 03/03/24 03/03/24 History Propranolol [Inderal] 40 mg PO PC-SUPPER 03/03/24 03/03/24 History Sodium Chloride Tab 1 gm PO DAILY 03/03/24 03/03/24 History guaiFENesin-DM 100-10MG/5ML 10 ml PO Q4H PRN MDD 6 DOSES/24 HRS 03/03/24 03/03/24 History [Robitussin DM] Allergies Allergy/AdvReac Type Severity Reaction Status Date / Time No Known Allergies Allergy Verified 03/18/24 12:15 Physical Exam Vitals: Vital Signs Temp Pulse Resp Pulse Ox 03/18/24 12:09 97.5 F L 56 L 16 98 Intake and Output 03/18/24 03/18/24 03/18/24 06:59 14:59 22:59 Other: Weight 90.718 kg Constitutional: Lethargic, decreased level of consciousness Eyes: Anicteric sclerae, moist conjunctiva, no lid-lag, PERRLA ENMT: NC/AT,Oropharynx clear, no erythema, exudates Neck:Supple, FROM, no masses, or JVD, No carotid bruits; No thyromegaly Lungs: Clear to auscultation, Clear to percussion, Normal respiratory effort, no accessory muscle use Cardiovascular: Heart regular in rate and rhythm, No murmurs, gallops, or rubs no peripheral edema Abdominal: Soft Nontender, non distended, no guarding, no rebound or rigidity, Normoactive bowel sounds No hepatomegaly, No splenomegaly, No palpable mass No abdominal wall hernia noted Skin: Normal temperature, tone, texture, turgor, No induration No subcutaneous nodules, No rash, lesions, No ulcers Extremities:No digital cyanosis No clubbing, Pedal pulses intact and symmetrical Radial pulses intact and symmetrical Normal gait and station, No calf tenderness Psychiatric: Crease level of consciousness, lethargic Results CBC & Chem 7: 03/18/24 12:46 03/18/24 12:46 Labs: Abnormal Lab Results - Last 24 Hours (Table) 03/18/24 03/18/24 Range/Units 12:46 12:46 WBC 2.6 L (3.8-10.6) k/uL MCV 101.1 H (80.0-100.0) fL Plt Count 124 L (150-450) k/uL Neutrophils # 1.1 L (1.3-7.7) k/uL Sodium 129 L (137-145) mmol/L Chloride 95 L (98-107) mmol/L Creatinine 0.61 L (0.66-1.25) mg/dL Total Protein 6.2 L (6.3-8.2) g/dL Assessment and Plan Plan: Assessment and plan: 1. Acute UTI Enterococcus: Sensitive to ampicillin and Zyvox, start Unasyn, infectious disease consultation. Supportive care. 2. History of nephrolithiasis status post lithotripsy: Supportive care, consult urology, obtain abdominal CT. 3. Leukopenia likely associated with UTI: WBC 2.6, treat underlying condition. 4. Hypovolemia with decreased oral intake: Continue normal saline at 75 mL/h. 5. Metabolic encephalopathy, acute secondary to UTI: Treat underlying condition. Pending brain CT. 6. Cognitive impairment: Continue supportive care. 7. Seizures: Continue outpatient medications. 8. Hypovolemic hyponatremia: Continue IV fluids and monitor. Disposition: Back to assisted living pending clinical progression hopefully in the next 2 to 3 days. Discussed with the patient's sister at bedside.
[2024-03-18] MEDS ORDERED: AMPICILLIN-SULBACTAM 3 GM in SODIUM CHLORIDE 0.9% 100 ML IVPB SCH (16:00)
[2024-03-18] MEDS: SODIUM CHLORIDE 0.9% 1,000 ML IV SCH (16:05)
[2024-03-18] MEDS ORDERED: AMPICILLIN-SULBACTAM 3 GM in SODIUM CHLORIDE 0.9% 50 ML IVPB SCH (18:00)
--- NOTE | 2024-03-18 18:02 | CT ---
EXAMINATION TYPE: CT abdomen pelvis w con CT DLP: 2153.4 mGycm, Automated exposure control for dose reduction was used. DATE OF EXAM: 03/18/2024 5:41 PM COMPARISON: 03/03/2024 CLINICAL INDICATION:Male, 58 years old with history of nephrolithiasis; nephrolithiasis TECHNIQUE: Axial CT abdomen pelvis w con;Sagittal and coronal reformats were created on a separate w orkstation. Contrast used:100ml mL of Isovue 300 with IV Contrast, (none if empty) Oral contrast used: without Oral Contrast (none if empty) FINDINGS: LOWER CHEST: Unremarkable ABDOMEN LIVER: Unremarkable GALLBLADDER AND BILE DUCTS: Unremarkable. PANCREAS: Unremarkable. SPLEEN: Unremarkable. ADRENAL GLANDS: Unremarkable. KIDNEYS AND URETERS: Bilateral renal calculi measuring up to 6 mm on the right and 5 mm on the left. No hydronephrosis. No ureteral calculus visualized. PELVIS BLADDER: Unremarkable REPRODUCTIVE: Unremarkable. ABDOMEN & PELVIS STOMACH AND BOWEL: No evidence of bowel obstruction. Left lower quadrant ostomy present. Decompressed distal colon. PERITONEUM/RETROPERITONEUM: No evidence of pneumoperitoneum or free fluid. VASCULATURE: No evidence of aortic aneurysm. MUSCULOSKELETAL: No acute osseous abnormalities, right hip arthroplasty hardware appears intact. LYMPH NODES: No gross evidence for lymphadenopathy. SOFT TISSUE/ABDOMINAL WALL: Unremarkable IMPRESSION: 1. No evidence for acute process. 2. Bilateral renal nonobstructing calculi.
[2024-03-18 18:39] LABS: HCT 42.3 % (39.0-53.0); HGB 13.8 gm/dL (13.0-17.5); MCH 32.8 pg (25.0-35.0); MCHC 32.7 g/dL (31.0-37.0); MCV 100.4 fL (80.0-100.0); Platelet Count 117 k/uL (150-450); RBC 4.21 m/uL (4.30-5.90); RDW 12.5 % (11.5-15.5); WBC 2.1 k/uL (3.8-10.6)
[2024-03-18 18:48] LABS: ALT 18 U/L (4-49); AST 22 U/L (17-59); African American GFR (CKD) >90 (>60 ml/min/1.73 sqM); Albumin 3.4 g/dL (3.5-5.0); Albumin/Globulin Ratio 1.5; Alkaline Phosphatase 54 U/L (38-126); Anion Gap 3 mmol/L; Blood Urea Nitrogen 8 mg/dL (9-20); Calcium 8.6 mg/dL (8.4-10.2); Carbon Dioxide 28 mmol/L (22-30); Chloride 96 mmol/L (98-107); Globulin 2.2 g/dL; Glucose 96 mg/dL (74-99); Non-African American GFR(CKD) >90 (>60 ml/min/1.73 sqM); Potassium 4.1 mmol/L (3.5-5.1); Sodium 127 mmol/L (137-145); Total Bilirubin 0.7 mg/dL (0.2-1.3); Total Protein 5.6 g/dL (6.3-8.2)
[2024-03-18 19:13] LABS: Eosinophils # (M) 0.04 k/uL (0-0.7); Monocytes # (M) 0.06 k/uL (0-1.0); Neutrophils % (M) 38 %; Nucleated Red Blood Cells 0 /100 WBC (0-0); Total Cells Counted 100
[2024-03-18 19:14] LABS: RBC Morphology Normal
[2024-03-18] MEDS ORDERED: PIPERACILLIN-TAZOBACTAM 3.375 GM in SODIUM CHLORIDE 0.9% 100 ML IVPB SCH (20:00)
[2024-03-18] MEDS: AMPICILLIN-SULBACTAM 3 GM in SODIUM CHLORIDE 0.9% 100 ML IVPB SCH ×2 (20:20→23:41)
[2024-03-18] MEDS: DIVALPROEX ER 500 MG TAB.ER.24H PO SCH (22:33)
[2024-03-18] MEDS: OXCARBAZEPINE 600 MG PO SCH (22:33)
[2024-03-18] MEDS: [UNRECOGNIZED DRUG - REMARK] PO SCH (22:33)
[2024-03-18] MEDS: Brivaracetam [Briviact] 50 MG Tablet PO SCH (22:33)
[2024-03-18] MEDS: lamoTRIgine 100 MG TAB PO SCH (22:33)
[2024-03-18] MEDS: risperiDONE 2 MG TAB PO SCH (22:33)
[2024-03-18] MEDS: lamoTRIgine 25 MG TAB PO SCH (22:33)
[2024-03-18] MEDS: DIVALPROEX ER 250 MG TAB.ER.24H PO SCH (22:33)
--- NOTE | 2024-03-18 22:43 | P.CONS ---
History of Present Illness - Reason for Consult Consult date: 03/18/24 - History of Present Illness Patient is a 58-year-old male with a past medical history significant for seizure disorder mentally impaired history of renal stones and recurrent UTI patient is a resident of an adult foster care currently recently has been diagnosed with UTI because of his decreased level of responsiveness and has been treated with a course of Cipro followed by another antibiotic patient did have repeat UA and culture done day before yesterday noticed to have a positive UA and the patient was advised to be taken to the ER to be on IV antibiotic therapy no clear history of any fever or any chills at home however the patient has been mostly lethargic and not as responsive and leaning towards 1 side as a history provided by the mother at the bedside no clear history of vomiting diarrhea and the patient has been straight cathed for his urinary symptoms no history of any G[place] catheter patient on presentation to the hospital was afebrile and no fever have recorded subsequently patient was not tachycardic hypotensive or hypoxic patient did have a white count of 2 point 6 repeat is 2.1 creatinine 0.54 liver enzymes are normal urine culture is currently pending patient has been started on Zosyn and Unasyn infectious disease was consulted for further management of antibiotic therapy the patient last urine culture done attributed to hospital was Enterococcus faecalis has reviewed all the patient mother's phone Past Medical History Past Medical History: Seizure Disorder Additional Past Medical History / Comment(s): Epileptic, mentally impaired, blind history of nephrolithiasis,ANITA GESTAUT SYNDROME, history of hypog onadism, history of hyponatremia, and history of recurrent episodes of sepsis mostly related to urinary tract infections. And mostly related to nephrolithiasis. History of Any Multi-Drug Resistant Organisms: None Reported Past Surgical History: Orthopedic Surgery Additional Past Surgical History / Comment(s): Cystoscopy, cystourethroscopy, shockwave lithotripsy, open reduction internal fixation of right ankle open treatment of medial malleolus fracture bypass descend colon cut, colostomy insertion of PICC lines history of buttock debridement incision and drainage and excision of buttock skin, open reduction internal fixation of tibia 01/09/20 Past Anesthesia/Blood Transfusion Reactions: No Reported Reaction Past Psychological History: Anxiety, Depression Smoking Status: Never smoker Past Alcohol Use History: None Reported Past Drug Use History: None Reported - Past Family History Sister(s) Family Medical History: Cancer Brother(s) Family Medical History: Cancer Mother Family Medical History: Cancer Additional Family Medical History / Comment(s): lung CA. Medications and Allergies Home Medications Medication Instructions Recorded Confirmed Type Atropine Ophth Soln 1% 5Ml [Isopto 1 drops LEFT EYE HS 04/20/15 03/18/24 History Atropine 1% 5Ml] LORazepam [Ativan] 1 mg PO DIRECTED PRN 04/20/15 03/18/24 History Sodium Bicarbonate Tab 650 mg PO TID@0800,1700,199904/20/15 03/18/24 History lamoTRIgine [LaMICtal] 25 mg PO BID@0800,199904/20/15 03/18/24 History lamoTRIgine [LaMICtal] 200 mg PO BID@0800,199904/20/15 03/18/24 History prednisoLONE ACETATE 1% OPHTH 1 drops LEFT EYE QID 04/20/15 03/18/24 History [Pred Forte 1%] Benzocaine 20 % Gel [Orajel] 1 applic TOPICAL QID PRN 02/14/22 03/18/24 History Brivaracetam [Briviact] 25 mg PO HS@199902/14/22 03/18/24 History Brivaracetam [Briviact] 50 mg PO HS@199902/14/22 03/18/24 History Cenobamate [Xcopri] 200 mg PO HS@199902/14/22 03/18/24 History Dextrose Chew [Glucose Chew Tab] 4 gm PO DIRECTED PRN 02/14/22 03/18/24 History Divalproex ER [Depakote ER] 1,000 mg PO HS@199902/14/22 03/18/24 History Divalproex ER [Depakote ER] 250 mg PO HS@199902/14/22 03/18/24 History Ergocalciferol [Vitamin D2 (1250 1,250 mcg PO WE@0800 02/14/22 03/18/24 History Mcg = 05999 Iu)] Folic Acid 1 mg PO HS@199902/14/22 03/18/24 History Ibuprofen [Motrin Ib] 400 mg PO Q4H PRN 02/14/22 03/18/24 History Lactulose 20 gm PO DAILY@0800 02/14/22 03/18/24 History Levothyroxine Sodium [Synthroid] 75 mcg PO DAILY@0800 02/14/22 03/18/24 History Magnesium Hydroxide [Milk of 2,400 mg PO HS 02/14/22 03/18/24 History Magnesia] OXcarbazepine [Oxtellar Xr] 1,200 mg PO HS@199902/14/22 03/18/24 History Omeprazole 40 mg PO DAILY@0800 02/14/22 03/18/24 History Potassium Chloride ER [K-Dur 10] 10 meq PO DAILY@1700 02/14/22 03/18/24 History Sennosides [Senna] 17.2 mg PO HS@199902/14/22 03/18/24 History Sertraline [Zoloft] 100 mg PO DAILY@0800 02/14/22 03/18/24 History Tamsulosin [Flomax] 0.4 mg PO DAILY 02/14/22 03/18/24 History polyethylene glycoL 3350 [Miralax] 17 gm PO DAILY@0800 02/14/22 03/18/24 History risperiDONE [RisperDAL] 3 mg PO HS@199902/14/22 03/18/24 History risperiDONE [RisperDAL] 4 mg PO DAILY@0802/14/22 03/18/24 History Acetaminophen Tab [Tylenol] 325 mg PO DIRECTED PRN 03/03/24 03/18/24 History Lactose-Reduced Food [Boost] 1 can PO BID@0800,1200 03/03/24 03/18/24 History Propranolol [Inderal] 40 mg PO PC-SUPPER 03/03/24 03/18/24 History Sodium Chloride Tab 1 gm PO DAILY@1700 03/03/24 03/18/24 History guaiFENesin-DM 100-10MG/5ML 10 ml PO Q4H PRN MDD 6 DOSES/24 HRS 03/03/24 03/18/24 History [Robitussin DM] Allergies Allergy/AdvReac Type Severity Reaction Status Date / Time No Known Allergies Allergy Verified 03/18/24 16:04 Physical Exam Vitals: Vital Signs Temp Pulse Resp Pulse Ox 03/18/24 12:09 97.5 F L 56 L 16 98 Intake and Output 03/18/24 03/18/24 03/18/24 06:59 14:59 22:59 Other: Weight 90.718 kg Results CBC & Chem 7: 03/18/24 17:50 03/18/24 17:50 Labs: Abnormal Lab Results - Last 24 Hours (Table) 03/18/24 03/18/24 Range/Units 12:46 12:46 WBC 2.6 L (3.8-10.6) k/uL MCV 101.1 H (80.0-100.0) fL Plt Count 124 L (150-450) k/uL Neutrophils # 1.1 L (1.3-7.7) k/uL Sodium 129 L (137-145) mmol/L Chloride 95 L (98-107) mmol/L Creatinine 0.61 L (0.66-1.25) mg/dL Total Protein 6.2 L (6.3-8.2) g/dL Assessment and Plan Plan: 1patient presented to hospital with weakness lethargy and this patient noted to have a history of kidney stone and recurrent UTI with the last urine culture done at [facility] was Enterococcus faecalis failing outpatient antibiotic therapy 2-patient to continue with Unasyn 3 g every 6 hours while waiting for the urine culture to finalize however discontinue Zosyn 3-we will check ultrasound kidney bladder to make sure no evidence of any hydronephrosis responsible for his recurrent UTI Mother at the bedside multiple question concern answered We will follow on clinical condition and cultures to further adjust medication if needed Thank you for this consultation we will follow the patient along with you Dictation was produced using [employer] dictation software. please excuse any grammatical, word or spelling errors. Time with Patient: Greater than 30
[2024-03-19 00:01] LABS: Appearance,Urine Clear (Clear); Bilirubin,Urine Negative (Negative); Blood,Urine Negative (Negative); Color,Urine Yellow; Glucose,Urine (UA) Negative (Negative); Ketones,Urine Negative (Negative); Leukocyte Esterase,Urine Negative (Negative); Nitrite,Urine Negative (Negative); PH, Urine 8.5 (5.0-8.0); Protein,Urine Negative (Negative); Urobilinogen,Urine <2.0 mg/dL (<2.0)
[2024-03-19 01:04] LABS: Specific Gravity,Urine 1.047 (1.001-1.035)
[2024-03-19 05:23] LABS: Basophils % (A) 1 %; Eosinophils # (A) 0.1 k/uL (0-0.7); Eosinophils % (A) 3 %; HCT 42.5 % (39.0-53.0); HGB 13.4 gm/dL (13.0-17.5); Lymphocytes # (A) 1.2 k/uL (1.0-4.8); Lymphocytes % (A) 44 %; MCH 31.8 pg (25.0-35.0); MCHC 31.6 g/dL (31.0-37.0); MCV 100.6 fL (80.0-100.0); Monocytes # (A) 0.3 k/uL (0-1.0); Monocytes % (A) 10 %; Neutrophils # (A) 1.1 k/uL (1.3-7.7); Neutrophils % (A) 41 %; Platelet Count 128 k/uL (150-450); RBC 4.22 m/uL (4.30-5.90); RDW 12.6 % (11.5-15.5); WBC 2.7 k/uL (3.8-10.6)
[2024-03-19 05:36] LABS: ALT 17 U/L (4-49); AST 20 U/L (17-59); African American GFR (CKD) >90 (>60 ml/min/1.73 sqM); Albumin 3.6 g/dL (3.5-5.0); Albumin/Globulin Ratio 1.8; Alkaline Phosphatase 51 U/L (38-126); Anion Gap 6 mmol/L; Blood Urea Nitrogen 7 mg/dL (9-20); Calcium 8.6 mg/dL (8.4-10.2); Carbon Dioxide 22 mmol/L (22-30); Chloride 97 mmol/L (98-107); Glucose 89 mg/dL (74-99); Non-African American GFR(CKD) >90 (>60 ml/min/1.73 sqM); Potassium 4.1 mmol/L (3.5-5.1); Sodium 125 mmol/L (137-145); Total Bilirubin 0.6 mg/dL (0.2-1.3); Total Protein 5.6 g/dL (6.3-8.2)
[2024-03-19] MEDS: LEVOTHYROXINE 75 MCG TAB PO SCH (05:47)
--- NOTE | 2024-03-19 08:07 | US ---
EXAMINATION TYPE: US kidneys/renal and bladder DATE OF EXAM: 03/19/2024 COMPARISON: CT 03/18/2024 CLINICAL INDICATION: Male, 58 years old with history of uti and bacteremia; UTI and bacteremia. EXAM MEASUREMENTS: Right Kidney: 12.3 x 6.7 x 7.0 cm Left Kidney: 11.8 x 6.3 x 6.8 cm Right Kidney: No hydronephrosis or masses seen Left Kidney: *Hyperechoic focus seen at the upper pole: 1.0 x 0.8 x 0.5 cm. Bladder: Not fully distended, appears anechoic. Bilateral Jets seen: No, only left jet seen during exam. IMPRESSION: 1. No evidence for obstructive uropathy. 2. Left nonobstructing calculus.
[2024-03-19] MEDS: risperiDONE 2 MG TAB PO SCH (08:52)
[2024-03-19] MEDS: SERTRALINE 100 MG TAB PO SCH (08:52)
[2024-03-19] MEDS: PANTOPRAZOLE 40 MG TABLET PO SCH (08:52)
[2024-03-19] MEDS: TAMSULOSIN 0.4 MG CAP.ER.24H PO SCH (08:52)
[2024-03-19] MEDS ORDERED: CENOBAMATE PO SCH (09:10)
--- NOTE | 2024-03-19 11:28 | P.PN ---
Subjective Progress Note Date: 03/19/24 Remains lethargic but afebrile, no reported diarrhea or vomiting. Objective - Vital Signs Vital signs: Vital Signs Temp 97.8 F 03/19/24 07:38 Pulse 53 L 03/19/24 07:38 Resp 18 03/19/24 07:38 BP 129/65 03/19/24 07:38 Pulse Ox 100 03/19/24 07:38 FiO2 Intake & Output 03/18/24 03/19/24 03/19/24 18:59 06:59 18:59 Output Total 250 Balance -250 Weight 90.718 kg 90.718 kg Output: Urine 250 Other: Voiding Method Diaper External Catheter # Voids 1 - Exam Constitutional: Lethargic, decreased level of consciousness Eyes: Anicteric sclerae, moist conjunctiva, no lid-lag, PERRLA ENMT: NC/AT,Oropharynx clear, no erythema, exudates Neck:Supple, FROM, no masses, or JVD, No carotid bruits; No thyromegaly Lungs: Clear to auscultation, Clear to percussion, Normal respiratory effort, no accessory muscle use Cardiovascular: Heart regular in rate and rhythm, No murmurs, gallops, or rubs no peripheral edema Abdominal: Soft Nontender, non distended, no guarding, no rebound or rigidity, Normoactive bowel sounds No hepatomegaly, No splenomegaly, No palpable mass No abdominal wall hernia noted Skin: Normal temperature, tone, texture, turgor, No induration No subcutaneous nodules, No rash, lesions, No ulcers Extremities:No digital cyanosis No clubbing, Pedal pulses intact and symmetrical Radial pulses intact and symmetrical Normal gait and station, No calf tenderness Psychiatric: decrease level of consciousness, lethargic - Labs CBC & Chem 7: 03/19/24 04:59 03/19/24 04:59 Labs: Abnormal Lab Results - Last 24 Hours (Table) 03/18/24 03/18/24 03/18/24 Range/Units 12:46 12:46 17:50 WBC 2.6 L 2.1 L (3.8-10.6) k/uL RBC 4.21 L (4.30-5.90) m/uL MCV 101.1 H 100.4 H (80.0-100.0) fL Plt Count 124 L 117 L (150-450) k/uL Neutrophils # 1.1 L (1.3-7.7) k/uL Neutrophils # (Manual) 0.80 L (1.3-7.7) k/uL Sodium 129 L (137-145) mmol/L Chloride 95 L (98-107) mmol/L BUN (9-20) mg/dL Creatinine 0.61 L (0.66-1.25) mg/dL Total Protein 6.2 L (6.3-8.2) g/dL Albumin (3.5-5.0) g/dL Urine pH (5.0-8.0) Ur Specific [place] (1.001-1.035) 03/18/24 03/18/24 03/19/24 Range/Units 17:50 23:45 04:59 WBC 2.7 L (3.8-10.6) k/uL RBC 4.22 L (4.30-5.90) m/uL MCV 100.6 H (80.0-100.0) fL Plt Count 128 L (150-450) k/uL Neutrophils # 1.1 L (1.3-7.7) k/uL Neutrophils # (Manual) (1.3-7.7) k/uL Sodium 127 L (137-145) mmol/L Chloride 96 L (98-107) mmol/L BUN 8 L (9-20) mg/dL Creatinine 0.54 L (0.66-1.25) mg/dL Total Protein 5.6 L (6.3-8.2) g/dL Albumin 3.4 L (3.5-5.0) g/dL Urine pH 8.5 H (5.0-8.0) Ur Specific [place] 1.047 H (1.001-1.035) 03/19/24 Range/Units 04:59 WBC (3.8-10.6) k/uL RBC (4.30-5.90) m/uL MCV (80.0-100.0) fL Plt Count (150-450) k/uL Neutrophils # (1.3-7.7) k/uL Neutrophils # (Manual) (1.3-7.7) k/uL Sodium 125 L (137-145) mmol/L Chloride 97 L (98-107) mmol/L BUN 7 L (9-20) mg/dL Creatinine 0.55 L (0.66-1.25) mg/dL Total Protein 5.6 L (6.3-8.2) g/dL Albumin (3.5-5.0) g/dL Urine pH (5.0-8.0) Ur Specific [place] (1.001-1.035) Assessment and Plan Plan: Assessment and plan: 1. Acute UTI Enterococcus: Sensitive to ampicillin and Zyvox, started Unasyn, infectious disease consultation. Input appreciated supportive care. 2. History of nephrolithiasis status post lithotripsy: Supportive care, consult urology, obtained abdominal CT and ultrasound. No evidence of obstruction. 3. Leukopenia likely associated with UTI: WBC 2.6, treat underlying condition. 4. Hypovolemia with decreased oral intake with hyponatremia: Continue normal saline at 75 mL/h. Sodium down to 125. 5. Metabolic encephalopathy, acute secondary to UTI: Treat underlying condition. Brain CT no acute findings 6. Cognitive impairment: Continue supportive care. 7. Seizures: Continue outpatient medications. 8. Hypovolemic hyponatremia: Continue IV fluids and monitor. 9. Thrombocytopenia: Fluctuates, platelets up to 128 Disposition: Back to assisted living pending clinical progression hopefully in the next 2 to 3 days.
--- NOTE | 2024-03-19 16:08 | XR ---
EXAMINATION TYPE: XR chest 1V portable DATE OF EXAM: 03/19/2024 3:22 PM CLINICAL INDICATION:Male, 58 years old with history of cough; COMPARISON: Chest radiographs from 03/03/2024 TECHNIQUE: XR chest 1V portable Frontal view of the chest. FINDINGS: Lungs/Pleura: Elevated left diaphragm. There is no evidence of pleural effusion, focal consolidation, or pneumothorax. Pulmonary vascularity: Unremarkable. Heart/mediastinum: Cardiomediastinal silhouette is unremarkable. Musculoskeletal: No acute osseous pathology. IMPRESSION: 1. Low lung volumes with a generalized hazy appearance which could represent atelectasis . 2. Elevated left diaphragm.
--- NOTE | 2024-03-19 18:16 | P.GSCN ---
History of Present Illness Consult date: 03/19/24 Reason for Consult: Bilateral renal stones History of present illness: 58-year-old male with history of mental developmental delay, patient of Dr. Johnson admitted to the hospital for failed outpatient treatment for Enterococcus UTI. Urology is consulted for finding of bilateral kidney stones. He does have history of recurrent UTIs, but per patient mom she has is not had a UTI in over 2-1/2 years prior to this episode. Does have previous history of kidney stones which required ESWL and ureteroscopy with holmium laser. Patient is nonverbal but no evidence of gross hematuria or flank pain. He underwent a CT abdomen and pelvis on presentation that showed evidence of bilateral 5 mm renal stones but no hydronephrosis. No evidence of ureteral stones or any abnormality within the bladder Review of Systems ROS unobtainable: due to mental status Past Medical History Past Medical History: Seizure Disorder Additional Past Medical History / Comment(s): Epileptic, mentally impaired, blind history of nephrolithiasis,ANITA GESTAUT SYNDROME, history of hypogonadism, history of hyponatremia, and history of recurrent episodes of sep sis mostly related to urinary tract infections. And mostly related to nephrolithiasis. History of Any Multi-Drug Resistant Organisms: None Reported Year Discovered:: 02/05/24 MDRO Source:: Buttock abcess. Past Surgical History: Orthopedic Surgery Additional Past Surgical History / Comment(s): Cystoscopy, cystourethroscopy, shockwave lithotripsy, open reduction internal fixation of right ankle open treatment of medial malleolus fracture bypass descend colon cut, colostomy insertion of PICC lines history of buttock debridement incision and drainage and excision of buttock skin, open reduction internal fixation of tibia 01/09/20 Past Anesthesia/Blood Transfusion Reactions: No Reported Reaction Past Psychological History: Anxiety, Depression Smoking Status: Never smoker Past Alcohol Use History: None Reported Past Drug Use History: None Reported - Past Family History Sister(s) Family Medical History: Cancer Additional Family Medical History / Comment(s): uturine CA. Brother(s) Family Medical History: Cancer Additional Family Medical History / Comment(s): renal CA. Mother Family Medical History: Cancer Additional Family Medical History / Comment(s): lung CA. Medications and Allergies Home Medications Medication Instructions Recorded Confirmed Type Atropine Ophth Soln 1% 5Ml [Isopto 1 drops LEFT EYE HS 04/20/15 03/18/24 History Atropine 1% 5Ml] LORazepam [Ativan] 1 mg PO DIRECTED PRN 04/20/15 03/18/24 History Sodium Bicarbonate Tab 650 mg PO TID@0800,1700,199904/20/15 03/18/24 History lamoTRIgine [LaMICtal] 25 mg PO BID@0800,199904/20/15 03/18/24 History lamoTRIgine [LaMICtal] 200 mg PO BID@0800,199904/20/15 03/18/24 History prednisoLONE ACETATE 1% OPHTH 1 drops LEFT EYE QID 04/20/15 03/18/24 History [Pred Forte 1%] Benzocaine 20 % Gel [Orajel] 1 applic TOPICAL QID PRN 02/14/22 03/18/24 History Brivaracetam [Briviact] 25 mg PO HS@199902/14/22 03/18/24 History Brivaracetam [Briviact] 50 mg PO HS@199902/14/22 03/18/24 History Cenobamate [Xcopri] 200 mg PO HS@199902/14/22 03/18/24 History Dextrose Chew [Glucose Chew Tab] 4 gm PO DIRECTED PRN 02/14/22 03/18/24 History Divalproex ER [Depakote ER] 1,000 mg PO HS@199902/14/22 03/18/24 History Divalproex ER [Depakote ER] 250 mg PO HS@199902/14/22 03/18/24 History Ergocalciferol [Vitamin D2 (1250 1,250 mcg PO WE@79902/14/22 03/18/24 History Mcg = 45939 Iu)] Folic Acid 1 mg PO HS@199902/14/22 03/18/24 History Ibuprofen [Motrin Ib] 400 mg PO Q4H PRN 02/14/22 03/18/24 History Lactulose 20 gm PO DAILY@0800 02/14/22 03/18/24 History Levothyroxine Sodium [Synthroid] 75 mcg PO DAILY@0800 02/14/22 03/18/24 History Magnesium Hydroxide [Milk of 2,400 mg PO HS 02/14/22 03/18/24 History Magnesia] OXcarbazepine [Oxtellar Xr] 1,200 mg PO HS@199902/14/22 03/18/24 History Omeprazole 40 mg PO DAILY@0800 02/14/22 03/18/24 History Potassium Chloride ER [K-Dur 10] 10 meq PO DAILY@1700 02/14/22 03/18/24 History Sennosides [Senna] 17.2 mg PO HS@199902/14/22 03/18/24 History Sertraline [Zoloft] 100 mg PO DAILY@0800 02/14/22 03/18/24 History Tamsulosin [Flomax] 0.4 mg PO DAILY 02/14/22 03/18/24 History polyethylene glycoL 3350 [Miralax] 17 gm PO DAILY@0800 02/14/22 03/18/24 History risperiDONE [RisperDAL] 3 mg PO HS@199902/14/22 03/18/24 History risperiDONE [RisperDAL] 4 mg PO DAILY@0800 02/14/22 03/18/24 History Acetaminophen Tab [Tylenol] 325 mg PO DIRECTED PRN 03/03/24 03/18/24 History Lactose-Reduced Food [Boost] 1 can PO BID@0800,1200 03/03/24 03/18/24 History Propranolol [Inderal] 40 mg PO PC-SUPPER 03/03/24 03/18/24 History Sodium Chloride Tab 1 gm PO DAILY@1700 03/03/24 03/18/24 History guaiFENesin-DM 100-10MG/5ML 10 ml PO Q4H PRN MDD 6 DOSES/24 HRS 03/03/24 03/18/24 History [Robitussin DM] Allergies Allergy/AdvReac Type Severity Reaction Status Date / Time No Known Allergies Allergy Verified 03/18/24 16:04 Surgical - Exam Vital Signs Temp Pulse Resp Pulse Ox 97.5 F L 56 L 16 98 03/18/24 12:09 03/18/24 12:09 03/18/24 12:09 03/18/24 12:09 - General no distress, no pain - Respiratory normal expansion, normal respiratory effort - Abdomen Abdomen: soft, non tender, no distended Results - Labs 03/19/24 04:59 03/19/24 04:59 Abnormal Lab Results - Last 24 Hours (Table) 03/18/24 03/18/24 03/18/24 Range/Units 12:46 12:46 17:50 WBC 2.6 L 2.1 L (3.8-10.6) k/uL RBC 4.21 L (4.30-5.90) m/uL MCV 101.1 H 100.4 H (80.0-100.0) fL Plt Count 124 L 117 L (150-450) k/uL Neutrophils # 1.1 L (1.3-7.7) k/uL Neutrophils # (Manual) 0.80 L (1.3-7.7) k/uL Sodium 129 L (137-145) mmol/L Chloride 95 L (98-107) mmol/L BUN (9-20) mg/dL Creatinine 0.61 L (0.66-1.25) mg/dL Total Protein 6.2 L (6.3-8.2) g/dL Albumin (3.5-5.0) g/dL Urine pH (5.0-8.0) Ur Specific [place] (1.001-1.035) 03/18/24 03/18/24 03/19/24 Range/Units 17:50 23:45 04:59 WBC 2.7 L (3.8-10.6) k/uL RBC 4.22 L (4.30-5.90) m/uL MCV 100.6 H (80.0-100.0) fL Plt Count 128 L (150-450) k/uL Neutrophils # 1.1 L (1.3-7.7) k/uL Neutrophils # (Manual) (1.3-7.7) k/uL Sodium 127 L (137-145) mmol/L Chloride 96 L (98-107) mmol/L BUN 8 L (9-20) mg/dL Creatinine 0.54 L (0.66-1.25) mg/dL Total Protein 5.6 L (6.3-8.2) g/dL Albumin 3.4 L (3.5-5.0) g/dL Urine pH 8.5 H (5.0-8.0) Ur Specific [place] 1.047 H (1.001-1.035) 03/19/24 Range/Units 04:59 WBC (3.8-10.6) k/uL RBC (4.30-5.90) m/uL MCV (80.0-100.0) fL Plt Count (150-450) k/uL Neutrophils # (1.3-7.7) k/uL Neutrophils # (Manual) (1.3-7.7) k/uL Sodium 125 L (137-145) mmol/L Chloride 97 L (98-107) mmol/L BUN 7 L (9-20) mg/dL Creatinine 0.55 L (0.66-1.25) mg/dL Total Protein 5.6 L (6.3-8.2) g/dL Albumin (3.5-5.0) g/dL Urine pH (5.0-8.0) Ur Specific [place] (1.001-1.035) Diabetes panel 03/18/24 03/18/24 03/19/24 Range/Units 12:46 17:50 04:59 Sodium 129 L 127 L 125 L (137-145) mmol/L Potassium 4.2 4.1 4.1 (3.5-5.1) mmol/L Chloride 95 L 96 L 97 L (98-107) mmol/L Carbon Dioxide 30 28 22 (22-30) mmol/L BUN 10 8 L 7 L (9-20) mg/dL Creatinine 0.61 L 0.54 L 0.55 L (0.66-1.25) mg/dL Glucose 88 96 89 (74-99) mg/dL Calcium 9.0 8.6 8.6 (8.4-10.2) mg/dL AST 23 22 20 (17-59) U/L ALT 20 18 17 (4-49) U/L Alkaline Phosphatase 61 54 51 (38-126) U/L Total Protein 6.2 L 5.6 L 5.6 L (6.3-8.2) g/dL Albumin 3.9 3.4 L 3.6 (3.5-5.0) g/dL Calcium panel 03/18/24 03/18/24 03/19/24 Range/Units 12:46 17:50 04:59 Calcium 9.0 8.6 8.6 (8.4-10.2) mg/dL Albumin 3.9 3.4 L 3.6 (3.5-5.0) g/dL Pituitary panel 03/18/24 03/18/24 03/19/24 Range/Units 12:46 17:50 04:59 Sodium 129 L 127 L 125 L (137-145) mmol/L Potassium 4.2 4.1 4.1 (3.5-5.1) mmol/L Chloride 95 L 96 L 97 L (98-107) mmol/L Carbon Dioxide 30 28 22 (22-30) mmol/L BUN 10 8 L 7 L (9-20) mg/dL Creatinine 0.61 L 0.54 L 0.55 L (0.66-1.25) mg/dL Glucose 88 96 89 (74-99) mg/dL Calcium 9.0 8.6 8.6 (8.4-10.2) mg/dL Adrenal panel 03/18/24 03/18/24 03/19/24 Range/Units 12:46 17:50 04:59 Sodium 129 L 127 L 125 L (137-145) mmol/L Potassium 4.2 4.1 4.1 (3.5-5.1) mmol/L Chloride 95 L 96 L 97 L (98-107) mmol/L Carbon Dioxide 30 28 22 (22-30) mmol/L BUN 10 8 L 7 L (9-20) mg/dL Creatinine 0.61 L 0.54 L 0.55 L (0.66-1.25) mg/dL Glucose 88 96 89 (74-99) mg/dL Calcium 9.0 8.6 8.6 (8.4-10.2) mg/dL Total Bilirubin 0.7 0.7 0.6 (0.2-1.3) mg/dL AST 23 22 20 (17-59) U/L ALT 20 18 17 (4-49) U/L Alkaline Phosphatase 61 54 51 (38-126) U/L Total Protein 6.2 L 5.6 L 5.6 L (6.3-8.2) g/dL Albumin 3.9 3.4 L 3.6 (3.5-5.0) g/dL - Imaging CT scan - abdomen: image reviewed (Bilateral renal stones in the midpole each measuring 5 mm, no hydronephrosis or ureteral stones visualized) Assessment and Plan Assessment: This is a 58-year-old male with with bilateral renal stones and Enterococcus UTI, given that this is his first UTI in 2-1/2 years and the stones are nonobstructive no intervention is needed at the current time, he can follow-up as an outpatient for Dr. Johnson he is a well-known patient to Dr. Pandey. If patient continues to have recurrent UTIs then we can address the stones as an outpatient -No acute surgical intervention from urology standpoint, can follow-up with as an outpatient
[2024-03-19] MEDS: CENOBAMATE 200 MG PO SCH (20:04)
--- NOTE | 2024-03-19 22:27 | P.PN ---
Subjective Progress Note Date: 03/19/24 Principal diagnosis: Reason for follow-up is recurrent urinary tract infection Patient is a 58-year-old male with a past medical history significant for seizure disorder mentally impaired history of renal stones and recurrent UTI patient is a resident of an adult foster care has been sent to the hospital concerning for UTI not responding to the outpatient oral antibiotic therapy with the last outpatient urine culture was Enterococcus faecalis. On today's evaluation that is 03/19/2024 patient remains to be afebrile patient is breathing comfortably currently on room air not requiring supplemental oxygen patient remains to be slightly lethargic per the mother at the bedside also evaluated by speech pathology concern about his swallowing however no overt choking has been noticed or any diarrhea. Patient white count is 2.7 creatinine 0.5-UA has been negative abdominal bladder ultrasound as well as CT did shows evidence of kidney stone Objective - Vital Signs Vital signs: Vital Signs Temp 97.5 F L 03/19/24 12:35 Pulse 64 03/19/24 12:35 Resp 18 03/19/24 12:35 BP 124/75 03/19/24 12:35 Pulse Ox 99 03/19/24 12:35 FiO2 Intake & Output 03/18/24 03/19/24 03/19/24 18:59 06:59 18:59 Output Total 250 Balance -250 Weight 90.718 kg 90.718 kg Output: Urine 250 Other: Voiding Method Diaper Diaper External Catheter External Catheter # Voids 1 - Exam GENERAL DESCRIPTION: Middle-age male lying in bed in no distress RESPIRATORY SYSTEM: Unlabored breathing , decreased breath sounds at bases HEART: S1 S2 regular rate and rhythm , ABDOMEN: Soft , no tenderness EXTREMITIES: No edema feet - Labs CBC & Chem 7: 03/19/24 04:59 03/19/24 04:59 Labs: Abnormal Lab Results - Last 24 Hours (Table) 03/18/24 03/18/24 03/18/24 Range/Units 12:46 12:46 17:50 WBC 2.6 L 2.1 L (3.8-10.6) k/uL RBC 4.21 L (4.30-5.90) m/uL MCV 101.1 H 100.4 H (80.0-100.0) fL Plt Count 124 L 117 L (150-450) k/uL Neutrophils # 1.1 L (1.3-7.7) k/uL Neutrophils # (Manual) 0.80 L (1.3-7.7) k/uL Sodium 129 L (137-145) mmol/L Chloride 95 L (98-107) mmol/L BUN (9-20) mg/dL Creatinine 0.61 L (0.66-1.25) mg/dL Total Protein 6.2 L (6.3-8.2) g/dL Albumin (3.5-5.0) g/dL Urine pH (5.0-8.0) Ur Specific [place] (1.001-1.035) 03/18/24 03/18/24 03/19/24 Range/Units 17:50 23:45 04:59 WBC 2.7 L (3.8-10.6) k/uL RBC 4.22 L (4.30-5.90) m/uL MCV 100.6 H (80.0-100.0) fL Plt Count 128 L (150-450) k/uL Neutrophils # 1.1 L (1.3-7.7) k/uL Neutrophils # (Manual) (1.3-7.7) k/uL Sodium 127 L (137-145) mmol/L Chloride 96 L (98-107) mmol/L BUN 8 L (9-20) mg/dL Creatinine 0.54 L (0.66-1.25) mg/dL Total Protein 5.6 L (6.3-8.2) g/dL Albumin 3.4 L (3.5-5.0) g/dL Urine pH 8.5 H (5.0-8.0) Ur Specific [place] 1.047 H (1.001-1.035) 03/19/24 Range/Units 04:59 WBC (3.8-10.6) k/uL RBC (4.30-5.90) m/uL MCV (80.0-100.0) fL Plt Count (150-450) k/uL Neutrophils # (1.3-7.7) k/uL Neutrophils # (Manual) (1.3-7.7) k/uL Sodium 125 L (137-145) mmol/L Chloride 97 L (98-107) mmol/L BUN 7 L (9-20) mg/dL Creatinine 0.55 L (0.66-1.25) mg/dL Total Protein 5.6 L (6.3-8.2) g/dL Albumin (3.5-5.0) g/dL Urine pH (5.0-8.0) Ur Specific [place] (1.001-1.035) Assessment and Plan (1) Recurrent UTI Current Visit: Yes Status: Acute Code(s): N39.0 - URINARY TRACT INFECTION, SITE NOT SPECIFIED SNOMED Code(s): 254308291 (2) Renal stones Current Visit: Yes Status: Acute Code(s): N20.0 - CALCULUS OF KIDNEY SNOMED Code(s): 12781168 (3) Weakness Current Visit: No Status: Acute Code(s): R53.1 - WEAKNESS SNOMED Code(s): 57301621 Plan: 1patient presented to hospital with weakness lethargy and this patient noted to have a history of kidney stone and recurrent UTI with the last urine culture done at [facility] was Enterococcus faecalis failing outpatient antibiotic therapy 2-- ultrasound kidney bladder did shows evidence of bilateral renal stones but no hydronephrosis patient has been eval by urology not recommending any intervention at this point 3-patient UA has been negative however the patient is more lethargic and seem to have issues with the swallowing per the speech pathology with a question of aspiration pneumonitis we will check a chest x-ray and a procalcitonin continue with Unasyn Mother at the bedside questions were answered Dictation was produced using [employer] dictation software. please excuse any grammatical, word or spelling errors. Time with Patient: Less than 30
--- NOTE | 2024-03-20 10:49 | P.PN ---
Subjective Progress Note Date: 03/20/24 More awake this morning, no reported vomiting, no diarrhea. Objective - Vital Signs Vital signs: Vital Signs Temp 97.8 F 03/20/24 00:51 Pulse 60 03/20/24 07:38 Resp 16 03/20/24 07:38 BP 105/71 03/20/24 07:38 Pulse Ox 96 03/20/24 07:38 FiO2 Intake & Output 03/19/24 03/20/24 03/20/24 18:59 06:59 18:59 Output Total 600 1800 Balance -600 -1800 Output: Urine 500 1800 Stool 100 Other: Voiding Method Diaper Diaper External Catheter External Catheter - Exam Constitutional: Lethargic, decreased level of consciousness Eyes: Anicteric sclerae, moist conjunctiva, no lid-lag, PERRLA ENMT: NC/AT,Oropharynx clear, no erythema, exudates Neck:Supple, FROM, no masses, or JVD, No carotid bruits; No thyromegaly Lungs: Clear to auscultation, Clear to percussion, Normal respiratory effort, no accessory muscle use Cardiovascular: Heart regular in rate and rhythm, No murmurs, gallops, or rubs no peripheral edema Abdominal: Soft Nontender, non distended, no guarding, no rebound or rigidity, Normoactive bowel sounds No hepatomegaly, No splenomegaly, No palpable mass No abdominal wall hernia noted Skin: Normal temperature, tone, texture, turgor, No induration No subcutaneous nodules, No rash, lesions, No ulcers Extremities:No digital cyanosis No clubbing, Pedal pulses intact and symmetrical Radial pulses intact and symmetrical Normal gait and station, No calf tenderness Psychiatric: decrease level of consciousness, partially oriented - Labs CBC & Chem 7: 03/19/24 04:59 03/19/24 04:59 Labs: Microbiology - Last 24 Hours (Table) 03/18/24 13:30 Blood Culture - Preliminary Blood 03/18/24 13:01 Blood Culture - Preliminary Blood Assessment and Plan Plan: Assessment and plan: 1. Acute UTI Enterococcus: Sensitive to ampicillin and Zyvox, started Unasyn, infectious disease consultation. Input appreciated supportive care. Continue current antibiotics, WBC up to 2.7 2. History of nephrolithiasis status post lithotripsy: Supportive care, consult urology, obtained abdominal CT and ultrasound. No evidence of obstruction. 3. Leukopenia likely associated with UTI: WBC 2.6, treat underlying condition. 4. Hypovolemia with decreased oral intake with hyponatremia: Continue normal saline at 75 mL/h. Sodium down to 125. Monitor, pending labs today. 5. Metabolic encephalopathy, acute secondary to UTI: Treat underlying condition. Brain CT no acute findings 6. Cognitive impairment: Continue supportive care. 7. Seizures: Continue outpatient medications. 8. Hypovolemic hyponatremia: Continue IV fluids and monitor. 9. Thrombocytopenia: Fluctuates, platelets up to 128 Disposition: Back to assisted living pending clinical progression hopefully in the next 2 days.
[2024-03-20 11:02] LABS: Basophils # (A) 0.02 X 10*3/uL (0.00-0.10); Basophils % (A) 0.8 %; Eosinophils # (A) 0.06 X 10*3/uL (0.04-0.35); Eosinophils % (A) 2.4 %; HCT 41.4 % (39.6-50.0); HGB 13.7 g/dL (13.0-17.0); Immature Grans, Automated 0 %; Lymphocytes # (A) 1.11 X 10*3/uL (0.90-5.00); Lymphocytes % (A) 43.9 %; MCH 33.1 pg (27.0-32.0); MCHC 33.1 g/dL (32.0-37.0); Mean Platelet Volume 10.1 FL (9.5-12.2); Monocytes # (A) 0.34 X 10*3/uL (0.20-1.00); Monocytes % (A) 13.4 %; NRBC Per 100 WBC 0 X 10*3/uL (0.00-0.01); Neutrophils % (A) 39.5 %; Platelet Count 133 X 10*3/uL (140-440); RBC 4.14 X 10*6/uL (4.40-5.60); WBC 2.53 X 10*3/uL (4.50-10.00)
[2024-03-20 11:49] LABS: C Reactive Protein <0.30 mg/dL (0.00-0.80)
[2024-03-20 12:02] LABS: ALT 19 U/L (10-49); AST 27 U/L (14-35); Albumin 3.8 g/dL (3.8-4.9); Alkaline Phosphatase 61 U/L (41-126); Blood Urea Nitrogen 3.5 mg/dL (9.0-27.0); Carbon Dioxide 24.3 mmol/L (21.6-31.8); Chloride 100 mmol/L (96-109); Glucose 91 mg/dL (70-110); Potassium 4.9 mmol/L (3.5-5.5); Sodium 134 mmol/L (135-145); Total Bilirubin 0.2 mg/dL (0.3-1.2); Total Protein 5.8 g/dL (6.2-8.2)
--- NOTE | 2024-03-20 13:12 | FL ---
Exam Date: 03/20/2024 12:55 PM. Modified barium swallow for dysphagia. Consistencies administered: Various consistency of barium. Fluoro time: 1 MIN 14 SEC FL No images were sent to PACS. Please see speech pathology report. DAP: Not reported mGym2 Gycm2
--- NOTE | 2024-03-20 19:56 | P.PN ---
Subjective Progress Note Date: 03/20/24 Principal diagnosis: Reason for follow-up is recurrent urinary tract infection Patient is a 58-year-old male with a past medical history significant for seizure disorder mentally impaired history of renal stones and recurrent UTI patient is a resident of an adult foster care has been sent to the hospital concerning for UTI not responding to the outpatient oral antibiotic therapy with the last outpatient urine culture was Enterococcus faecalis. On today's evaluation that is 03/20/2024, patient has been afebrile, patient is breathing comfortably and is currently on room air, patient does not seem to be in any distress he is nonverbal did not provide any history no vomiting or diarrhea reported by the nursing staff. Patient white count is 2.53 creatinine 0.7 Objective - Vital Signs Vital signs: Vital Signs Temp 97.8 F 03/20/24 00:51 Pulse 60 03/20/24 07:38 Resp 16 03/20/24 07:38 BP 105/71 03/20/24 07:38 Pulse Ox 96 03/20/24 07:38 FiO2 Intake & Output 03/19/24 03/20/24 03/20/24 18:59 06:59 18:59 Output Total 600 1800 Balance -600 -1800 Output: Urine 500 1800 Stool 100 Other: Voiding Method Diaper Diaper External Catheter External Catheter - Exam GENERAL DESCRIPTION: Middle-age male lying in bed in no distress RESPIRATORY SYSTEM: Unlabored breathing , decreased breath sounds at bases HEART: S1 S2 regular rate and rhythm , ABDOMEN: Soft , no tenderness EXTREMITIES: No edema feet - Labs CBC & Chem 7: 03/20/24 07:12 03/20/24 07:12 Labs: Abnormal Lab Results - Last 24 Hours (Table) 03/20/24 03/20/24 Range/Units 07:12 07:12 WBC 2.53 L (4.50-10.00) X 10*3/uL RBC 4.14 L (4.40-5.60) X 10*6/uL MCV 100.0 H (80.0-97.0) FL MCH 33.1 H (27.0-32.0) pg Plt Count 133 L (140-440) X 10*3/uL Neutrophils # 1.00 L (1.80-7.70) X 10*3/uL Sodium 134 L (135-145) mmol/L BUN 3.5 L (9.0-27.0) mg/dL BUN/Creatinine Ratio 5.00 L (12.00-20.00) Ratio Total Bilirubin 0.2 L (0.3-1.2) mg/dL Total Protein 5.8 L (6.2-8.2) g/dL Microbiology - Last 24 Hours (Table) 03/18/24 13:30 Blood Culture - Preliminary Blood 03/18/24 13:01 Blood Culture - Preliminary Blood Assessment and Plan (1) Recurrent UTI Current Visit: Yes Status: Acute Code(s): N39.0 - URINARY TRACT INFECTION, SITE NOT SPECIFIED SNOMED Code(s): 006170223 (2) Renal stones Current Visit: Yes Status: Acute Code(s): N20.0 - CALCULUS OF KIDNEY SNOMED Code(s): 28218188 (3) Weakness Current Visit: No Status: Acute Code(s): R53.1 - WEAKNESS SNOMED Code(s): 05613524 Plan: 1patient presented to hospital with weakness lethargy and this patient noted to have a history of kidney stone and recurrent UTI with the last urine culture done at [facility] was Enterococcus faecalis failing outpatient antibiotic therapy 2-- ultrasound kidney bladder did shows evidence of bilateral renal stones but no hydronephrosis patient has been eval by urology not recommending any intervention at this point 3-patient UA has been negative however the patient is more lethargic and seem to have issues with the swallowing per the speech pathology with a question of aspiration pneumonitis,Procalcitonin not significantly elevated chest x-ray with generalized hazy appearance question of atelectasis swallow evaluation in progress continue with Unasyn may be able to finish therapy with oral Augmentin short course Dictation was produced using [employer] software. please excuse any grammatical, word or spelling errors.
--- NOTE | 2024-03-21 16:41 | P.PN ---
Subjective Progress Note Date: 03/21/24 No new complaints today. Pt is arousable, but still does not interact with me on exam. Gen: In NAD, non-toxic HEENT: normocephalic, atraumatic, hearing acuity is intant, mucous membranes moist CVS: perfusing all extremities well, no pitting edema, Respiratory: symmetric chest expansion, no accessory muscle use, GI: soft, NTTP, ND, : no suprapubic tenderness, no CVA tenderness MSK/Derm: no rashes, cyanosis Neuro: CN II-XII intact, no motor weakness, Hospital course: This is a 58-year-old white male who was admitted from assisted living because of lethargy and decreased level of consciousness. He started to have a UTI and a urinalysis performed few days ago, cultures came positive for Enterococcus sensitive to ampicillin and Zyvox. Patient has decreased oral intake and decreased appetite. He is not a very good historian at the time of examination patient's sister is at bedside. There was no reported vomiting, no hematuria or dysuria. Assessment/plan: 1. Acute UTI Enterococcus: Sensitive to ampicillin and Zyvox, started Unasyn, infectious disease consultation. Input appreciated supportive care. Continue current antibiotics, WBC up to 2.7 2. History of nephrolithiasis status post lithotripsy: Supportive care, consult urology, obtained abdominal CT and ultrasound. No evidence of obstruction. 3. Leukopenia likely associated with UTI: WBC 2.6, treat underlying condition. 4. Hypovolemia with decreased oral intake with hyponatremia: Continue normal saline at 75 mL/h. Sodium down to 125. Monitor, pending labs today. 5. Metabolic encephalopathy, acute secondary to UTI: Treat underlying condition. Brain CT no acute findings 6. Cognitive impairment: Continue supportive care. 7. Seizures: Continue outpatient medications. 8. Hypovolemic hyponatremia: Continue IV fluids and monitor. 9. Thrombocytopenia: Fluctuates, platelets up to 128 Disposition: Back to assisted living pending clinical progression hopefully in the next 2 days. Objective - Vital Signs Vital signs: Vital Signs Temp 97.8 F 03/21/24 14:00 Pulse 67 03/21/24 14:00 Resp 18 03/21/24 14:00 BP 135/82 03/21/24 14:00 Pulse Ox 100 03/21/24 14:00 FiO2 Intake & Output 03/20/24 03/21/24 03/21/24 18:59 06:59 18:59 Intake Total 1100 Output Total 550 900 Balance -550 1100 -900 Intake: Intake, IV Titration 1100 Amount Ampicillin-Sulbactam 3 gm 100 In Sodium Chloride 0.9% 100 ml @ 200 mls/hr IVPB Q6H [facility] Rx#:[id number] Ampicillin-Sulbactam 3 gm 100 In Sodium Chloride 0.9% 100 ml @ 200 mls/hr IVPB Q6HR [facility] Rx#:[id number] Sodium Chloride 0.9% 1, 900 000 ml @ 75 mls/hr IV . [id number] [facility] Rx#:[id number] Output: Urine 550 900 Other: Voiding Method Diaper Diaper External Catheter External Catheter # Voids 2 - Labs CBC & Chem 7: 03/20/24 07:12 03/20/24 07:12 Labs: Microbiology - Last 24 Hours (Table) 03/18/24 13:30 Blood Culture - Preliminary Blood 03/18/24 13:01 Blood Culture - Preliminary Blood
--- NOTE | 2024-03-22 12:32 | P.PN ---
Subjective Progress Note Date: 03/22/24 No new complaints today. Pt is arousable, but still does not interact with me on exam. Gen: In NAD, non-toxic HEENT: normocephalic, atraumatic, hearing acuity is intant, mucous membranes moist CVS: perfusing all extremities well, no pitting edema, Respiratory: symmetric chest expansion, no accessory muscle use, GI: soft, NTTP, ND, : no suprapubic tenderness, no CVA tenderness MSK/Derm: no rashes, cyanosis Neuro: CN II-XII intact, no motor weakness, Hospital course: This is a 58-year-old white male who was admitted from assisted living because of lethargy and decreased level of consciousness. He started to have a UTI and a urinalysis performed few days ago, cultures came positive for Enterococcus sensitive to ampicillin and Zyvox. Patient has decreased oral intake and decreased appetite. He is not a very good historian at the time of examination patient's sister is at bedside. There was no reported vomiting, no hematuria or dysuria. Assessment/plan: 1. Acute UTI Enterococcus: Sensitive to ampicillin and Zyvox, started Unasyn, infectious disease consultation. Input appreciated supportive care. Continue current antibiotics, WBC up to 2.7 2. History of nephrolithiasis status post lithotripsy: Supportive care, consult urology, obtained abdominal CT and ultrasound. No evidence of obstruction. 3. Leukopenia likely associated with UTI: WBC 2.6, treat underlying condition. 4. Hypovolemia with decreased oral intake with hyponatremia: Continue normal saline at 75 mL/h. Sodium down to 125. Monitor, pending labs today. 5. Metabolic encephalopathy, acute secondary to UTI: Treat underlying condition. Brain CT no acute findings 6. Cognitive impairment: Continue supportive care. 7. Seizures: Continue outpatient medications. 8. Hypovolemic hyponatremia: Continue IV fluids and monitor. 9. Thrombocytopenia: Fluctuates, platelets up to 128 Disposition: Back to assisted living pending clinical progression hopefully in the next 2 days. Objective - Vital Signs Vital signs: Vital Signs Temp 97.8 F 03/22/24 08:00 Pulse 66 03/22/24 08:00 Resp 18 03/22/24 08:00 BP 142/83 03/22/24 08:00 Pulse Ox 99 03/22/24 08:00 FiO2 Intake & Output 03/21/24 03/22/24 03/22/24 18:59 06:59 18:59 Intake Total 240 Output Total 1700 1000 Balance -1460 -1000 Intake: Oral 240 Output: Urine 1700 1000 Other: Voiding Method Diaper Diaper Diaper External Catheter External Catheter External Catheter # Voids 1 - Labs CBC & Chem 7: 03/20/24 07:12 03/20/24 07:12 Labs: Microbiology - Last 24 Hours (Table) 03/18/24 13:30 Blood Culture - Preliminary Blood 03/18/24 13:01 Blood Culture - Preliminary Blood
--- NOTE | 2024-03-22 23:46 | P.PN ---
Subjective Progress Note Date: 03/22/24 Principal diagnosis: Reason for follow-up is recurrent urinary tract infection Patient is a 58-year-old male with a past medical history significant for seizure disorder mentally impaired history of renal stones and recurrent UTI patient is a resident of an adult foster care has been sent to the hospital concerning for UTI not responding to the outpatient oral antibiotic therapy with the last outpatient urine culture was Enterococcus faecalis. On today's evaluation that is 03/22/2024,the patient continues to be afebrile patient seen to be slightly more awake today and has been also he wants to go home no vomiting or diarrhea has been reported. No new labs has been obtained today blood culture has been negative Objective - Vital Signs Vital signs: Vital Signs Temp 97.8 F 03/22/24 08:00 Pulse 66 03/22/24 08:00 Resp 18 03/22/24 08:00 BP 142/83 03/22/24 08:00 Pulse Ox 99 03/22/24 08:00 FiO2 Intake & Output 03/21/24 03/22/24 03/22/24 18:59 06:59 18:59 Intake Total 240 Output Total 1700 1000 Balance -1460 -1000 Intake: Oral 240 Output: Urine 1700 1000 Other: Voiding Method Diaper Diaper Diaper External Catheter External Catheter External Catheter # Voids 1 - Exam Middle-age male lying in bed in no distress Unlabored breathing - Labs CBC & Chem 7: 03/20/24 07:12 03/20/24 07:12 Labs: Microbiology - Last 24 Hours (Table) 03/18/24 13:30 Blood Culture - Preliminary Blood 03/18/24 13:01 Blood Culture - Preliminary Blood Assessment and Plan (1) Recurrent UTI Current Visit: Yes Status: Acute Code(s): N39.0 - URINARY TRACT INFECTION, SITE NOT SPECIFIED SNOMED Code(s): 042988742 (2) Renal stones Current Visit: Yes Status: Acute Code(s): N20.0 - CALCULUS OF KIDNEY SNOMED Code(s): 87911678 (3) Weakness Current Visit: No Status: Acute Code(s): R53.1 - WEAKNESS SNOMED Code(s): 15496012 Plan: This is a telehealth visit 1patient presented to hospital with weakness lethargy and this patient noted to have a history of kidney stone and recurrent UTI with the last urine culture done at [facility] was Enterococcus faecalis failing outpatient antibiotic therapy 2-- ultrasound kidney bladder did shows evidence of bilateral renal stones but no hydronephrosis patient has been eval by urology not recommending any intervention at this point 3-patient UA has been negative however the patient is more lethargic and seem to have issues with the swallowing per the speech pathology with a question of aspiration pneumonitis,Procalcitonin not significantly elevated chest x-ray with generalized hazy appearance question of atelectasis, patient is currently being treated with Unasyn for additional therapy with a short course of oral Augmentin Dictation was produced using [employer] dictation software. please excuse any grammatical, word or spelling errors. Time with Patient: Less than 30
[2024-03-23 08:08] VITALS: BP 126/85; PULSE 73; RESP 18; TEMP 97
[2024-03-23] MEDS: ACETAMINOPHEN TAB 325 MG TAB PO PRN (08:29)
[2024-03-23 09:17] LABS: Magnesium 1.5 mg/dL (1.5-2.4)
[2024-03-23 09:45] LABS: Blood Urea Nitrogen 6.2 mg/dL (9.0-27.0); Calcium 8.3 mg/dL (8.7-10.3); Carbon Dioxide 23.5 mmol/L (21.6-31.8); Chloride 98 mmol/L (96-109); Glucose 88 mg/dL (70-110); Potassium 4.4 mmol/L (3.5-5.5); Sodium 130 mmol/L (135-145)
[2024-03-23 09:48] LABS: HCT 38.2 % (39.6-50.0); HGB 12.5 g/dL (13.0-17.0); MCHC 32.7 g/dL (32.0-37.0); MCV 100.8 FL (80.0-97.0); Mean Platelet Volume 9.9 FL (9.5-12.2); NRBC Per 100 WBC 0 X 10*3/uL (0.00-0.01); Platelet Count 109 X 10*3/uL (140-440); RBC 3.79 X 10*6/uL (4.40-5.60); RDW 13.1 % (11.5-14.5); WBC 2.47 X 10*3/uL (4.50-10.00)
--- NOTE | 2024-03-23 10:19 | P.DS ---
Providers Date of admission: 03/18/24 14:24 Expected date of discharge: 03/23/24 Attending physician: Randy Olivera MD Consults: 03/18/24 14:24 Consult Physician Routine Consulting Provider: Bobbi Higginbotham Consult Reason/Comments: drug resistant uti Do you want consulting provider notified?: Yes 03/18/24 15:20 Consult Physician Routine Consulting Provider: Rupert Johnson Consult Reason/Comments: nephrolithiasis Do you want consulting provider notified?: Yes Primary care physician: Stated None Hospital Course: 1. Acute UTI Enterococcus: 2. History of nephrolithiasis status post lithotripsy: 3. Leukopenia likely associated with UTI: 4. Hypovolemia with decreased oral intake with hyponatremia: 5. Metabolic encephalopathy, acute secondary to UTI: 6. Cognitive impairment: 7. Seizures: 8. Hypovolemic hyponatremia: 9. Thrombocytopenia: Gen: In NAD, non-toxic HEENT: normocephalic, atraumatic, hearing acuity is intant, mucous membranes moist CVS: perfusing all extremities well, no pitting edema, Respiratory: symmetric chest expansion, no accessory muscle use, GI: soft, NTTP, ND, : no suprapubic tenderness, no CVA tenderness MSK/Derm: no rashes, cyanosis Neuro: CN II-XII intact, no motor weakness, Hospital course: This is a 58-year-old white male who was admitted from assisted living because of lethargy and decreased level of consciousness. He started to have a UTI and a urinalysis performed few days ago, cultures came positive for Enterococcus sensitive to ampicillin and Zyvox. Patient has decreased oral intake and decreased appetite. Patient's lethargy improved with Unasyn for urinary tract infection. Patient was seen in consultation with infectious disease who recommended continuing Unasyn and then transitioning to Augmentin on discharge. Patient was also noted to have bilateral renal stones which are nonobstructing, seen for urology for this, who did not recommend any surgical intervention at this time. Patient was overall improving from initial presentation, therefore discharged back to nursing home with course of antibiotics to complete treatment for urinary tract infection. I spent 38 minutes coordinating this discharge Patient Condition at Discharge: Good Plan - Discharge Summary Discharge Rx Participant: No New Discharge Prescriptions: Continue Sodium Bicarbonate Tab 650 mg PO TID@0800,1700,2000 prednisoLONE ACETATE 1% OPHTH [Pred Forte 1%] 1 drops LEFT EYE QID lamoTRIgine [LaMICtal] 25 mg PO BID@0800,1999 lamoTRIgine [LaMICtal] 200 mg PO BID@0800,1999 LORazepam [Ativan] 1 mg PO DIRECTED PRN PRN Reason: Seizures Atropine Ophth Soln 1% 5Ml [Isopto Atropine 1% 5Ml] 1 drops LEFT EYE HS Benzocaine 20 % Gel [Orajel] 1 applic TOPICAL QID PRN PRN Reason: Pain Ergocalciferol [Vitamin D2 (1250 Mcg = 36674 Iu)] 1,250 mcg PO WE@0800 Sertraline [Zoloft] 100 mg PO DAILY@0800 Potassium Chloride ER [K-Dur 10] 10 meq PO DAILY@1700 polyethylene glycoL 3350 [Miralax] 17 gm PO DAILY@0800 Omeprazole 40 mg PO DAILY@0800 Magnesium Hydroxide [Milk of Magnesia] 2,400 mg PO HS Lactulose 20 gm PO DAILY@0800 Folic Acid 1 mg PO HS@1999 Divalproex ER [Depakote ER] 1,000 mg PO HS@1999 Divalproex ER [Depakote ER] 250 mg PO HS@1999 Brivaracetam [Briviact] 25 mg PO HS@1999 guaiFENesin-DM 100-10MG/5ML [Robitussin DM] 10 ml PO Q4H PRN MDD 6 DOSES/24 HRS PRN Reason: Cough Acetaminophen Tab [Tylenol] 325 mg PO DIRECTED PRN PRN Reason: Fever And/ Or Pain Sodium Chloride Tab 1 gm PO DAILY@1700 Dextrose Chew [Glucose Chew Tab] 4 gm PO DIRECTED PRN PRN Reason: Blood Sugar - Low Ibuprofen [Motrin Ib] 400 mg PO Q4H PRN PRN Reason: Fever And/ Or Pain Cenobamate [Xcopri] 200 mg PO HS@1999 Tamsulosin [Flomax] 0.4 mg PO DAILY risperiDONE [RisperDAL] 3 mg PO HS@1999 Sennosides [Senna] 17.2 mg PO HS@1999 risperiDONE [RisperDAL] 4 mg PO DAILY@0800 OXcarbazepine [Oxtellar Xr] 1,200 mg PO HS@1999 Levothyroxine Sodium [Synthroid] 75 mcg PO DAILY@0800 Brivaracetam [Briviact] 50 mg PO HS@1999 Propranolol [Inderal] 40 mg PO PC-SUPPER Lactose-Reduced Food [Boost] 1 can PO BID@0800,1200 Discharge Medication List Atropine Ophth Soln 1% 5Ml [Isopto Atropine 1% 5Ml] 1 drops LEFT EYE HS 04/20/15 [History] LORazepam [Ativan] 1 mg PO DIRECTED PRN 04/20/15 [History] Sodium Bicarbonate Tab 650 mg PO TID@0800,1700,199904/20/15 [History] lamoTRIgine [LaMICtal] 25 mg PO BID@08,199904/20/15 [History] lamoTRIgine [LaMICtal] 200 mg PO BID@0800,199904/20/15 [History] prednisoLONE ACETATE 1% OPHTH [Pred Forte 1%] 1 drops LEFT EYE QID 04/20/15 [History] Benzocaine 20 % Gel [Orajel] 1 applic TOPICAL QID PRN 02/14/22 [History] Brivaracetam [Briviact] 25 mg PO HS@199902/14/22 [History] Brivaracetam [Briviact] 50 mg PO HS@199902/14/22 [History] Cenobamate [Xcopri] 200 mg PO HS@199902/14/22 [History] Dextrose Chew [Glucose Chew Tab] 4 gm PO DIRECTED PRN 02/14/22 [History] Divalproex ER [Depakote ER] 1,000 mg PO HS@199902/14/22 [History] Divalproex ER [Depakote ER] 250 mg PO HS@199902/14/22 [History] Ergocalciferol [Vitamin D2 (1250 Mcg = 79260 Iu)] 1,250 mcg PO WE@79902/14/22 [History] Folic Acid 1 mg PO HS@199902/14/22 [History] Ibuprofen [Motrin Ib] 400 mg PO Q4H PRN 02/14/22 [History] Lactulose 20 gm PO DAILY@0800 02/14/22 [History] Levothyroxine Sodium [Synthroid] 75 mcg PO DAILY@0800 02/14/22 [History] Magnesium Hydroxide [Milk of Magnesia] 2,400 mg PO HS 02/14/22 [History] OXcarbazepine [Oxtellar Xr] 1,200 mg PO HS@199902/14/22 [History] Omeprazole 40 mg PO DAILY@0802/14/22 [History] Potassium Chloride ER [K-Dur 10] 10 meq PO DAILY@17002/14/22 [History] Sennosides [Senna] 17.2 mg PO HS@199902/14/22 [History] Sertraline [Zoloft] 100 mg PO DAILY@0802/14/22 [History] Tamsulosin [Flomax] 0.4 mg PO DAILY 02/14/22 [History] polyethylene glycoL 3350 [Miralax] 17 gm PO DAILY@0802/14/22 [History] risperiDONE [RisperDAL] 3 mg PO HS@199902/14/22 [History] risperiDONE [RisperDAL] 4 mg PO DAILY@0802/14/22 [History] Acetaminophen Tab [Tylenol] 325 mg PO DIRECTED PRN 03/03/24 [History] Lactose-Reduced Food [Boost] 1 can PO BID@0800,1200 03/03/24 [History] Propranolol [Inderal] 40 mg PO PC-SUPPER 03/03/24 [History] Sodium Chloride Tab 1 gm PO DAILY@169903/03/24 [History] guaiFENesin-DM 100-10MG/5ML [Robitussin DM] 10 ml PO Q4H PRN MDD 6 DOSES/24 HRS 03/03/24 [History] Follow up Appointment(s)/Referral(s): None,Stated [Primary Care Provider] - 1-2 days Residential Home[facility] [NON-STAFF] - 1 Week Discharge Disposition: OTHER INSTITUTION NOT DEFINED
[2024-03-23 12:12] LABS: Basophils # (A) 0.02 X 10*3/uL (0.00-0.10); Basophils % (A) 0.8 %; Eosinophils # (A) 0.05 X 10*3/uL (0.04-0.35); Lymphocytes % (A) 52.6 %; Monocytes # (A) 0.19 X 10*3/uL (0.20-1.00); Monocytes % (A) 7.7 %; Neutrophils % (A) 36.5 %; RBC Morphology Normal (Normal)
[2024-03-23] MEDS ORDERED: SODIUM BICARBONATE TAB 650 MG TAB PO SCH (17:00)
[2024-03-23] MEDS ORDERED: SODIUM CHLORIDE TAB 1 GM TAB PO SCH (17:00)
[2024-03-23] MEDS ORDERED: PROPRANOLOL 40 MG TAB PO SCH (18:30)
[2024-03-23] MEDS ORDERED: FOLIC ACID 1 MG TAB PO SCH (20:00)
[2024-03-23] MEDS ORDERED: ATROPINE OPHTH SOLN 1% 5ML BTL LEFT EYE SCH (21:00)
[2024-03-25] MEDS ORDERED: ERGOCALCIFEROL 1,250 MCG (50,000 IU) CAPSULE PO SCH (08:00)
== END 2024-03-23 12:47 | disposition home health service (06) | DRG 689 ==
LOC: EC 12:06 → 5NMEDONC 14:24
PROVIDERS: ADMIT Student in an Organized Health Care Education/Training Program; ATTEND Student in an Organized Health Care Education/Training Program
PROC: F00ZHZZ Bedside Swallowing and Oral Function Assessment (ICD-10-PCS; principal; 2024-03-20)
DX: N39.0 Urinary tract infection, site not specified (principal); G93.41 Metabolic encephalopathy; E87.1 Hypo-osmolality and hyponatremia; F32.A Depression, unspecified; F41.9 Anxiety disorder, unspecified; G40.909 Epilepsy, unspecified, not intractable, without status epilepticus; N20.0 Calculus of kidney; D69.6 Thrombocytopenia, unspecified; E29.1 Testicular hypofunction; Z86.19 Personal history of other infectious and parasitic diseases; D72.819 Decreased white blood cell count, unspecified; E86.1 Hypovolemia; H54.7 Unspecified visual loss; Z79.890 Hormone replacement therapy; Z79.899 Other long term (current) drug therapy; Z87.442 Personal history of urinary calculi; Z93.3 Colostomy status; B95.2 Enterococcus as the cause of diseases classified elsewhere; Z87.19 Personal history of other diseases of the digestive system; Z87.440 Personal history of urinary (tract) infections
CPT/HCPCS: 36415; 70450; 71045; 74177; 74230; 76770; 80048; 80053; 81003; 83605; 83735; 84145; 85025; 86140; 87040; 93005; 96361; 96365; 96366; 99285